=== PATIENT | female | born 1950 | race Caucasian/White ===

== ENCOUNTER 2016-06-11 16:45 | Emergency (ER) | payer OTHER ==
[2016-06-11 17:20] VITALS: BP 114/71; TEMP 99.3; BMI 16.9
--- NOTE | 2016-06-11 17:33 | ED.PDOC ---
General ED Provider: Dr. OJ KING Chief Complaint: Back Pain Stated Complaint: BACK PAIN T/L SPINE Time Seen by Physician: 17:32 (FALL LAST NIGHT NO NECK PAIN) Mode of Arrival: Walk-In Information Source: Patient Exam Limitations: No limitations Primary Care Provider: VENUS RODRIGUEZ Nursing and Triage Documentation Reviewed and Agree: Yes Review of Systems - Review Of Systems Constitutional: Reports: No symptoms Eyes: Reports: No symptoms Ears, Nose, Mouth, Throat: Reports: No symptoms Respiratory: Reports: No symptoms Cardiac: Reports: No symptoms GI: Reports: No symptoms : Reports: No symptoms Musculoskeletal: Reports: Back pain Skin: Reports: No symptoms Neurological: Reports: No symptoms Endocrine: Reports: No symptoms Hematologic/Lymphatic: Reports: No symptoms All Other Systems: Reviewed and Negative Past Medical History - Past Medical History Endocrine: Reports: None Cardiovascular: Reports: None Respiratory: Reports: COPD, Asthma Hematological: Reports: Anemia, Other (Von Willebrand) Gastrointestinal: Reports: Liver (Hepatitis C) Genitourinary: Reports: Kidney stones Neuro/Psych: Reports: Anxiety, Depression, Parkinson's Musculoskeletal: Reports: None, Other Cancer: Reports: Lung (CA right lung: October 15, 2014 appt with oncologist in [place]) Last Menstrual Period: unknown Other Pertinent Past Medical History: necrotizing fascitis right butt - Surgical History General Surgical History: Reports: , Cholecystectomy, Orthopedic (hip femur(x6), right knee, mandible surgery) - Family History Family History: Reports: Unknown - Social History Smoking Status: Current some day smoker Hx Substance Use: No Alcohol Screening: None Physical Exam - Physical Exam Appearance: Well-appearing, No pain distress, Well-nourished Eyes: SAMEERA, EOMI, Conjunctiva clear ENT: Ears normal, Nose normal, Oropharynx normal Respiratory: Airway patent, Breath sounds clear, Breath sounds equal, Respirations nonlabored Cardiovascular: RRR, Pulses normal, No rub, No murmur GI/: Soft, Nontender, No masses, Bowel sounds normal, No Organomegaly Musculoskeletal: Normal strength, ROM intact, No edema, No calf tenderness Skin: Warm, Dry, Normal color Neurological: Sensation intact, Motor intact, Reflexes intact, Cranial nerves intact, Alert, Oriented Psychiatric: Affect appropriate, Mood appropriate Critical Care Note - Critical Care Note Total Time (mins): 0 Course - Course Vital Signs: Temp Pulse Resp BP Pulse Ox 06/11/16 16:46 99.3 F 81 20 114/71 94 L Departure - Departure Time of Disposition: 19:00 Disposition: HOME SELF-CARE Discharge Problem: Backache Instructions: Back Pain (ED) Condition: Good Pt referred to PMD for follow-up: Yes Additional Instructions: Please call your Family Physician as soon as possible to schedule a follow-up appointment. Allergies/Adverse Reactions: Allergies ketorolac tromethamine [From Toradol] Adverse Reaction (Mild, Verified 06/11/16 16:53) morphine Adverse Reaction (Verified 06/11/16 16:53) nalbuphine HCl [From Nubain] Adverse Reaction (Verified 06/11/16 16:53) ondansetron HCl [From Zofran (as hydrochloride)] Adverse Reaction (Verified 16:53) pentazocine lactate [From Talwin] Adverse Reaction (Verified 06/11/16 16:53) propoxyphene napsylate [From Darvocet-N 100] Adverse Reaction (Verified 16:53) Home Medications: Ambulatory Orders Carisoprodol [Soma] 350 mg PO TID 12/16/12 Trazodone HCl 150 mg PO BEDTIME 07/19/13 Diazepam [Valium] 5 mg PO QID PRN 09/25/14 Gabapentin [Neurontin] 1,200 mg PO TID 09/25/14 Solifenacin Succinate [Vesicare] 10 mg PO DAILY 05/10/15
--- NOTE | 2016-06-11 18:44 | CT ---
EXAM: CT lumbar spine without contrast. HISTORY: Back pain post fall COMPARISON: CT lumbar spine 04/01/2011 TECHNIQUE: Serial axial images of the spine were obtained from the lower thoracic spine through the pelvis without contrast. These were viewed in multiple planes. FINDINGS: Vertebral bodies demonstrate no compression fracture or subluxation. There is narrowing and osteophyte formation noted at L3-L4 no for dash L5. L5-S1 is intact with small osteophyte forma tion. There is facet arthropathy in the lumbosacral spine. There is no lytic or blastic lesion. T here is no abnormal curvature of the lumbar spine. Old right lateral process fractures are identifi ed. L1-L2: Normal L2-L3: Normal L3-L4: Small broad-based disc bulge and facet arthropathy without central or neural foraminal narrow ing. L4-L5: Broad-based disc bulge with facet arthropathy with no central and mild left neural foraminal narrowing. There has been a left hemilaminectomy noted at this site. L5-S1: Broad-based disc bulge with facet arthropathy without significant central or neural foraminal narrowing. Limited views of the soft tissues demonstrate the lung bases are clear. There are calcifications in the kidneys bilaterally with no evidence of obstructive uropathy. There has been a prior cholecyst ectomy. There is dense material within the colon. IMPRESSION: 1. No acute compression fracture or subluxation of the lumbosacral spine. 2. Multilevel degenerative disease of the spine with posterior surgical changes at L4-L5 and mild l eft neural foraminal narrowing. If further evaluation is clinically indicated, MRI may be obtained. 3. No acute soft tissue abnormality is identified.
--- NOTE | 2016-06-11 18:46 | CT ---
EXAM: CT scan thoracic spine HISTORY: Fall COMPARISON: CT scan thoracic spine 04/01/2011 FINDINGS: Contiguous axial images obtained through the thoracic spine utilizing 3-mm collimation. Sagittal and coronal reconstructions were imaged and reviewed.. There is moderate generalized osteo penia. There is no acute fracture or dislocation. There is mild chronic compression deformity abou t the superior endplate of T6. There is no acute fracture or dislocation. Extensive cicatricial ch anges are seen within the right upper lobe which should be followed up with CT scan thorax. There a re emphysematous changes with bronchiectatic changes.. The spleen has been removed.. Nodular opaci ties in gastropathy ligament may be related to lymph nodes or varices. Lymph nodes are seen within the retrocrural region. IMPRESSION: No acute fracture or dislocation. Chronic compression deformity with moderate osteopenia. Likely cicatricial changes right upper lobe which be followed up with CT thorax.
== END 2016-06-11 18:49 | disposition home or self-care (01) ==
LOC: ED 16:45
DX: M54.9 Dorsalgia, unspecified (principal); F17.210 Nicotine dependence, cigarettes, uncomplicated
CPT/HCPCS: 99283

== ENCOUNTER 2016-09-25 14:24 | Outpatient (CLI) | payer OTHER | END 2016-09-25 14:25 | LOC: AMBL 14:24 | PROVIDERS: ATTEND Emergency Medicine | DX: M54.9 Dorsalgia, unspecified (principal); R06.9 Unspecified abnormalities of breathing; R11.10 Vomiting, unspecified; X50.0XXA Overexertion from strenuous movement or load, initial encounter ==

== ENCOUNTER 2016-10-03 15:49 | Emergency (ER) ==
[2016-10-03 16:00] VITALS: BP 153/85; TEMP 99.6; BMI 17.5
--- NOTE | 2016-10-03 16:10 | ED.PDOC ---
General ED Provider: Dr. ERNESTO JAUREGUI JR Chief Complaint: Back Pain Stated Complaint: seen at [facility] er due to back pain and unable to keep meds down--has fx of L-1--arrived with back brace on--given rx for phenergan--also sees dr jansen --oncologist due to ca lung last year--has been vomiting some blood --has nausea--[ End ] Time Seen by Physician: 16:10 Mode of Arrival: Walk-In Information Source: Patient Exam Limitations: No limitations Primary Care Provider: VENUS RODRIGUEZ Nursing and Triage Documentation Reviewed and Agree: No Review of Systems - Review Of Systems Constitutional: Reports: Malaise Eyes: Reports: No symptoms Ears, Nose, Mouth, Throat: Reports: No symptoms Respiratory: Reports: No symptoms Cardiac: Reports: No symptoms GI: Reports: No symptoms : Reports: No symptoms Musculoskeletal: Reports: Back pain Skin: Reports: No symptoms Neurological: Reports: No symptoms Endocrine: Reports: No symptoms Hematologic/Lymphatic: Reports: No symptoms All Other Systems: Other Past Medical History - Past Medical History Endocrine: Reports: None Cardiovascular: Reports: None Respiratory: Reports: COPD, Asthma Hematological: Reports: Anemia, Other (Von Willebrand) Gastrointestinal: Reports: Liver (Hepatitis C) Genitourinary: Reports: Kidney stones Neuro/Psych: Reports: Anxiety, Depression, Parkinson's Musculoskeletal: Reports: None, Other Cancer: Reports: Lung (CA right lung: October 15, 2014 appt with oncologist in [place]) Last Menstrual Period: menopause Other Pertinent Past Medical History: necrotizing fascitis right butt - Surgical History General Surgical History: Reports: , Cholecystectomy, Orthopedic (hip femur(x6), right knee, mandible surgery) - Family History Family History: Reports: Unknown - Social History Smoking Status: Current some day smoker Hx Substance Use: No Alcohol Screening: None Physical Exam - Physical Exam Appearance: Ill-appearing, Thin Pain Distress: Moderate Eyes: SAMEERA, EOMI, Conjunctiva clear ENT: Ears normal, Nose normal, Oropharynx normal Neck: Supple Respiratory: Airway patent, Breath sounds clear, Breath sounds equal, Respirations nonlabored Cardiovascular: RRR, Pulses normal, No rub, No murmur GI/: Nontender Musculoskeletal: Normal strength, ROM intact, No edema, No calf tenderness ( gum rolling machine tender) Skin: Warm, Dry, Normal color Neurological: Sensation intact, Motor intact, Reflexes intact, Cranial nerves intact, Alert, Oriented Psychiatric: Affect appropriate, Mood appropriate Critical Care Note - Critical Care Note Total Time (mins): 0 Course - Course Orders, Labs, Meds: Orders Category Date Time Status Hydromorphone HCl/Pf [Dilaudid 2 mg/ml Syringe] MEDS 10/03/16 16:18 Discontinued 2 mg IM ONCE STA Promethazine HCl [Phenergan 25 mg/ml Vial] MEDS 10/03/16 16:18 Discontinued 12.5 mg IM ONCE STA Medications Discontinued Medications Generic Name Dose Route Start Last Admin Trade Name Freq PRN Reason Stop Dose Admin Hydromorphone HCl 2 mg 10/03/16 16:18 10/03/16 16:32 Dilaudid 2 Mg/Ml Syringe IM 10/03/16 16:19 2 mg ONCE STA Administration Promethazine HCl 12.5 mg 10/03/16 16:18 10/03/16 16:31 Phenergan 25 Mg/Ml Vial IM 10/03/16 16:19 12.5 mg ONCE STA Administration Vital Signs: Temp Pulse Resp BP Pulse Ox 10/03/16 15:49 99.6 F 80 16 153/85 H 93 L Departure - Departure Time of Disposition: 16:19 Disposition: HOME SELF-CARE Discharge Problem: Vertebral fracture, closed Instructions: Vertebral Compression Fracture (ED) Condition: Good Pt referred to PMD for follow-up: Yes Additional Instructions: pain medication should be given by treating physician since you are seen in [place] recommend discuss poor pain control with PMD or with ER in town no further pain medication through [place] [facility] May also try reglan for nausea Prescriptions: Metoclopramide HCl [Reglan] 10 mg PO QID PRN #14 tablet PRN Reason: Nausea / Vomiting Allergies/Adverse Reactions: Allergies ketorolac tromethamine [From Toradol] Adverse Reaction (Mild, Verified 10/03/16 15:58) acetaminophen [From Fioricet] Adverse Reaction (Verified 10/03/16 15:59) butalbital [From Fioricet] Adverse Reaction (Verified 10/03/16 15:59) caffeine [From Fioricet] Adverse Reaction (Verified 10/03/16 15:59) morphine Adverse Reaction (Verified 10/03/16 15:58) nalbuphine HCl [From Nubain] Adverse Reaction (Verified 10/03/16 15:58) ondansetron HCl [From Zofran (as hydrochloride)] Adverse Reaction (Verified 02/11 15:58) pentazocine lactate [From Talwin] Adverse Reaction (Verified 10/03/16 15:58) propoxyphene napsylate [From Darvocet-N 100] Adverse Reaction (Verified 15:58) Home Medications: Ambulatory Orders Carisoprodol [Soma] 350 mg PO TID 12/16/12 Trazodone HCl 150 mg PO BEDTIME 07/19/13 Diazepam [Valium] 5 mg PO QID PRN 09/25/14 Gabapentin [Neurontin] 1,200 mg PO TID 09/25/14 Solifenacin Succinate [Vesicare] 10 mg PO DAILY 05/10/15 Metoclopramide HCl [Reglan] 10 mg PO QID PRN #14 tablet 10/03/16 Oxycodone HCl 10 mg PO DIRECTED PRN 10/03/16
[2016-10-03] MEDS ORDERED: PHENERGAN 25 MG/ML VIAL IM STA (16:18)
[2016-10-03] MEDS ORDERED: DILAUDID 2 MG/ML SYRINGE IM STA (16:18)
== END 2016-10-03 17:00 | disposition home or self-care (01) ==
LOC: ED 15:49
DX: M54.9 Dorsalgia, unspecified (principal); S32.010D Wedge compression fracture of first lumbar vertebra, subsequent encounter for fracture with routine healing; F17.210 Nicotine dependence, cigarettes, uncomplicated
CPT/HCPCS: 96372; 99282

== ENCOUNTER 2016-11-09 08:58 | Outpatient (CLI) | payer OTHER ==
--- NOTE | 2016-11-09 09:55 | CT ---
Exam: CT of the abdomen pelvis without intravenous or oral contrast. Comparison: 07/19/2013. CT exam of the abdomen pelvis performed 09/11/2016 Reason for exam: Generalized abdominal pain. FINDINGS: Image interpretation is limited by the lack of intravenous contrast. There is mild basilar atelectasis. There is a partially spiculated density in the right lung base m easuring 7 mm best seen on axial image number 12 and coronal image number 57. No pleural effusion. The gallbladder and spleen have been removed. Calcifications are seen within the abdominal aorta an d distal arterial vasculature. There is mild thickening of the gastric wall. High density lesions are seen in the parenchyma of both kidneys. There is an 8 mm exophytic nodular isodense lesion in the left inferior renal pole. No hydronephrosis or hydroureter is seen in either kidney. No focal small bowel dilatation or transition point. No inflammatory changes are seen in the abdomi nal or pelvic fat. No intra-abdominal free air. Operative changes are seen within the pelvis. Mild rectal wall thickening. There is small amount of pelvic free fluid. Compression deformity in the L1 vertebral body with appr oximately 50% loss of vertebral body height , new since 09/11/2016. Impression: 1. Compression deformity in the L1 vertebral body that is new when compared to the CT exam performed on 09/11/2016. 2. Mild thickening of the distal rectum that may be accentuated by non distension. If clinical conc daniella exists, direct visualization may be performed. 3. Mild thickening of the gastric wall of unknown clinical significance. If clinical concern exists , direct visualization may be performed. 4. Mild basilar atelectasis with a 7 mm nodular density in the right lung base. Recommend 3-month follow-up CT of the chest to document stability / resolution
== END 2016-11-09 08:59 | disposition home or self-care (01) ==
LOC: RAD 08:58
PROVIDERS: ATTEND Emergency Medicine
DX: R10.84 Generalized abdominal pain (principal)

== ENCOUNTER → 2016-11-14 | Outpatient (POV) | LOC: OUTPT 00:01 | PROVIDERS: ATTEND Otolaryngology | DX: H91.90 Unspecified hearing loss, unspecified ear (principal) | CPT/HCPCS: 92557; 92567 ==

== ENCOUNTER 2016-12-15 11:37 | Outpatient (CLI) ==
[2016-12-15 12:29] LABS: BASOPHILS # (AUTO) 0.1 K/uL (0-0.2); BASOPHILS % (AUTO) 0.9 % (0.0-3.0); EOSINOPHILS # (AUTO) 0.2 K/ul (0.0-0.7); EOSINOPHILS % (AUTO) 1.7 % (0.0-7.0); HEMATOCRIT 46.6 % (37.0-47.0); HEMOGLOBIN 14.8 g/dl (12.0-16.0); IMMATURE GRANULOCYTE % (AUTO) 3.6 % (0.0-5.0); LYMPHOCYTES # (AUTO) 2.1 K/uL (0.60-3.4); LYMPHOCYTES % (AUTO) 23.4 (10.0-50.0); MEAN CORPUSCULAR HEMOGLOBIN 29.3 pg (27.0-31.0); MEAN CORPUSCULAR HGB CONC 31.8 (31.8-35.4); MEAN CORPUSCULAR VOLUME 92.3 fl (81.0-99.0); MONOCYTES # (AUTO) 3.4 K/uL (0.4-2.0); MONOCYTES % (AUTO) 37.2 (0-10); NEUTROPHILS % (AUTO) 33.2; PLATELET COUNT 211 10^3/uL (140-440); RED BLOOD COUNT 5.05 10^6/ul (4.20-5.40); WHITE BLOOD COUNT 9.09 K/ul (4.6-10.2)
[2016-12-15 12:54] LABS: ALBUMIN 4.4 g/dL (3.4-5.0); ALBUMIN/GLOBULIN RATIO 1.22; ANION GAP 18.1; BILIRUBIN,TOTAL 0.57 mg/dL (0.00-1.20); BUN/CREATININE RATIO 10.52; CALCIUM 9.7 mg/dL (8.2-10.2); CREATININE 0.76 mg/dL (0.60-1.30); POTASSIUM 4.1 mmol/L (3.5-5.10)
== END 2016-12-15 11:38 | disposition home or self-care (01) ==
LOC: LAB 11:37
PROVIDERS: ATTEND Emergency Medicine
DX: C34.11 Malignant neoplasm of upper lobe, right bronchus or lung (principal); J41.8 Mixed simple and mucopurulent chronic bronchitis
CPT/HCPCS: 36415; 80053; 85025

== ENCOUNTER 2017-02-11 15:44 | Inpatient (IN) ==
[2017-02-11] MEDS ORDERED: ROCEPHIN IM STA (16:05)
[2017-02-11] MEDS ORDERED: LIDOCAINE HCL 1% SDV SUBCUT STA (16:05)
[2017-02-11] MEDS ORDERED: ZITHROMAX PO STA (16:05)
[2017-02-11] MEDS ORDERED: DECADRON 4 MG/ML SDV IM STA (16:05)
[2017-02-11] MEDS ORDERED: DUONEB NEB STA (16:07)
--- NOTE | 2017-02-11 16:29 | CT ---
EXAM: CT chest without contrast HISTORY: Cough TECHNIQUE: Multi-slice transaxial helical with coronal and sagittal reformed images CONTRAST: None COMPARISON: CT chest from 09/24/2014 FINDINGS: The ascending thoracic aorta is ectatic to 33 mm. The aortic arch and descending thoracic aorta have normal caliber. The heart size is normal. No pericardial or pleural effusions are eviden t. No pericardial or pleural effusions are detected. No suspicious lymphadenopathy is evident. The lungs are mildly emphysematous. There is probable fibrosis in the right upper lobe at this site of a previous mass. There are multiple alveolar opacities in the right lower lobe and to a lesser degre e the left lower lobe. There is mild bronchiectasis with mucus plugging. Minimal additional opaciti es are noted middle lobe. There are cortical calcifications in the right kidney. There is a cyst at the interpolar region of t he left kidney that is slightly exophytic and high in attenuation. The spleen has been resected sinc e the prior study. The gallbladder is absent without biliary dilatation. The pancreas and adrenal g lands are normal. No hepatic lesions. The bones are free of suspicious osteolytic or osteoblastic lesions. There are chronic compression f ractures at L1, T7, and T6. The thoracic kyphosis is increased secondarily. IMPRESSION: 1. Bibasilar pneumonia. 2. Fibrosis in the right upper lobe at the site of a previous suspicious nodule. 3. Mild emphysema. 4. Bronchiectasis with mucus plugging. Number five interval splenectomy. 6. Hypodensity at the interpolar region of the left kidney has Hounsfield attenuation greater than e xpected for a simple cyst. Recommend follow-up ultrasound. 7. Chronic compression fractures at L1, T7, and 02/06.
[2017-02-11 16:33] LABS: HEMATOCRIT 40.2 % (37.0-47.0); HEMOGLOBIN 13.3 g/dl (12.0-16.0); MEAN CORPUSCULAR HGB CONC 33.1 (31.8-35.4); MEAN CORPUSCULAR VOLUME 90.7 fl (81.0-99.0); PLATELET COUNT 348 10^3/uL (140-440); RED BLOOD COUNT 4.43 10^6/ul (4.20-5.40)
[2017-02-11 16:51] LABS: WHITE BLOOD COUNT 26.25 K/ul (4.6-10.2)
[2017-02-11 16:52] LABS: ANISOCYTOSIS NOT PRESENT (NOT PRESENT)
[2017-02-11 17:00] LABS: ALBUMIN 3.6 g/dL (3.4-5.0); ALBUMIN/GLOBULIN RATIO 1.03; ANION GAP 13.4; BILIRUBIN,TOTAL 0.27 mg/dL (0.00-1.20); BUN/CREATININE RATIO 22.47; CALCIUM 10.6 mg/dL (8.2-10.2); CREATININE 0.89 mg/dL (0.60-1.30); POTASSIUM 3.4 mmol/L (3.5-5.10); TOTAL PROTEIN 7.1 g/dL (5.8-8.1)
[2017-02-11] MEDS ORDERED: ZITHROMAX 500 MG in SODIUM CHLORIDE 250 ML IV STA (17:10)
[2017-02-11] MEDS ORDERED: NON-FORMULARY MEDICATION (Oxycodone Hcl [Oxycodone Hcl] 10 MG) PO PRN (17:11)
--- NOTE | 2017-02-11 17:16 | ED.PDOC ---
General ED Provider: Dr. OJ KING Chief Complaint: Respiratory Complaint Stated Complaint: cough,wheez Time Seen by Physician: 16:00 Mode of Arrival: Walk-In Information Source: Patient Exam Limitations: No limitations Primary Care Provider[facility] Nursing and Triage Documentation Reviewed and Agree: Yes Respiratory Complaint Exam - Respiratory Complaint/Exam Symptoms Are: Still present Timing: Constant Initial Severity: Mild Current Severity: Mild Location: Throat, Chest Character: Reports: Non-productive cough Aggravating: Reports: None Alleviating: Reports: Spontaneous resolution Associated Signs and Symptoms: Reports: Wheezing, Nasal congestion. Denies: Rapid breathing, Dyspnea, Fever, Chills, Chest pain, Pleuritic chest pain, Hemoptysis, Dizziness, Calf pain, Calf swelling, Edema, URI, Hoarseness, Sinus discomfort, Vomiting, Sore throat, Weight loss, Decreased oral intake, Increased thirst, Increased appetite, Increased urination Related History: Reports: Similar episode History of Healthcare-Acquired Pneumonia: No Related Surgical History: Reports: None Pulmonary Embolism Risk Factors: Bedrest Review of Systems - Review Of Systems Constitutional: Reports: Chills, Fever, Malaise, Weakness Eyes: Reports: No symptoms Ears, Nose, Mouth, Throat: Reports: No symptoms Respiratory: Reports: Cough, Short of air, Wheezing Cardiac: Reports: No symptoms GI: Reports: No symptoms : Reports: No symptoms Musculoskeletal: Reports: No symptoms Skin: Reports: No symptoms Neurological: Reports: No symptoms Endocrine: Reports: No symptoms Hematologic/Lymphatic: Reports: No symptoms All Other Systems: Reviewed and Negative Past Medical History - Past Medical History Endocrine: Reports: None Cardiovascular: Reports: None Respiratory: Reports: COPD, Asthma Hematological: Reports: Anemia, Other (Von Willebrand) Gastrointestinal: Reports: Liver (Hepatitis C) Genitourinary: Reports: Kidney stones Neuro/Psych: Reports: Anxiety, Depression, Parkinson's Musculoskeletal: Reports: None, Other Cancer: Reports: Lung (CA right lung: October 15, 2014 appt with oncologist in [place]) Last Menstrual Period: menopause Other Pertinent Past Medical History: necrotizing fascitis right butt - Surgical History General Surgical History: Reports: , Cholecystectomy, Orthopedic (hip femur(x6), right knee, mandible surgery) - Family History Family History: Reports: Unknown - Social History Smoking Status: Former smoker Hx Substance Use: No Alcohol Screening: None Physical Exam - Physical Exam Appearance: Well-appearing, No pain distress, Well-nourished Eyes: SAMEERA, EOMI, Conjunctiva clear ENT: Ears normal, Nose normal, Oropharynx normal Respiratory: Rhonchi, Wheezes Cardiovascular: RRR, Pulses normal, No rub, No murmur GI/: Soft, Nontender, No masses, Bowel sounds normal, No Organomegaly Musculoskeletal: Normal strength, ROM intact, No edema, No calf tenderness Skin: Warm, Dry, Normal color Neurological: Sensation intact, Motor intact, Reflexes intact, Cranial nerves intact, Alert, Oriented Psychiatric: Affect appropriate, Mood appropriate Interpretation - Radiology Interpretation Radiology Interpretation By: Radiologist Radiology Results: Positive (pnumonia) Physician Notification - Case Discussed Physician Notified: pmd Time of Notification: 17:15 (admitt) Critical Care Note - Critical Care Note Total Time (mins): 0 Course - Course Hematology/Chemistry: 02/11/17 16:23 02/11/17 16:23 Orders, Labs, Meds: Lab Review 02/11/17 02/11/17 02/11/17 16:23 16:23 16:23 WBC 26.25 H RBC 4.43 Hgb 13.3 Hct 40.2 MCV 90.7 MCH 30.0 MCHC 33.1 RDW Coeff of Krista 16.6 H Plt Count 348 Neutrophils % (Manual) 67.0 Band Neutrophils % 1.0 Lymphocytes % (Manual) 5.0 L Monocytes % (Manual) 23.0 H Metamyelocytes % 1.0 Myelocytes % 1.0 Reactive Lymphocytes 2.0 Anisocytosis Not present D-Dimer (Manual) 727.37 Sodium 141 Potassium 3.4 L Chloride 104 Carbon Dioxide 27 Anion Gap 13.4 BUN 20 H Creatinine 0.89 Estimated GFR (MDRD) 63.00 BUN/Creatinine Ratio 22.47 Glucose 81 L Lactic Acid Calcium 10.6 H Total Bilirubin 0.27 AST 14 L ALT 11 L Alkaline Phosphatase 79 Total Protein 7.1 Albumin 3.6 Globulin 3.5 Albumin/Globulin Ratio 1.03 02/11/17 16:23 WBC RBC Hgb Hct MCV MCH MCHC RDW Coeff of Krista Plt Count Neutrophils % (Manual) Band Neutrophils % Lymphocytes % (Manual) Monocytes % (Manual) Metamyelocytes % Myelocytes % Reactive Lymphocytes Anisocytosis D-Dimer (Manual) Sodium Potassium Chloride Carbon Dioxide Anion Gap BUN Creatinine Estimated GFR (MDRD) BUN/Creatinine Ratio Glucose Lactic Acid 12.6 Calcium Total Bilirubin AST ALT Alkaline Phosphatase Total Protein Albumin Globulin Albumin/Globulin Ratio Orders Category Date Time Status ADMIT PATIENT INPATIENT .TO [facility] B[facility] ADMISSION 02/11/17 17: 08 Ordered ABG DRAW REQUEST Stat CARDIO 02/11/17 16:06 Ordered EKG-(IP & OP ONLY) DAILY CARDIO 02/12/17 06:00 Ordered EKG-(IP & OP ONLY) DAILY CARDIO 02/13/17 06:00 Ordered EKG-(IP & OP ONLY) DAILY CARDIO 02/14/17 06:00 Ordered NEBULIZER TREATMENT Stat CARDIO 02/11/17 16:07 Ordered OXYGEN Routine CARDIO 02/11/17 17:09 Ordered ACTIVITY .Complete BR CARE 02/11/17 17:08 Ordered TELEMETRY MONITORING TELE CARE 02/11/17 17:09 Ordered REGULAR DIET DIETARY 02/11/17 Dinner Ordered ABG Stat LAB 02/11/17 16:06 Ordered BLOOD CULTURE Stat LAB 02/11/17 16:23 Received BNP [B-TYPE NATRIURETIC PEPTIDE] Stat LAB 02/11/17 17:08 Ordered CBC W/ AUTO DIFF DAILY@0600 LAB 02/12/17 06:00 Ordered CBC W/ AUTO DIFF DAILY@0600 LAB 02/13/17 06:00 Ordered CBC W/ AUTO DIFF DAILY@0600 LAB 02/14/17 06:00 Ordered CBC W/ AUTO DIFF DAILY@0600 LAB 02/15/17 06:00 Ordered CBC W/ AUTO DIFF DAILY@0600 LAB 02/16/17 06:00 Ordered CBC W/ AUTO DIFF DAILY@0600 LAB 02/17/17 06:00 Ordered CBC W/ AUTO DIFF DAILY@0600 LAB 02/18/17 06:00 Ordered CBC W/ AUTO DIFF DAILY@0600 LAB 02/19/17 06:00 Ordered CBC W/ AUTO DIFF DAILY@0600 LAB 02/20/17 06:00 Ordered CBC W/ AUTO DIFF DAILY@0600 LAB 02/21/17 06:00 Ordered CBC W/ AUTO DIFF DAILY@0600 LAB 02/22/17 06:00 Ordered CBC W/ AUTO DIFF DAILY@0600 LAB 02/23/17 06:00 Ordered CBC W/ AUTO DIFF DAILY@0600 LAB 02/24/17 06:00 Ordered CBC W/ AUTO DIFF DAILY@0600 LAB 02/25/17 06:00 Ordered CBC W/ AUTO DIFF DAILY@06 LAB 02/26/17 06:00 Ordered CBC W/ AUTO DIFF DAILY@06 LAB 02/27/17 06:00 Ordered CBC W/ AUTO DIFF DAILY@0600 LAB 02/28/17 06:00 Ordered CBC W/ AUTO DIFF DAILY@0600 LAB 03/01/17 06:00 Ordered CBC W/ AUTO DIFF DAILY@0600 LAB 03/02/17 06:00 Ordered CBC W/ AUTO DIFF DAILY@06 LAB 03/03/17 06:00 Ordered CBC W/ AUTO DIFF Stat LAB 02/11/17 16:23 Completed COMPREHENSIVE METABOLIC PANEL DAILY@0600 LAB 02/12/17 06:00 Ordered COMPREHENSIVE METABOLIC PANEL DAILY@0600 LAB 02/13/17 06:00 Ordered COMPREHENSIVE METABOLIC PANEL DAILY@0600 LAB 02/14/17 06:00 Ordered COMPREHENSIVE METABOLIC PANEL DAILY@0600 LAB 02/15/17 06:00 Ordered COMPREHENSIVE METABOLIC PANEL DAILY@0600 LAB 02/16/17 06:00 Ordered COMPREHENSIVE METABOLIC PANEL DAILY@0600 LAB 02/17/17 06:00 Ordered COMPREHENSIVE METABOLIC PANEL DAILY@0600 LAB 02/18/17 06:00 Ordered COMPREHENSIVE METABOLIC PANEL DAILY@06 LAB 02/19/17 06:00 Ordered COMPREHENSIVE METABOLIC PANEL DAILY@06 LAB 02/20/17 06:00 Ordered COMPREHENSIVE METABOLIC PANEL DAILY@0600 LAB 02/21/17 06:00 Ordered COMPREHENSIVE METABOLIC PANEL DAILY@0600 LAB 02/22/17 06:00 Ordered COMPREHENSIVE METABOLIC PANEL DAILY@0600 LAB 02/23/17 06:00 Ordered COMPREHENSIVE METABOLIC PANEL DAILY@0600 LAB 02/24/17 06:00 Ordered COMPREHENSIVE METABOLIC PANEL DAILY@0600 LAB 02/25/17 06:00 Ordered COMPREHENSIVE METABOLIC PANEL DAILY@0600 LAB 02/26/17 06:00 Ordered COMPREHENSIVE METABOLIC PANEL DAILY@0600 LAB 02/27/17 06:00 Ordered COMPREHENSIVE METABOLIC PANEL DAILY@0600 LAB 02/28/17 06:00 Ordered COMPREHENSIVE METABOLIC PANEL DAILY@0600 LAB 03/01/17 06:00 Ordered COMPREHENSIVE METABOLIC PANEL DAILY@0600 LAB 03/02/17 06:00 Ordered COMPREHENSIVE METABOLIC PANEL DAILY@0600 LAB 03/03/17 06:00 Ordered COMPREHENSIVE METABOLIC PANEL Stat LAB 09/17/17 16:23 Completed CREATINE KINASE Q8H LAB 02/11/17 23:15 Ordered CREATINE KINASE Q8H LAB 02/12/17 07:15 Ordered D-DIMER Stat LAB 02/11/17 16:23 Completed LACTIC ACID Stat LAB 02/11/17 16:23 Completed MANUAL DIFFERENTIAL Stat LAB 02/11/17 16:23 Completed MOLECULAR GROUP A STREP Stat LAB 02/11/17 16:05 Results PROCALCITONIN Stat LAB 02/11/17 16:23 Received STREP SCREEN Stat LAB 02/11/17 16:05 Results TROPONIN I Q8H LAB 02/11/17 23:15 Ordered TROPONIN I Q8H LAB 02/12/17 07:15 Ordered UA [URINALYSIS C & S IF INDICATED] Stat LAB 02/11/17 16:07 Uncollected Albuterol Sulfate [Proair Hfa] MEDS 02/11/17 17:30 Ordered 8.5 gm IH Q4-6H Azithromycin Inj [Zithromax] 500 mg MEDS 02/11/17 17:10 Ordered 0.9 % Sodium Chloride [Sodium Chloride] 250 ml IV ONCE Azithromycin [Zithromax] MEDS 02/11/17 16:05 Discontinued 500 mg PO ONCE STA Ceftriaxone Sodium [Rocephin] MEDS 02/11/17 16:05 Discontinued 1 gm IM ONCE STA Ceftriaxone Sodium [Rocephin] 1 gm MEDS 02/12/17 09:00 Ordered 0.9 % Sodium Chloride [Sodium Chloride] 50 ml IV DAILY Dexamethasone 4 mg/ml Inj [Decadron 4 mg/ml Sdv] MEDS 02/11/17 16:05 Discontinued 8 mg IM ONCE STA Diazepam [Valium] MEDS 02/11/17 17:11 Ordered 5 mg PO QID PRN Ipratropium/Albuterol Neb [Duoneb] MEDS 02/11/17 16:07 Discontinued 1 vial NEB ONCE STA Lidocaine HCl/Pf [Lidocaine HCl 1% Sdv] MEDS 02/11/17 16:05 Discontinued 5 ml SUBCUT ONCE STA Oxycodone HCl [Oxycodone HCl] MEDS 02/11/17 17:11 Ordered 10 mg PO DIRECTED PRN Sodium Chloride 0.9% [Sodium Chloride] 1,000 ml MEDS 02/11/17 17:30 Ordered IV 75 mls/hr CHEST, 2 VIEWS PA & LAT Stat RADS 02/12/17 07:[address] CHEST W/O CONTRAST Stat RADS 02/11/17 16:04 Completed Medications Generic Name Dose Route Start Last Admin Trade Name Freq PRN Reason Stop Dose Admin Ceftriaxone Sodium 1 gm/ 50 mls @ 75 mls/hr 02/12/17 09:00 Sodium Chloride IV DAILY EMY Sodium Chloride 1,000 mls @ 75 mls/hr 02/11/17 17:30 Sodium Chloride IV .[id number] EMY Azithromycin 500 mg/ Sodium 250 mls @ 125 mls/hr 02/11/17 17:10 Chloride IV 02/11/17 19:09 ONCE STA Discontinued Medications Generic Name Dose Route Start Last Admin Trade Name Freq PRN Reason Stop Dose Admin Albuterol/Ipratropium 1 vial 02/11/17 16:07 Duoneb NEB 02/11/17 16:08 ONCE STA Azithromycin 500 mg 02/11/17 16:05 02/11/17 16:45 Zithromax PO 02/11/17 16:06 500 mg ONCE STA Administration Ceftriaxone Sodium 1 gm 02/11/17 16:05 02/11/17 16:49 Rocephin IM 02/11/17 16:06 1 gm ONCE STA Administration Dexamethasone Sodium Phosphate 8 mg 02/11/17 16:05 02/11/17 16:49 Decadron 4 Mg/Ml Sdv IM 02/11/17 16:06 8 mg ONCE STA Administration Lidocaine HCl 5 ml 02/11/17 16:05 02/11/17 16:50 Lidocaine Hcl 1% Sdv SUBCUT 02/11/17 16:06 5 ml ONCE STA Administration Vital Signs: Temp Pulse Resp BP Pulse Ox 02/11/17 15:45 98.8 F 112 H 24 151/74 H 86 L Departure - Departure Time of Disposition: 17:15 Disposition: ADMITTED INPATIENT Discharge Problem: Pneumonia Qualifiers: Pneumonia type: due to unspecified organism Lung location: unspecified part of lung Instructions: Bacterial Pneumonia (ED) Condition: Good Pt referred to PMD for follow-up: Yes Allergies/Adverse Reactions: Allergies ketorolac tromethamine [From Toradol] Adverse Reaction (Mild, Verified 02/11/17 15:54) acetaminophen [From Fioricet] Adverse Reaction (Verified 02/11/17 15:54) butalbital [From Fioricet] Adverse Reaction (Verified 02/11/17 15:54) caffeine [From Fioricet] Adverse Reaction (Verified 02/11/17 15:54) morphine Adverse Reaction (Verified 02/11/17 15:54) nalbuphine HCl [From Nubain] Adverse Reaction (Verified 02/11/17 15:54) ondansetron HCl [From Zofran (as hydrochloride)] Adverse Reaction (Verified 15:54) pentazocine lactate [From Talwin] Adverse Reaction (Verified 02/11/17 15:54) propoxyphene napsylate [From Darvocet-N 100] Adverse Reaction (Verified 15:54) Home Medications: Ambulatory Orders Diazepam [Valium] 5 mg PO QID PRN 09/25/14 Gabapentin [Neurontin] 800 mg PO QID 09/25/14 Oxycodone HCl 10 mg PO DIRECTED PRN 10/03/16
[2017-02-11] MEDS ORDERED: SODIUM CHLORIDE 1,000 ML IV SCH (17:30)
[2017-02-11 17:47] LABS: ABG PCO2 41.5 mmHg (35-45); ABG PH 7.435 (7.35-7.45)
[2017-02-11 17:48] LABS: ABG BASE EXCESS 4 (-2.0-2.0); ABG HCO3 27.8 (22.0-26.0); ABG TCO2 29 (22.0-28.0)
[2017-02-11 19:00] LABS: BILIRUBIN,URINE Negative (NEGATIVE); KETONES,URINE Negative (NEGATIVE); LEUKOCYTE ESTERASE ,URINE 2+ (NEGATIVE); NITRITE,URINE Negative (NEGATIVE); PROTEIN,URINE Negative (NEGATIVE); URINE, BLOOD Negative (NEGATIVE)
[2017-02-11 19:08] LABS: ADD URINE MICROSCOPIC YES; BACTERIA,URINE TRACE (NOT PRESENT)
[2017-02-11 19:54] VITALS: BMI 18.3
[2017-02-11] MEDS ORDERED: NON-FORMULARY MEDICATION (Gabapentin [Neurontin] 800 MG) PO SCH ×22 (21:45)
[2017-02-11] MEDS ORDERED: NON-FORMULARY MEDICATION (Trazodone Hcl [Trazodone Hcl] 150 MG) PO SCH ×22 (21:45)
[2017-02-11] MEDS ORDERED: NEURONTIN ONE ×2 (21:50)
[2017-02-11] MEDS ORDERED: DESYREL ONE (21:51)
[2017-02-11] MEDS ORDERED: OXYCODONE ONE (21:52)
[2017-02-11] MEDS: SOLU-MEDROL 40 MG IVP SCH (21:56)
[2017-02-11] MEDS: VALIUM PO PRN (22:08)
[2017-02-11 23:23] LABS: TROPONIN I 0.015 ng/ml (0.0000-0.4000)
[2017-02-12] MEDS: SOLU-MEDROL 40 MG IVP SCH ×3 (04:01→21:54)
[2017-02-12] MEDS ORDERED: OXYCODONE ONE ×2 (05:12→09:42)
[2017-02-12 07:24] LABS: HEMATOCRIT 39.7 % (37.0-47.0); HEMOGLOBIN 12.8 g/dl (12.0-16.0); MEAN CORPUSCULAR HEMOGLOBIN 29.8 pg (27.0-31.0); MEAN CORPUSCULAR HGB CONC 32.2 (31.8-35.4); MEAN CORPUSCULAR VOLUME 92.5 fl (81.0-99.0); PLATELET COUNT 335 10^3/uL (140-440); RED BLOOD COUNT 4.29 10^6/ul (4.20-5.40); WHITE BLOOD COUNT 25.89 K/ul (4.6-10.2)
[2017-02-12 07:31] LABS: ANISOCYTOSIS NOT PRESENT (NOT PRESENT)
[2017-02-12 07:42] LABS: ALBUMIN 2.9 g/dL (3.4-5.0); ALBUMIN/GLOBULIN RATIO 0.94; ANION GAP 11.5; BILIRUBIN,TOTAL 0.23 mg/dL (0.00-1.20); BUN/CREATININE RATIO 27.94; CALCIUM 9.4 mg/dL (8.2-10.2); CREATININE 0.68 mg/dL (0.60-1.30); POTASSIUM 4.5 mmol/L (3.5-5.10); TROPONIN I 0.011 ng/ml (0.0000-0.4000)
[2017-02-12] MEDS: NEURONTIN PO SCH ×8 (08:32→21:55)
[2017-02-12] MEDS: ROCEPHIN 1 GM in SODIUM CHLORIDE 50 ML IV SCH (08:33)
[2017-02-12] MEDS: MUCINEX PO SCH ×2 (09:35→21:55)
[2017-02-12] MEDS: VALIUM PO PRN ×2 (09:36→22:05)
[2017-02-12] MEDS ORDERED: PERCOCET 10-325 PO PRN (09:53)
--- NOTE | 2017-02-12 10:35 | DI ---
EXAM: Two views of the chest. History: Pneumonia Comparison: Chest CT 02/11 2017 Findings: Heart size is normal. Scarring or infiltrate again seen within the right upper lobe. No developing opacities. The visualized osseous structures unchanged. No pleural fluid and no pneumoth orax. Emphysema. Impression: No significant interval change in the scarring or infiltrate within the right upper lobe . No developing opacities.
[2017-02-12] MEDS: SODIUM CHLORIDE 1,000 ML IV SCH (11:06)
[2017-02-12] MEDS: OXYCODONE PO PRN ×2 (11:56→19:26)
[2017-02-12] MEDS: DUONEB NEB SCH ×3 (13:47→23:13)
[2017-02-12] MEDS ORDERED: PROAIR HFA IH ONE (19:11)
[2017-02-12] MEDS: PROAIR HFA IH SCH (19:11)
[2017-02-12] MEDS: DESYREL PO SCH (21:55)
[2017-02-13] MEDS: PROAIR HFA IH SCH ×3 (00:36→21:25)
[2017-02-13] MEDS: SOLU-MEDROL 40 MG IVP SCH ×3 (04:11→20:37)
[2017-02-13] MEDS: OXYCODONE PO PRN ×4 (04:27→23:09)
[2017-02-13 05:03] LABS: HEMOGLOBIN 12.7 g/dl (12.0-16.0); MEAN CORPUSCULAR HEMOGLOBIN 29.6 pg (27.0-31.0); MEAN CORPUSCULAR HGB CONC 31.8 (31.8-35.4); MEAN CORPUSCULAR VOLUME 93.2 fl (81.0-99.0); PLATELET COUNT 378 10^3/uL (140-440); RED BLOOD COUNT 4.29 10^6/ul (4.20-5.40); WHITE BLOOD COUNT 33.46 K/ul (4.6-10.2)
[2017-02-13 05:20] LABS: ALBUMIN/GLOBULIN RATIO 1.03; ANION GAP 12.4; BILIRUBIN,TOTAL 0.23 mg/dL (0.00-1.20); BUN/CREATININE RATIO 27.77; CALCIUM 9.3 mg/dL (8.2-10.2); CREATININE 0.72 mg/dL (0.60-1.30); POTASSIUM 4.4 mmol/L (3.5-5.10); TOTAL PROTEIN 5.9 g/dL (5.8-8.1)
[2017-02-13 05:22] LABS: ANISOCYTOSIS NOT PRESENT (NOT PRESENT)
[2017-02-13] MEDS: DUONEB NEB SCH ×4 (05:25→23:28)
[2017-02-13] MEDS: NEURONTIN PO SCH ×8 (08:54→20:38)
[2017-02-13] MEDS: MUCINEX PO SCH ×2 (08:54→20:37)
[2017-02-13] MEDS: VALIUM PO PRN ×2 (09:00→16:59)
[2017-02-13] MEDS: ROCEPHIN 1 GM in SODIUM CHLORIDE 50 ML IV SCH (09:02)
[2017-02-13] MEDS: SODIUM CHLORIDE 1,000 ML IV SCH ×2 (09:45→18:38)
[2017-02-13] MEDS: VANCOMYCIN 500 MG in SODIUM CHLORIDE 100 ML IV SCH ×2 (10:02→20:37)
[2017-02-13] MEDS: ZITHROMAX 500 MG in SODIUM CHLORIDE 250 ML IV SCH (11:34)
[2017-02-13] MEDS: VARENICLINE TARTRATE 1 MG PO SCH ×2 (11:54→20:38)
[2017-02-13] MEDS: DESYREL PO SCH (20:38)
[2017-02-13] MEDS ORDERED: PROAIR HFA IH PRN (21:24)
[2017-02-14] MEDS: SOLU-MEDROL 40 MG IVP SCH (04:10)
[2017-02-14 05:05] LABS: HEMATOCRIT 38.8 % (37.0-47.0); HEMOGLOBIN 12.5 g/dl (12.0-16.0); MEAN CORPUSCULAR HEMOGLOBIN 29.9 pg (27.0-31.0); MEAN CORPUSCULAR HGB CONC 32.2 (31.8-35.4); MEAN CORPUSCULAR VOLUME 92.8 fl (81.0-99.0); PLATELET COUNT 356 10^3/uL (140-440); RED BLOOD COUNT 4.18 10^6/ul (4.20-5.40)
[2017-02-14 05:09] LABS: ANISOCYTOSIS NOT PRESENT (NOT PRESENT)
[2017-02-14] MEDS: DUONEB NEB SCH ×4 (05:13→23:27)
[2017-02-14 05:26] LABS: ALBUMIN 2.8 g/dL (3.4-5.0); ANION GAP 11.2; BILIRUBIN,TOTAL 0.21 mg/dL (0.00-1.20); BUN/CREATININE RATIO 27.53; CALCIUM 8.9 mg/dL (8.2-10.2); CREATININE 0.69 mg/dL (0.60-1.30); POTASSIUM 4.2 mmol/L (3.5-5.10); TOTAL PROTEIN 5.6 g/dL (5.8-8.1)
[2017-02-14] MEDS: OXYCODONE PO PRN ×3 (07:11→20:36)
[2017-02-14] MEDS: NEURONTIN PO SCH ×8 (08:04→20:30)
[2017-02-14] MEDS: VALIUM PO PRN ×2 (08:05→22:00)
[2017-02-14] MEDS: VARENICLINE TARTRATE 1 MG PO SCH ×2 (08:05→20:30)
[2017-02-14] MEDS: MUCINEX PO SCH ×2 (08:05→20:30)
[2017-02-14] MEDS: VANCOMYCIN 500 MG in SODIUM CHLORIDE 100 ML IV SCH ×2 (08:05→20:24)
[2017-02-14] MEDS: ROCEPHIN 1 GM in SODIUM CHLORIDE 50 ML IV SCH (09:31)
[2017-02-14] MEDS: MEDROL DOSEPAK PO SCH ×4 (09:31→20:26)
[2017-02-14] MEDS: ZITHROMAX 500 MG in SODIUM CHLORIDE 250 ML IV SCH (10:46)
[2017-02-14] MEDS: SODIUM CHLORIDE 1,000 ML IV SCH ×2 (10:47→23:48)
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
--- NOTE | 2017-02-14 13:37 | PN ---
DATE OF SERVICE: 02/12/17 SUBJECTIVE: The patient is admitted with community acquired pneumonia. She is still coughing , hacking, getting yellow-green phlegm. REVIEW OF SYSTEMS: CONSTITUTIONAL: No fever, no chills. HEENT: Normal. ENDOCRINE: No weight gain, no weight loss. CVS: No angina symptoms. No CHF symptoms. No palpitations. No atypical chest pain for CAD. No shortness of breath. No PND, no orthopnea. RESPIRATORY: Cough. No hemoptysis. GI: No nausea, no vomiting. No abdominal pain. : No hematuria. No polyuria. MUSCULOSKELETAL:. No joint swelling. PSYCHIATRIC: Not anxious. No depression. No suicidal thoughts. No homicidal thoughts. SKIN: Intact. No rash. PHYSICAL EXAMINATION: V/S: BP 140/85, respiratory rate 17, heart rate 107, saturation on room air is 89; on 2L is 95. GENERAL: Cachetic lady lying in bed not in any distress. HEENT: Normocephalic, atraumatic. Pallor positive. No icterus. NECK: Supple. No JVD, no carotid bruit. No lymphadenopathy. LUNGS: Decreased basilar crackles, expiratory wheezing is present and rhonchi all over. HEART: S1, S2 normal. No S3. No murmur, gallop or regurgitation. ABDOMEN: Soft, nontender. Bowel sounds active. No rigidity. No rebound or guarding. No CVA tenderness. EXTREMITIES: No clubbing, cyanosis or pedal edema. MUSCULOSKELETAL: No joint swelling. NEUROLOGIC: Awake, alert, oriented times three. No focal deficit. LYMPHATIC: No lymph nodes palpable. SKIN: Intact. LABS: White count 25.89, hemoglobin 12.8, hematocrit 39.7, platelet count 335. Sodium is 141, potassium 4.5, chloride 109, bicarb 25, BUN 19, creatinine 0.64, glucose 144. ASSESSMENT: 1. COPD EXACERBATION SECONDARY TO COMMUNITY ACQUIRED PNEUMONIA 2. HYPOXEMIA SECONDARY TO SAME 3. LEUKOCYTOSIS SECONDARY TO PNEUMONIA HISTORY OF: 4. HYPERTENSION 5. DYSLIPIDEMIA 6. DJD SPINE 7. CHRONIC PAIN SYNDROME 8. NICOTINE USE PLAN: 1. Continue Rocephin 2. IV fluids 3. Duonebs 4. Continue home medications 5. Daily I & O's 6. Will follow the patient in daily rounds TIME SPENT: More than 30 minutes MTDD
--- NOTE | 2017-02-14 13:58 | PN ---
DATE OF SERVICE: 02/13/17 SUBJECTIVE: The patient was admitted with pneumonia. White count is elevated to 33,000 today with monocytes and active lymphocytes are present. The patient has cough and is congested getting up lots of yellow-green phlegm. REVIEW OF SYSTEMS: CONSTITUTIONAL: No fever, no chills. HEENT: Normal. ENDOCRINE: No weight gain, no weight loss. CVS: No angina symptoms. No CHF symptoms. No palpitations. No atypical chest pain for CAD. No shortness of breath. No PND, no orthopnea. RESPIRATORY: Cough and congestion. No hemoptysis. GI: No nausea, no vomiting. No abdominal pain. : No hematuria. No polyuria. MUSCULOSKELETAL:. No joint swelling. PSYCHIATRIC: Not anxious. No depression. No suicidal thoughts. No homicidal thoughts. SKIN: Intact. No rash. PHYSICAL EXAMINATION: V/S: BP 144/80, respiratory rate 12, heart rate 82, saturation 2L on room air is 92. Temperature 97.3. GENERAL: Cachetic lady lying in bed. HEENT: Normocephalic, atraumatic. Mucosa dry. Pallor positive. No icterus. NECK: Supple. No JVD, no carotid bruit. No lymphadenopathy. LUNGS: Decreased with crackles and rhonchi all over. HEART: S1, S2 normal. No S3. No murmur, gallop or regurgitation. ABDOMEN: Soft, nontender. Bowel sounds active. No rigidity. No rebound or guarding. No CVA tenderness. EXTREMITIES: No clubbing, cyanosis or pedal edema. MUSCULOSKELETAL: No joint swelling. NEUROLOGIC: Awake, alert, oriented times three. No focal deficit. LYMPHATIC: No lymph nodes palpable. SKIN: Intact. LABS: White count 33.46, hemoglobin 12.7, hematocrit 40.0, platelet count 378. Sodium 141, potassium 4.4, chloride 106, bicarb 27, BUN 20, creatinine 0.72, glucose 149. ASSESSMENT: 1. COMMUNITY ACQUIRED PNEUMONIA, BILATERAL BASILAR 2. COPD EXACERBATION SECONDARY TO COMMUNITY ACQUIRED PNEUMONIA 3. LEUKOCYTOSIS SECONDARY TO PNEUMONIA 4. HISTORY OF CORONARY ARTERY DISEASE 5. COPD 6. NICOTINE USE 7. DEPRESSION 8. DJD SPINE 9. OSTEOARTHRITIS PLAN: 1. Will add Vancomycin 1 gm daily as chest x-ray showed right upper lobe pneumonia. 2. Azithromycin. 3. Continue Rocephin 4. Duonebs 5. Solu-Medrol 40 q.8hr 6. Daily I & O's TIME SPENT ON PATIENT: More than 35 minutes today TIME SPENT: More than 30 minutes MTDD
--- NOTE | 2017-02-14 16:35 | CT ---
EXAM: CT of the chest without contrast History: Cough, elevated white blood cell count. Comparison: Chest radiograph 02/12/2017, chest CT 02/11/2017 Technique: Multiplanar CT images through the thorax were obtained without the administration of IV c ontrast Findings: Heart size is within normal limits. Coronary calcifications. Great vessels are grossly u nremarkable on this noncontrast study. No pathologically enlarged thoracic lymph nodes. Fluid is se en within the esophagus suggesting reflux. The bibasilar lung infiltrates have improved compared to the prior chest CT. No significant interval change in the right upper lobe scarring or linear atelectasis. Emphysema again noted. No pleural f luid and no pneumothorax. Within the visualized upper abdomen, status post cholecystectomy. Right renal calculi again identifi ed. Small hemorrhagic cyst again seen within the right kidney. No change in the small left renal cy st. Stool is seen distending the visualized portions of the colon. Visualized osseous structures un changed with no acute osseous abnormalities identified. Impression: 1. Improving bibasilar pneumonia. 2. No significant interval change in the right upper lobe subsegmental atelectasis or scarring. 3. Emphysema. 4. Coronary artery disease. 5. Fluid within the esophagus suggesting reflux.
[2017-02-14] MEDS: DESYREL PO SCH (20:25)
[2017-02-14] MEDS: MYRBETRIQ PO SCH (20:29)
[2017-02-14] MEDS ORDERED: NON-FORMULARY MEDICATION (Mirabegron [Myrbetriq] 50 MG) PO SCH (21:00)
[2017-02-15] MEDS: DUONEB NEB SCH ×4 (05:07→22:36)
[2017-02-15] MEDS: MEDROL DOSEPAK PO SCH ×4 (05:56→21:10)
[2017-02-15] MEDS: VALIUM PO PRN ×3 (07:45→21:32)
[2017-02-15] MEDS: OXYCODONE PO PRN ×3 (07:54→21:32)
[2017-02-15] MEDS: NEURONTIN PO SCH ×8 (08:24→21:11)
[2017-02-15] MEDS: MUCINEX PO SCH ×2 (08:24→21:11)
[2017-02-15] MEDS: ROCEPHIN 1 GM in SODIUM CHLORIDE 50 ML IV SCH (08:25)
[2017-02-15] MEDS: VARENICLINE TARTRATE 1 MG PO SCH ×2 (08:25→21:10)
[2017-02-15 09:16] LABS: HEMATOCRIT 41.8 % (37.0-47.0); HEMOGLOBIN 13.6 g/dl (12.0-16.0); MEAN CORPUSCULAR HEMOGLOBIN 30.2 pg (27.0-31.0); MEAN CORPUSCULAR HGB CONC 32.5 (31.8-35.4); MEAN CORPUSCULAR VOLUME 92.9 fl (81.0-99.0); PLATELET COUNT 367 10^3/uL (140-440); WHITE BLOOD COUNT 38.52 K/ul (4.6-10.2)
[2017-02-15] MEDS: ZITHROMAX 500 MG in SODIUM CHLORIDE 250 ML IV SCH (09:36)
[2017-02-15 09:57] LABS: ALBUMIN 3.3 g/dL (3.4-5.0); ANION GAP 14.6; BILIRUBIN,TOTAL 0.23 mg/dL (0.00-1.20); BUN/CREATININE RATIO 21.42; CALCIUM 9.5 mg/dL (8.2-10.2); CREATININE 0.7 mg/dL (0.60-1.30); POTASSIUM 3.6 mmol/L (3.5-5.10); TOTAL PROTEIN 6.6 g/dL (5.8-8.1)
[2017-02-15 10:11] LABS: ANISOCYTOSIS NOT PRESENT (NOT PRESENT)
[2017-02-15] MEDS ORDERED: VANCOMYCIN 750 MG in SODIUM CHLORIDE 250 ML IV SCH (10:30)
[2017-02-15] MEDS: VANCOMYCIN 500 MG in SODIUM CHLORIDE 100 ML IV SCH (10:34)
[2017-02-15] MEDS: VANCOMYCIN 750 MG in SODIUM CHLORIDE 250 ML IV SCH ×2 (11:18→21:11)
[2017-02-15] MEDS: ZESTRIL PO SCH (11:18)
[2017-02-15] MEDS: MYRBETRIQ PO SCH (21:11)
[2017-02-15] MEDS: DESYREL PO SCH (21:11)
[2017-02-16 04:47] LABS: HEMATOCRIT 38.9 % (37.0-47.0); HEMOGLOBIN 12.3 g/dl (12.0-16.0); MEAN CORPUSCULAR HEMOGLOBIN 29.2 pg (27.0-31.0); MEAN CORPUSCULAR HGB CONC 31.6 (31.8-35.4); MEAN CORPUSCULAR VOLUME 92.4 fl (81.0-99.0); PLATELET COUNT 339 10^3/uL (140-440); RED BLOOD COUNT 4.21 10^6/ul (4.20-5.40); WHITE BLOOD COUNT 30.59 K/ul (4.6-10.2)
[2017-02-16 04:50] LABS: ANISOCYTOSIS NOT PRESENT (NOT PRESENT)
[2017-02-16] MEDS: OXYCODONE PO PRN ×2 (04:58→11:58)
[2017-02-16] MEDS: DUONEB NEB SCH ×2 (05:01→11:16)
[2017-02-16 05:08] LABS: ALBUMIN 2.8 g/dL (3.4-5.0); ALBUMIN/GLOBULIN RATIO 1.08; ANION GAP 14.3; BILIRUBIN,TOTAL 0.18 mg/dL (0.00-1.20); BUN/CREATININE RATIO 24.63; CREATININE 0.69 mg/dL (0.60-1.30); POTASSIUM 4.3 mmol/L (3.5-5.10); TOTAL PROTEIN 5.4 g/dL (5.8-8.1)
[2017-02-16] MEDS: MEDROL DOSEPAK PO SCH ×3 (05:32→17:40)
[2017-02-16] MEDS: ROCEPHIN 1 GM in SODIUM CHLORIDE 50 ML IV SCH (08:50)
[2017-02-16] MEDS: MUCINEX PO SCH (08:51)
[2017-02-16] MEDS: NEURONTIN PO SCH ×6 (08:51→17:40)
[2017-02-16] MEDS: VARENICLINE TARTRATE 1 MG PO SCH (08:51)
[2017-02-16] MEDS: ZESTRIL PO SCH (09:00)
[2017-02-16] MEDS: VANCOMYCIN 750 MG in SODIUM CHLORIDE 250 ML IV SCH (10:50)
[2017-02-16] MEDS: VALIUM PO PRN (11:57)
--- NOTE | 2017-02-16 14:23 | DI ---
EXAM: Two views of the chest. History: Cough, follow-up pneumonia Comparison: Chest radiograph 02/12/2017, chest CT 02/14/2017 Findings: Heart size is within normal limits. Emphysema again noted. No change in the area of scar ring or atelectasis within the right upper lung. No developing opacities. No appreciable pleural fl uid and no pneumothorax. Visualized osseous structures unchanged. Impression: No significant interval change in the atelectasis or scarring in the right upper lung. No developing opacities.
--- NOTE | 2017-02-16 14:29 | PN ---
DATE OF SERVICE: 02/15/17 SUBJECTIVE: The patient was admitted with the bilateral basilar pneumonia. The patient has been more active. Still getting some yellow/green phlegm otherwise feeling better. REVIEW OF SYSTEMS: CONSTITUTIONAL: No fever, no chills. HEENT: Normal. ENDOCRINE: No weight gain, no weight loss. CVS: No angina symptoms. No CHF symptoms. No palpitations. No atypical chest pain for CAD. No shortness of breath. No PND, no orthopnea. RESPIRATORY: No cough, no hemoptysis. GI: No nausea, no vomiting. No abdominal pain. : No hematuria. No polyuria. MUSCULOSKELETAL:. No joint swelling. PSYCHIATRIC: Not anxious. No depression. No suicidal thoughts. No homicidal thoughts. SKIN: Intact. No rash. PHYSICAL EXAMINATION: V/S: Blood pressure 146/85, respiratory rate 16, heart rate 73, temperature 97.1. HEENT: Normocephalic, atraumatic. NECK: Supple. No JVD, no carotid bruit. No lymphadenopathy. LUNGS: Decreased breath sounds with basilar crackles. No rales or rhonchi. HEART: S1, S2 normal. No S3. No murmur, gallop or regurgitation. ABDOMEN: Soft, nontender. Bowel sounds active. No rigidity. No rebound or guarding. No CVA tenderness. EXTREMITIES: No clubbing, cyanosis or pedal edema. MUSCULOSKELETAL: No joint swelling. NEUROLOGIC: Awake, alert, oriented times three. No focal deficit. LYMPHATIC: No lymph nodes palpable. SKIN: Intact. LABS: Sodium 142, potassium 3.6, chloride 103, bicarb 28, BUN 15, creatinine 0.70, WBC 38.52, hgb 13.6, hct 41.8, plt count 367. ASSESSMENT: 1. Community acquired pneumonia 2. COPD exacerbation secondary to the bronchitis 3. Hypoxemia secondary to the COPD 4. History of chronic pain syndrome 5. Osteoarthritis 6. DJD spine PLAN: 1. Continue the Rocephin TIME SPENT: More than 30 minutes MTDD
--- NOTE | 2017-02-16 14:34 | PN ---
DATE OF SERVICE: 02/14/17 SUBJECTIVE: The patient was admitted with bilateral pneumonia and later the x-ray showed the right upper lobe pneumonia. Been getting antibiotics and feeling some better. Still having cough and getting yellow/green phlegm. REVIEW OF SYSTEMS: CONSTITUTIONAL: No fever, no chills. HEENT: Normal. ENDOCRINE: No weight gain, no weight loss. CVS: No angina symptoms. No CHF symptoms. No palpitations. No atypical chest pain for CAD. No shortness of breath. No PND, no orthopnea. RESPIRATORY: No cough, no hemoptysis. GI: No nausea, no vomiting. No abdominal pain. : No hematuria. No polyuria. MUSCULOSKELETAL:. No joint swelling. PSYCHIATRIC: Not anxious. No depression. No suicidal thoughts. No homicidal thoughts. SKIN: Intact. No rash. PHYSICAL EXAMINATION: V/S: Blood pressure 163/84, respiratory rate 17, heart rate 79, temperature 98.0 , saturation is 96% on the room air. HEENT: Normocephalic, atraumatic. Mucosa dry. NECK: Supple. No JVD, no carotid bruit. No lymphadenopathy. LUNGS: Decreased with basilar crackles. No rales or rhonchi. HEART: S1, S2 normal. No S3. No murmur, gallop or regurgitation. ABDOMEN: Soft, nontender. Bowel sounds active. No rigidity. No rebound or guarding. No CVA tenderness. EXTREMITIES: No clubbing, cyanosis or pedal edema. MUSCULOSKELETAL: No joint swelling. NEUROLOGIC: Awake, alert, oriented times three. No focal deficit. LYMPHATIC: No lymph nodes palpable. SKIN: Intact. LABS: WBC 44,000, hgb 12.5, hct 38.8, plt count 356, sodium 139, potassium 4.2, chloride 106, bicarb 26, BUN 19, creatinine 0.69, glucose 159. ASSESSMENT: 1. Community acquired pneumonia 2. Leukocytosis most likely from the steroids 3. History of COPD 4. Hypertension 5. Dyslipidemia 6. Osteoarthritis 7. DJD spine 8. Chronic pain syndrome 9. Depression PLAN: 1. Continue the Rocephin 2. Will add Azithromycin and Vancomycin 3. Recheck the blood count in the morning 4. Decrease the Solu-Medrol 5. Start the patient on the Medrol Dosepak 6. Out of bed to chair activity as tolerated TIME SPENT: More than 35 minutes MTDD
[2017-02-16 15:37] VITALS: BP 136/82; TEMP 97.3
[2017-02-16] MEDS ORDERED: ZESTRIL PO STA (15:48)
--- NOTE | 2017-03-08 11:39 | DS ---
DATE OF SERVICE: 02/16/17 FINAL DIAGNOSIS: 1. COPD exacerbation secondary to the pneumonia 2. Leukocytosis secondary to the steroids 3. Hypoxemia secondary to the COPD exacerbation and pneumonia 4. Hypertension 5. Dyslipidemia 6. Osteoarthritis 7. DJD Spine 8. Chronic pain syndrome 9. Depression 10.Hyperglycemia from steroids 11.Cachexia 12.Nicotine use 13.History of lung cancer 14.Status post cholecystectomy 15.Appendectomy 16.Laminectomy, Lumbar DISCHARGE INSTRUCTIONS: Discharge the patient home. Followup with the [facility] within 5-7 days. MEDICATIONS AT DISCHARGE: Albuterol Keflex Valium Neurontin Hydrocodone Lisinopril Myrbetriq Trazodone Chantix NEW PRESCRIPTIONS: Keflex 500mg three times a day for 7 days Medrol Dosepak Mucinex 600mg PO twice a day Lisinopril 20mg PO daily DIET INSTRUCTIONS: Cardiac and healthy ACTIVITY: As much as tolerated SMOKING: Former smoker DISEASE SPECIFIC EDUCATION: Pneumonia Pneumonia vaccination Antibiotic use and diarrhea been discussed. HOSPITAL COURSE: Kellie Hartmann who is a 66 year old female with the multiple medical problems, oxygen dependency came to the emergency room with the cough, congestion and yellow/green phlegm. ABG done in the emergency room showed the acute respiratory failure with the pH 7.435, pCO2 41.5, pO2 56. CT of the chest was done in the emergency room which showed bibasilar pneumonia. At that time the patient was admitted to the hospital and started on the IV antibiotics and the breathing treatments. Solu-Medrol 40 Q 8 hour was given, Vancomycin and DUO NEBS were given. Rocephin was given and IV fluids. With the given treatment gradually the patient started responding and WBC 26,00 to begin with the the left shift, D-dimer was 727, BUN and creatinine was normal and did not change much. Urine did show leukocyte esterase positive and did not show any cultures. Vancomycin trough levels been monitored. The patient's recovery was slow. Repeat CAT scan of the chest was done as WBC kept increasing to make sure the patient is not having any abscess. Repeat CAT scan showed the improving bibasilar pneumonia and no significant change in the right upper lobe subsegmental scarring or atelectasis. WBC did go up to 33,000, 44,000 and was coming down to 38 and 30,000. Gradually the patient was getting up and about and walking and going out to smoke. Shortness of breath was getting better. Repeat chest x-ray done on the 02/16/17 which showed no significant change in the atelectasis in the right upper lung and no developing opacities. At that time the patient being discharged home and strictly advised not to smoke. TIME SPENT: MORE THAN 60 MINUTES MTDD
== END 2017-02-16 17:17 | disposition home or self-care (01) | DRG 193 ==
LOC: ED 15:44 → MEDSURG A 17:23
PROVIDERS: ADMIT Emergency Medicine; ATTEND Emergency Medicine
DX: J18.9 Pneumonia, unspecified organism (principal); J96.01 Acute respiratory failure with hypoxia; J44.1 Chronic obstructive pulmonary disease with (acute) exacerbation; R64 Cachexia; R06.02 Shortness of breath; D72.829 Elevated white blood cell count, unspecified; I10 Essential (primary) hypertension; I25.10 Atherosclerotic heart disease of native coronary artery without angina pectoris; E78.5 Hyperlipidemia, unspecified; M19.90 Unspecified osteoarthritis, unspecified site; M47.9 Spondylosis, unspecified; G89.4 Chronic pain syndrome; F32.9 Major depressive disorder, single episode, unspecified; R73.9 Hyperglycemia, unspecified; F17.200 Nicotine dependence, unspecified, uncomplicated; Z79.899 Other long term (current) drug therapy; Z85.118 Personal history of other malignant neoplasm of bronchus and lung
CPT/HCPCS: 36415; 80053; 80202; 81001; 82550; 82803; 83605; 83880; 84145; 84484; 85007; 85025; 85379; 87040; 87651; 87880; 93005; 93010; 94640; 96372; 99284

== ENCOUNTER 2017-02-23 15:26 | Emergency (ER) ==
[2017-02-23 15:35] VITALS: BP 103/71; TEMP 97.8; BMI 18.0
--- NOTE | 2017-02-23 15:47 | ED.PDOC ---
General ED Provider: Dr. BELEM WHITING Chief Complaint: Fall Stated Complaint: Tripped and fell on floor at [facility], injuring head, left wrist, left chest wall (anterior and posterior). Denies any low back, abd or lower extremity pain. Denies LOC. Recently discharged from hospital after treatment for pneumonia. Time Seen by Physician: 15:40 Mode of Arrival: Stretcher Information Source: Patient, EMT Primary Care Provider: [facility] Nursing and Triage Documentation Reviewed and Agree: Yes Musculoskeletal Complaint Exam - Hand/Wrist Complaint/Exam Location of Pain: Reports: Left, Wrist Mechanism of Injury: Reports: Trauma Onset/Duration: 1 hour ago Symptoms Are: Still present Onset of Pain: Reports: Immediate Initial Severity: Severe Current Severity: Moderate Location: Reports: Diffuse Character: Reports: Aching Alleviating: Reports: None Aggravating: Reports: Movement Dominant Hand: Right Tenderness: Present: Radius (distal), Ulna (distal), Carpal. Absent: Snuff box Compartment Syndrome Risk Factors: Present: Pain Differential Diagnoses: Closed Fracture, Sprain - Back Pain Complaint/Exam Mechanism of Injury: Reports: Trauma Onset/Duration: 1 hour ago Symptoms Are: Still present Timing: Constant Episodes Lasting: Minutes Initial Severity: Severe Current Severity: Moderate Location: Reports: Diffuse Character: Reports: Aching, Throbbing Aggravating: Reports: Movements Alleviating: Reports: None Cauda Equina Risk Factors: Reports: None Related Surgical History: Reports: None Focal Tenderness: No Paraspinal Muscle Tenderness: Yes Paraspinal Muscle Spasm: Yes Scoliosis: No Lordosis: No Kyphosis: No SLR Test: Right Negative, Left Negative Hip Motion Testing Pain: Right Negative, Left Negative Focal Weakness: Present: None Focal Sensory Loss: Present: None Gait: Present: Normal (back board with cervical immobilization), Unable Differential Diagnoses: Fracture, Sprain Review of Systems - Review Of Systems Constitutional: Reports: No symptoms (see remainder of record) Eyes: Reports: No symptoms Ears, Nose, Mouth, Throat: Reports: No symptoms Respiratory: Reports: Other (increased left chest wall pain with deep breath) Cardiac: Reports: No symptoms GI: Reports: No symptoms : Reports: No symptoms Musculoskeletal: Reports: Back pain (thoracic spine), Joint pain (left wrist) Skin: Reports: Other (minor abrasions left elbow, laceration of left forehead) Neurological: Reports: No symptoms All Other Systems: Reviewed and Negative Past Medical History - Past Medical History Previously Healthy: Yes Endocrine: Reports: None Cardiovascular: Reports: None Respiratory: Reports: COPD, Asthma Hematological: Reports: Anemia, Other (Von Willebrand's Dz) Gastrointestinal: Reports: Liver (Hepatitis C) Genitourinary: Reports: Kidney stones Neuro/Psych: Reports: Anxiety, Depression, Parkinson's Musculoskeletal: Reports: None, Other Cancer: Reports: Lung (CA right lung: October 15, 2014 appt with oncologist in [place]) Last Menstrual Period: menopause Other Pertinent Past Medical History: necrotizing fascitis right butt - Surgical History General Surgical History: Reports: , Cholecystectomy, Orthopedic (hip femur(x6), right knee, mandible surgery) - Family History Family History: Reports: Unknown - Social History Smoking Status: Former smoker Hx Substance Use: No Alcohol Screening: None Lives: Alone - Immunizations Tetanus Shot up to Date: Yes Influenza Vaccine within 12 Months: No Pneumococcal Vaccine up to Date: No Physical Exam - Physical Exam Appearance: Well-appearing, Well-nourished, Thin Ill-appearing: None Pain Distress: Mild Eyes: SAMEERA, EOMI, Conjunctiva clear ENT: Ears normal, Nose normal, Oropharynx normal Neck: Supple (paracervical muscle tender to palpation) Respiratory: Airway patent, Breath sounds clear, Breath sounds equal, Respirations nonlabored Cardiovascular: RRR, Pulses normal, No rub, No murmur GI/: Soft, Nontender, No masses, Bowel sounds normal, No Organomegaly Musculoskeletal: Normal strength, ROM intact (left wrist tender through out, increased pain with any atempt at ROM, no gross deformity, left anterior and posterior chest wall tenderness, no crepitance or gross abnormality), No edema, No calf tenderness Skin: Warm (3 cm laceration across left forehead, gapes slightly. Bleeding controlled.), Dry (minor abrasions on left posterior elbow), Normal color Psychiatric: Affect appropriate, Mood appropriate Interpretation - Radiology Interpretation Radiology Interpretation By: Radiologist Radiology Results: Positive Exam Interpreted: CT Scan Xray Comments: Head and C-spine: unremarkable, left ribs: min. displaced fxs 5,6 ,7 ribs Radiology Interpretation By: Radiologist Radiology Results: No acute changes Exam Interpreted: CT Scan, Other Xray Comments: Xray left wrist: arthritis; CT thoracic spine: arthritis Procedures - Laceration/Wound Repair left forehead Wound Description: Linear Wound Length (cm): 3 cm Wound Width: 0.5 cm Wound Depth: shallow Wound Explored: Clean Wound Irrigated: No Wound Prep: Hibiclens, Scrub Anesthesia: Lidocaine Wound Repaired With: Sutures Suture Size and Type: 4-0 ethilon Number of Sutures: 5 (all SIS) Layer Closure?: No Sterile Dressing Applied?: Yes Splint Applied?: No Sling Applied?: No Critical Care Note - Critical Care Note Total Time (mins): 0 Course - Course Orders, Labs, Meds: Orders Category Date Time Status Splint [ED SPLINT APPLICATION] .ONCE EMERGENCY 02/23/17 18:22 Active Lidocaine HCl/Pf [Lidocaine HCl 1% Sdv] MEDS 02/23/17 17:57 Discontinued 5 ml .ROUTE .STK-MED ONE CT CERVICAL SPINE W/O CONTRAST Stat RADS 02/23/17 15:[address] HEAD W/O CONTRAST Stat RADS 02/23/17 15:[address] THORACIC SPINE W/O CONTRAST Stat RADS 02/23/17 15:58 Completed RIBS, W/PA CHEST LEFT Stat RADS 02/23/17 15:52 Completed WRIST, LEFT 3 VIEWS Stat RADS 02/23/17 15:51 Completed Vital Signs: Temp Pulse Resp BP Pulse Ox 02/23/17 15:27 97.8 F 112 H 20 103/71 93 L Departure - Departure Time of Disposition: 18:42 (Patient reveals she no longer has any pain Rx at home because was taken by a drug-addicted relative when she was in the hospital for pneumonia) Disposition: HOME SELF-CARE Discharge Problem: Multiple contusions Laceration of forehead without complication Qualifiers: Encounter type: initial encounter Qualified Code(s): S01.81XA - Laceration without foreign body of other part of head, initial encounter Closed head injury Qualifiers: Encounter type: initial encounter Qualified Code(s): S09.90XA - Unspecified injury of head, initial encounter Left wrist sprain Qualifiers: Encounter type: initial encounter Qualified Code(s): S63.502A - Unspecified sprain of left wrist, initial encounter Multiple rib fractures Qualifiers: Encounter type: initial encounter Fracture type: closed Laterality: left Qualified Code(s): S22.42XA - Multiple fractures of ribs, left side, initial encounter for closed fracture Instructions: Rib Fracture (ED), Concussion (ED), Contusion in Adults (ED), Wrist Sprain (ED), Facial Laceration (ED) Condition: Good Pt referred to PMD for follow-up: Yes (5 days for suture removal. see if no better in 1 week.) Additional Instructions: Change dressing on laceration 3 times a day: topical antibiotic ointment and nonstick dressing, such as oversized bandaid. Follow up with your primary care provider as soon as possible Stay in the splint until you see your primary care provider Allergies/Adverse Reactions: Allergies ketorolac tromethamine [From Toradol] Adverse Reaction (Mild, Verified 02/23/17 15:38) acetaminophen [From Fioricet] Adverse Reaction (Verified 02/23/17 15:38) butalbital [From Fioricet] Adverse Reaction (Verified 02/23/17 15:38) caffeine [From Fioricet] Adverse Reaction (Verified 02/23/17 15:38) morphine Adverse Reaction (Verified 02/23/17 15:38) nalbuphine HCl [From Nubain] Adverse Reaction (Verified 02/23/17 15:38) ondansetron HCl [From Zofran (as hydrochloride)] Adverse Reaction (Verified 15:38) pentazocine lactate [From Talwin] Adverse Reaction (Verified 02/23/17 15:38) propoxyphene napsylate [From Darvocet-N 100] Adverse Reaction (Verified 15:38) Home Medications: Ambulatory Orders Diazepam [Valium] 5 mg PO QID PRN 09/25/14 Gabapentin [Neurontin] 800 mg PO QID 09/25/14 Varenicline Tartrate [Chantix] 1 mg PO BID 02/13/17 Mirabegron [Myrbetriq] 50 mg PO BEDTIME 02/14/17 Cephalexin [Keflex] 500 mg PO TID #21 capsule 02/16/17 Hydrocodone/Acetaminophen [Euless 5-325 Tablet] 1 each PO Q4H PRN #30 tablet Disposition Discussed With: Patient, Family Trauma/Injury Complaint Exam - Facial Injury Complaint/Exam Location of Pain: Reports: Left, Forehead Mechanism of Injury: Reports: Trauma Onset/Duration: 3 hours Symptoms Are: Still present Onset of Pain: Reports: Immediate Initial Severity: Mild Current Severity: Mild Location: Reports: Discrete Character: Reports: Aching Alleviating: Reports: None Aggravating: Reports: None Associated Signs and Symptoms: Denies: Visual defects, Loss of consciousness Related Surgical History: Reports: None Facial Findings: Present: Laceration (across left forehead, slihgtly gaping) Differential Diagnoses: Laceration
--- NOTE | 2017-02-23 16:27 | DI ---
EXAM: Left wrist three-view HISTORY: Fall COMPARISON: 05/14/2015 FINDINGS: No acute fracture or dislocation identified. There is a chronic fracture deformity of the distal radius with remodeling. Osteoarthritis about the wrist with moderate osteoarthritis of the r adiocarpal articulations and severe osteoarthritis first CMC joint. IMPERSSION: 1. No acute fracture or dislocation identified. 2. Chronic fracture deformity distal radius with remodeling. 3. Osteoarthritis, severe at the first CMC joint.
--- NOTE | 2017-02-23 16:31 | CT ---
EXAM: CT of the cervical spine without contrast History: Cervical spine trauma. Comparison: CT cervical spine 12/16/2012 Technique: Multiplanar CT images through the cervical spine were obtained without the administration of IV contrast Findings: Emphysema seen within the upper lungs. The visualized airway remains patent. No acute fracture or subluxation of the cervical spine. No prevertebral soft tissue swelling. Mild to moderate degenerative disc disease at C4-5. The bony spinal canal is not compromised. Multilevel bilateral bony neural foraminal narrowing secondary to uncovertebral and facet hypertrophy. Impression: No acute osseous abnormality of the cervical spine.
--- NOTE | 2017-02-23 16:31 | CT ---
EXAM: CT head without contrast. HISTORY: Initial presentation for head trauma. COMPARISON: None available. TECHNIQUE: Multiple axial images of the brain were obtained from the skull base through the vertex w ithout intravenous contrast. FINDINGS: There is no intracranial hemorrhage or extraaxial collection. The rosa-white differentiat ion is maintained without evidence for acute large vascular territory infarction. The cortical sulci and basal cisterns are well visualized. There is no hydrocephalus, mass effect, or midline shift. Mucous noted in the left sphenoid sinus. Otherwise, the paranasal sinuses and mastoid air cells are clear. The calvarium is intact. Since the prior study, there has been no significant interval nunez e. IMPRESSION: 1. No acute intracranial abnormality. 2. Chronic small vessel ischemic changes and atrophy.
--- NOTE | 2017-02-23 16:42 | CT ---
EXAM: CT thoracic spine without contrast. HISTORY: Fall COMPARISON: 06/11/2016 TECHNIQUE: CT thoracic spine performed without intravenous contrast. Coronal and sagittal reformatt ed images obtained. FINDINGS: There is a minimal compression deformity T3, minimal compression deformity T6, mild compre ssion deformity 87 and mild to moderate compression deformity L1, all appear unchanged from CT chest 02/14/2017. No new compression fractures identified. No subluxation. Mild to moderate chronic disc ogenic degenerative disease with multilevel intervertebral space narrowing and marginal osteophyte fo rmation. Bones appear demineralized. There is mild centrilobular emphysema. Improving bibasilar in filtrates. Probable right upper lung fibrosis, unchanged. Coronary calcifications. Renal cysts and additional bilateral small probable hyperdense bilateral renal cysts. IMPRESSION: 1. No acute fracture or subluxation. 2. Chronic compression deformities as described 3. Chronic discogenic degenerative disease. 4. Bones appear demineralized. 5. Improving mild bibasilar pneumonia. 6. Emphysema.
[2017-02-23] MEDS ORDERED: LIDOCAINE HCL 1% SDV ONE (17:57)
--- NOTE | 2017-02-23 18:35 | DI ---
EXAM: Single view chest. Four views of the left ribs. HISTORY: Fall COMPARISON: 02/16/2017. FINDINGS: The heart is normal in size. Pulmonary vascularity is within normal limits. No focal airsp mireille opacity or pleural effusion is seen. Right upper lobe linear densities are not significantly reaves ged. The lungs appear hyperexpanded. Minimally-displaced fractures of the lateral left fifth, sixth, and seventh ribs are present. IMPRESSION: No acute cardiopulmonary findings. Minimally-displaced left lateral fifth, sixth, and seventh rib fractures. Similar right upper lung scarring densities/atelectasis. Lung hyperexpansion suggesting possible chr onic obstructive pulmonary disease.
== END 2017-02-23 18:55 | disposition home or self-care (01) ==
LOC: ED 15:26
DX: S01.81XA Laceration without foreign body of other part of head, initial encounter (principal); S09.90XA Unspecified injury of head, initial encounter; S63.502A Unspecified sprain of left wrist, initial encounter; S22.42XA Multiple fractures of ribs, left side, initial encounter for closed fracture; M54.6 Pain in thoracic spine; S50.312A Abrasion of left elbow, initial encounter; T07 Unspecified multiple injuries; W01.0XXA Fall on same level from slipping, tripping and stumbling without subsequent striking against object, initial encounter; Y92.512 Supermarket, store or market as the place of occurrence of the external cause
CPT/HCPCS: 99283

== ENCOUNTER 2017-05-31 14:59 | Inpatient (IN) ==
[2017-05-31] MEDS ORDERED: TYLENOL PO PRN (15:13)
--- NOTE | 2017-05-31 16:11 | CT ---
EXAM: CT chest without contrast HISTORY: Cough and shortness of breath COMPARISON: CT chest 02/14/2017 and 02/11/2017 TECHNIQUE: Serial axial images of the chest were obtained from the lung apices to the upper abdomen without contrast. These were viewed in multiple planes. FINDINGS: The thyroid is normal. The visualized vessels demonstrate mild atherosclerotic disease of the aorta. Pulmonary arteries are unremarkable. There is mild coronary artery disease. The heart is normal with trace pericardial fluid. There are no mediastinal or hilar lymph nodes present. There is no pneumothorax or pleural effusion. There is mild emphysematous disease. Right upper lobe area of bronchiectasis and minimal associated consolidation / airway thickening is unchanged on the coronal view. Linear atelectasis is noted. Bilateral lung bases. There is mucus plugging in the ri ght lower lobe. No new consolidation or mass is identified. The soft tissues in the upper abdomen demonstrate prior cholecystectomy. Dense lesions of the right kidney are unchanged. The osseous structures demonstrate no significant change in superior endplate compression deformity at L1, T7 and T6. There is new mild scattered some irregular sclerosis of the sternum with no definitive fracture identified. IMPRESSION: 1. Mucus plugging in the right lower lobe. 2. Unchanged focal area of scarring with bronchiectasis and consolidation / airway thickening in the right upper lobe. 3. Mild stable emphysema. 4. No change in appearance of soft tissues in the upper abdomen. 5. Degenerative disease throughout the spine with new area of irregular sclerosis in the sternum wit h no definitive fracture identified.
[2017-05-31 16:35] VITALS: BMI 18.7
[2017-05-31] MEDS: DUONEB NEB SCH ×2 (16:48→23:58)
[2017-05-31] MEDS ORDERED: NON-FORMULARY MEDICATION (Gabapentin [Neurontin] 800 MG) PO SCH (17:00)
[2017-05-31] MEDS: SODIUM CHLORIDE 1,000 ML IV SCH (17:35)
[2017-05-31] MEDS: NEURONTIN PO SCH ×4 (18:08→20:34)
[2017-05-31] MEDS: VALIUM PO PRN (18:09)
[2017-05-31] MEDS: PERCOCET 10-325 PO SCH ×2 (18:09→22:52)
[2017-05-31] MEDS: SOLU-MEDROL 125 MG IVP SCH ×2 (18:09→22:50)
[2017-05-31] MEDS: MYRBETRIQ PO SCH (20:34)
[2017-05-31] MEDS: DESYREL PO SCH (20:34)
[2017-05-31] MEDS ORDERED: NON-FORMULARY MEDICATION (Trazodone Hcl [Trazodone Hcl] 150 MG) PO SCH (21:00)
[2017-05-31] MEDS ORDERED: NON-FORMULARY MEDICATION (Mirabegron [Myrbetriq] 50 MG) PO SCH (21:00)
[2017-06-01] MEDS: SODIUM CHLORIDE 1,000 ML IV SCH ×3 (03:23→20:39)
[2017-06-01] MEDS: DUONEB NEB SCH ×3 (04:17→14:12)
[2017-06-01] MEDS: NEURONTIN PO SCH ×8 (09:15→20:41)
[2017-06-01] MEDS: LOVENOX SUBCUT SCH (09:16)
[2017-06-01] MEDS: ZITHROMAX PO SCH (09:16)
[2017-06-01] MEDS: PERCOCET 10-325 PO SCH ×4 (09:16→20:41)
[2017-06-01] MEDS: SOLU-MEDROL 125 MG IVP SCH ×2 (10:37→20:40)
[2017-06-01] MEDS: ROCEPHIN 1 GM in SODIUM CHLORIDE 50 ML IV SCH (10:38)
[2017-06-01] MEDS: VALIUM PO PRN (10:38)
[2017-06-01] MEDS: MYRBETRIQ PO SCH (20:40)
[2017-06-01] MEDS: DESYREL PO SCH ×2 (20:41→21:31)
[2017-06-02] MEDS: VALIUM PO PRN ×3 (00:13→21:52)
[2017-06-02] MEDS: DUONEB NEB SCH ×5 (04:26→20:10)
[2017-06-02] MEDS: LOVENOX SUBCUT SCH (09:09)
[2017-06-02] MEDS: NEURONTIN PO SCH ×8 (09:10→21:52)
[2017-06-02] MEDS: ROCEPHIN 1 GM in SODIUM CHLORIDE 50 ML IV SCH (09:11)
[2017-06-02] MEDS: ZITHROMAX PO SCH (09:11)
[2017-06-02] MEDS: PERCOCET 10-325 PO SCH ×4 (09:11→17:50)
[2017-06-02] MEDS: SOLU-MEDROL 125 MG IVP SCH ×2 (09:13→21:51)
[2017-06-02] MEDS: SODIUM CHLORIDE 1,000 ML IV SCH (13:30)
[2017-06-02] MEDS ORDERED: DEMEROL 50 MG/ML VIAL IVP STA (19:13)
[2017-06-02] MEDS ORDERED: LASIX IVP STA (19:15)
[2017-06-02] MEDS ORDERED: SODIUM CHLORIDE 500 ML IV SCH (19:30)
[2017-06-02] MEDS ORDERED: SODIUM CHLORIDE 1,000 ML IV SCH (20:00)
[2017-06-02] MEDS: DESYREL PO SCH (21:51)
[2017-06-02] MEDS: MYRBETRIQ PO SCH (21:52)
[2017-06-03] MEDS: PERCOCET 10-325 PO SCH ×4 (01:25→18:04)
[2017-06-03] MEDS: SOLU-MEDROL 125 MG IVP SCH ×3 (01:35→22:00)
[2017-06-03] MEDS: DUONEB NEB SCH ×4 (05:49→20:01)
--- NOTE | 2017-06-03 09:36 | DI ---
EXAMINATION: AP portable chest radiograph. HISTORY: Chronic obstructive pulmonary disease FINDINGS: Chronic opacity in the right upper lobe is unchanged since 02/23/2017. The lungs are clear . The aorta is normal in caliber. The heart size is normal. The bones are intact. No pneumothorax or pleural effusions are detected. IMPRESSION: No acute cardiopulmonary disease. Fibrosis in the right upper lobe.
[2017-06-03] MEDS: NEURONTIN PO SCH ×8 (09:40→21:59)
[2017-06-03] MEDS: LOVENOX SUBCUT SCH (09:41)
[2017-06-03] MEDS: ZITHROMAX PO SCH (09:41)
[2017-06-03] MEDS: VALIUM PO PRN ×2 (10:20→18:04)
[2017-06-03] MEDS: ROCEPHIN 1 GM in SODIUM CHLORIDE 50 ML IV SCH (14:46)
[2017-06-03] MEDS: MYRBETRIQ PO SCH (21:59)
[2017-06-03] MEDS: DESYREL PO SCH (21:59)
[2017-06-04] MEDS: PERCOCET 10-325 PO SCH ×4 (00:33→18:25)
[2017-06-04] MEDS: DUONEB NEB SCH ×4 (04:54→23:16)
[2017-06-04] MEDS: NEURONTIN PO SCH ×8 (10:10→21:54)
[2017-06-04] MEDS: SOLU-MEDROL 125 MG IVP SCH ×2 (10:10→21:40)
[2017-06-04] MEDS: ROCEPHIN 1 GM in SODIUM CHLORIDE 50 ML IV SCH (10:10)
[2017-06-04] MEDS: LOVENOX SUBCUT SCH (10:11)
--- NOTE | 2017-06-04 14:57 | PN ---
DATE OF SERVICE: 06/01/17 SUBJECTIVE: The patient admitted with COPD exacerbation, pneumonia, dehydration and hypoxemic respiratory failure. The patient is getting breathing treatments, still coughing and congested. She wants to go out to smoke, offered nicotine patch and refused at this time. REVIEW OF SYSTEMS: CONSTITUTIONAL: No fever, no chills. HEENT: Normal. ENDOCRINE: No weight gain, no weight loss. CVS: No angina symptoms. No CHF symptoms. No palpitations. No atypical chest pain for CAD. No shortness of breath. No PND, no orthopnea. RESPIRATORY: Cough and congestion. No hemoptysis. GI: No nausea, no vomiting. No abdominal pain. : No hematuria. No polyuria. MUSCULOSKELETAL: No joint swelling. PSYCHIATRIC: Not anxious. No depression. No suicidal thoughts. No homicidal thoughts. SKIN: Intact. No rash. PHYSICAL EXAMINATION: V/S: BP 150/85, respiratory rate 24, heart rate 114, temperature 99.4, saturation 94. HEENT: Normocephalic, atraumatic. Mucosa dry. Pallor positive. NECK: Supple. No JVD, no carotid bruit. No lymphadenopathy. LUNGS: Decreased entry with basilar crackles, mild expiratory wheeze. No rales or rhonchi. HEART: S1, S2 normal. No S3. No murmur, gallop or regurgitation. ABDOMEN: Soft, nontender. Bowel sounds active. No rigidity. No rebound or guarding. No CVA tenderness. EXTREMITIES: No clubbing, cyanosis or pedal edema. MUSCULOSKELETAL: No joint swelling. NEUROLOGIC: Awake, alert, oriented times three. No focal deficit. LYMPHATIC: No lymph nodes palpable. SKIN: Intact. LABS: White count 9.69, hemoglobin 13.7, hematocrit 43.1, platelet count 207. Sodium 140, potassium 4.3, chloride 110, bicarb 27, BUN 12, creatinine 0.67, glucose 161. ASSESSMENT: 1. COPD EXACERBATION SECONDARY TO BRONCHITIS 2. DEHYDRATION 3. ACUTE GASTROENTERITIS WHICH IS BETTER TODAY 4. HYPERTENSION 5. COPD 6. LUNG CANCER DIAGNOSED IN 2013 7. OSTEOARTHRITIS 8. DJD SPINE 9. DEPRESSION PLAN: 1. Continue Azithromycin, Rocephin 2. Lovenox for DVT prophylaxis 3. Duonebs 4. Solu-Medrol 80 q.12hr 5. Daily I & O's TIME SPENT: More than 35 minutes MTDD
--- NOTE | 2017-06-04 15:05 | PN ---
DATE OF SERVICE: 06/02/17 SUBJECTIVE: The patient was admitted with COPD exacerbation and pneumonia. She complains of more shortness of breath today. She is still coughing with congestion. Complains of right hip pain today. REVIEW OF SYSTEMS: CONSTITUTIONAL: No fever, no chills. HEENT: Normal. ENDOCRINE: No weight gain, no weight loss. CVS: No angina symptoms. No CHF symptoms. No palpitations. No atypical chest pain for CAD. More shortness of breath. No PND, no orthopnea. RESPIRATORY: Cough and congestion. No hemoptysis. GI: No nausea, no vomiting. No abdominal pain. : No hematuria. No polyuria. MUSCULOSKELETAL: No joint swelling. PSYCHIATRIC: Not anxious. No depression. No suicidal thoughts. No homicidal thoughts. SKIN: Intact. No rash. PHYSICAL EXAMINATION: V/S: BP 151/85, respiratory rate 20, heart rate 83, temperature 97.8, saturation 95 on 2L. HEENT: Normocephalic, atraumatic. Mucosa dry. Pallor positive. NECK: Supple. No JVD, no carotid bruit. No lymphadenopathy. LUNGS: Decreased entry with basilar crackles right more than left. No rales or rhonchi. HEART: S1, S2 normal. No S3. No murmur, gallop or regurgitation. ABDOMEN: Soft, nontender. Bowel sounds active. No rigidity. No rebound or guarding. No CVA tenderness. EXTREMITIES: 1+ edema. No clubbing or cyanosis. MUSCULOSKELETAL: No joint swelling. NEUROLOGIC: Awake, alert, oriented times three. No focal deficit. LYMPHATIC: No lymph nodes palpable. SKIN: Intact. LABS: White count 53,000, hemoglobin 12.1, hematocrit 38.9, platelet count 129. Sodium 141, potassium 3.9, chloride 111, bicarb 26, BUN 15, creatinine 0.63, glucose 201. ASSESSMENT: 1. COPD EXACERBATION AND PNEUMONIA 2. SEVERE LEUKOCYTOSIS MOST LIKELY WITH STEROIDS BUT WE WILL RECHECK ONE IN THE MORNING 3. HISTORY OF HYPERTENSION 4. CORONARY ARTERY DISEASE 5. HISTORY OF LUNG CANCER 6. CHRONIC KIDNEY DISEASE 7. DJD SPINE 8. OSTEOARTHRITIS 9. DEPRESSION PLAN: 1. CBC, CMP in the morning 2. Rocephin, Azithromycin 3. Lovenox for DVT prophylaxis 4. Lasix 20 mg IV push TIME SPENT: More than 35 minutes MTDD
--- NOTE | 2017-06-04 15:22 | PN ---
DATE OF SERVICE: 06/03/17 SUBJECTIVE: Admitted with COPD exacerbation and pneumonia. The patient had a high white count yesterday which was attributed to be from steroids. Shortness of breath is a little worse, coughing more. Leg edema is present. I did give Lasix yesterday and the patient did have increased frequency of urination. REVIEW OF SYSTEMS: CONSTITUTIONAL: No fever, no chills. HEENT: Normal. ENDOCRINE: No weight gain, no weight loss. CVS: No angina symptoms. No CHF symptoms. No palpitations. No atypical chest pain for CAD. Shortness of breath. No PND, no orthopnea. RESPIRATORY: Cough and congestion. No hemoptysis. GI: No nausea, no vomiting. No abdominal pain. : No hematuria. No polyuria. MUSCULOSKELETAL: No joint swelling. PSYCHIATRIC: Not anxious. No depression. No suicidal thoughts. No homicidal thoughts. SKIN: Intact. No rash. PHYSICAL EXAMINATION: V/S: BP 137/72, respiratory rate 16, heart rate 71, temperature 97.4, saturation 91%. HEENT: Normocephalic, atraumatic. Mucosa dry, pallor positive. NECK: Supple. No JVD, no carotid bruit. No lymphadenopathy. LUNGS: Decreased basilar crackles, right-sided expiratory wheeze. Clear to auscultation. No rales or rhonchi. HEART: S1, S2 normal. No S3. No murmur, gallop or regurgitation. ABDOMEN: Soft, nontender. Bowel sounds active. No rigidity. No rebound or guarding. No CVA tenderness. EXTREMITIES: 1+ edema. No clubbing or cyanosis. MUSCULOSKELETAL: No joint swelling. NEUROLOGIC: Awake, alert, oriented times three. No focal deficit. LYMPHATIC: No lymph nodes palpable. SKIN: Intact. LABS: Not done today. Yesterday revealed sodium 142, potassium 3.9, chloride 111, bicarb 26, BUN 15, creatinine 0.63. White count 53.69, hemoglobin 12.2, hematocrit 38.9, platelet count 129. ASSESSMENT: 1. SEVERE LEUKOCYTOSIS, MOST LIKELY FROM STEROIDS, RULE OUT ANY SECONDARY CAUSES 2. COPD EXACERBATION SECONDARY TO PNEUMONIA 3. HYPOXEMIA 4. HYPERTENSION 5. DYSLIPIDEMIA 6. HISTORY OF LUNG CANCER 7. DJD SPINE 8. DEPRESSION/ANXIETY PLAN: 1. CBC today 2. Continue Azithromycin, Rocephin 3. Will get chest x-ray today 4. Lovenox for DVT prophylaxis 5. IV fluids at 30 mL/hr TIME SPENT: More than 35 minutes MTDD
[2017-06-04] MEDS: VALIUM PO PRN (15:47)
[2017-06-04] MEDS: MYRBETRIQ PO SCH (21:53)
[2017-06-04] MEDS: DESYREL PO SCH (21:57)
[2017-06-05] MEDS: VALIUM PO PRN (00:02)
[2017-06-05] MEDS: PERCOCET 10-325 PO SCH ×2 (00:03→05:47)
[2017-06-05] MEDS: DUONEB NEB SCH ×2 (04:29→10:39)
[2017-06-05 05:20] VITALS: BP 122/71; TEMP 97.6
[2017-06-05] MEDS: SOLU-MEDROL 125 MG IVP SCH (08:48)
[2017-06-05] MEDS: NEURONTIN PO SCH ×2 (09:44→09:45)
[2017-06-05] MEDS: LOVENOX SUBCUT SCH (09:45)
[2017-06-05] MEDS: ROCEPHIN 1 GM in SODIUM CHLORIDE 50 ML IV SCH (09:45)
--- NOTE | 2017-06-13 11:57 | DS ---
DATE OF SERVICE: 06/05/17 FINAL DIAGNOSIS: 1. COPD EXACERBATION SECONDARY TO THE RIGHT UPPER LOBE 2. PNEUMONIA VERSUS SCARRING PER CT SCAN 3. HYPOXEMIA FROM COPD 4. GASTROENTERITIS AND DEHYDRATION WHICH ARE RESOLVED 5. HYPERTENSION 6. DJD SPINE 7. 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 DEPRESSION/ANXIETY 9. CHRONIC PAIN SYNDROME DISCHARGE INSTRUCTIONS: 1. Discharge the patient home. 2. Followup with Dr. Valladares on 06/12/17 at 1 p.m. at the [facility]. MEDICATIONS AT DISCHARGE: ProAir Valium Neurontin Myrbetriq Oxycodone Trazodone NEW PRESCRIPTIONS: Omnicef 300 mg p.o. b.i.d. for 5 days Prednisone 10 mg twice a day for 5 days DIET INSTRUCTIONS: Cardiac and healthy ACTIVITY: As much as tolerated SMOKING: N/A DISEASE SPECIFIC EDUCATION: COPD and needing pneumonia vaccination Nicotine use Lung cancer The patient verbalized understanding. HOSPITAL COURSE: This is a 67-year-old female with multiple medical problems and COPD. She came to the office with cough, congestion and shortness of breath with wheezing. At that time, the patient was admitted directly from the office to the hospital. ABGs done showed pH 7.366, pc02 47.6, p02 62. White count was normal. CT chest showed right upper lung scarring with mucosal thickening and questionable infiltration. The patient was started on Rocephin, Solu-Medrol, Lovenox for DVT prophylaxis. With the given treatment, the patient was feeling better. Solu- Medrol 80 q.12 was given. Initially fluid was at 75 mL/hr. The patient was also having nausea, vomiting, unable to keep anything down. With the Zofran and IV fluids she felt a lot better. No more nausea or vomiting. She started developing some leg edema. IV fluid was decreased to 30. Push of Lasix was given. Repeat chest x-ray showed right upper lung scarring and infiltration. Gradually the wheezing and shortness of breath was getting better. At that time , the patient was discharged home on antibiotic Omnicef and Prednisone. Advised to quit smoking and offered help. The patient doesn't want to quit at this time. TIME SPENT: MORE THAN 35 MINUTES MTDD
--- NOTE | 2017-06-13 12:45 | PN ---
DATE OF SERVICE: 06/04/17 SUBJECTIVE: The patient is admitted with COPD exacerbation, pneumonitis and flu-like symptoms. The patient has some leg edema and more shortness of breath and wheezing. Up and about walking some. REVIEW OF SYSTEMS: CONSTITUTIONAL: No fever, no chills. HEENT: Normal. ENDOCRINE: No weight gain, no weight loss. CVS: No angina symptoms. No CHF symptoms. No palpitations. No atypical chest pain for CAD. Positive for shortness of breath and wheeze. No PND, no orthopnea. RESPIRATORY: No cough, no hemoptysis. GI: No nausea, no vomiting. No abdominal pain. : No hematuria. No polyuria. MUSCULOSKELETAL: No joint swelling. PSYCHIATRIC: Not anxious. No depression. No suicidal thoughts. No homicidal thoughts. SKIN: Intact. No rash. PHYSICAL EXAMINATION: V/S: BP 161/97, respiratory rate 20, heart rate 88, temperature 97.9, saturation 91 on room air. HEENT: Normocephalic, atraumatic. Mucosa dry. NECK: Supple. No JVD, no carotid bruit. No lymphadenopathy. LUNGS: Basilar crackles. Mild wheezing on the right more than left. No rales or rhonchi. HEART: S1, S2 normal. No S3. No murmur, gallop or regurgitation. ABDOMEN: Soft, nontender. Bowel sounds active. No rigidity. No rebound or guarding. No CVA tenderness. EXTREMITIES: 1+ edema. No clubbing or cyanosis MUSCULOSKELETAL: No joint swelling. NEUROLOGIC: Awake, alert, oriented times three. No focal deficit. LYMPHATIC: No lymph nodes palpable. SKIN: Intact. LABS: White count 15.77, hemoglobin 13.3, hematocrit 42.2, platelet count 206. Sodium 141, potassium 3.7, chloride 103, bicarb 32, BUN 19, creatinine 0.69. ASSESSMENT: 1. COPD EXACERBATION SECONDARY TO BRONCHITIS AND MUCUS, RIGHT UPPER LOBE PNEUMONIA WITH INFILTRATION PER CT SCAN, SCARRING VS INFILTRATION 2. GASTROENTERITIS 3. DEHYDRATION WHICH HAS IMPROVED 4. HISTORY OF LUNG CANCER 5. HYPERTENSION 6. DYSLIPIDEMIA 7. DJD SPINE 8. OSTEOARTHRITIS 9. MULTIPLE COMPRESSION DEFORMITIES ON THE BACK 10. DEPRESSION/ANXIETY 11. CONTINUED NICOTINE USE PLAN: 1. Continue Rocephin 2. Breathing treatments 3. Duonebs 4. Out of bed to chair 5. Activity as tolerated 6. Solu-Medrol 80 q.12hr 7. Daily I & O's TIME SPENT: More than 35 minutes MTDD
== END 2017-06-05 11:00 | disposition home or self-care (01) | DRG 190 ==
LOC: MEDSURG A 14:59
PROVIDERS: ADMIT Emergency Medicine; ATTEND Emergency Medicine
DX: J44.1 Chronic obstructive pulmonary disease with (acute) exacerbation (principal); J18.9 Pneumonia, unspecified organism; J96.01 Acute respiratory failure with hypoxia; K52.9 Noninfective gastroenteritis and colitis, unspecified; J98.4 Other disorders of lung; R06.02 Shortness of breath; E86.0 Dehydration; D72.829 Elevated white blood cell count, unspecified; I10 Essential (primary) hypertension; I25.10 Atherosclerotic heart disease of native coronary artery without angina pectoris; R60.0 Localized edema; N18.9 Chronic kidney disease, unspecified; M47.9 Spondylosis, unspecified; M43.8X9 Other specified deforming dorsopathies, site unspecified; F41.8 Other specified anxiety disorders; G89.4 Chronic pain syndrome; M25.551 Pain in right hip; F17.200 Nicotine dependence, unspecified, uncomplicated; Z85.118 Personal history of other malignant neoplasm of bronchus and lung; Z79.899 Other long term (current) drug therapy
CPT/HCPCS: 36415; 80053; 82550; 82803; 83880; 84484; 85007; 85025; 87502; 93005; 93010; 94640; 97802

== ENCOUNTER 2017-06-21 08:59 | Outpatient (CLI) ==
--- NOTE | 2017-06-21 10:03 | US ---
EXAM: Ultrasound extremity upper limited, left. HISTORY: Dorsal wrist knot for 2 years, developed after fracture. FINDINGS: Fajardo-scale ultrasound and color Doppler imaging was performed in the region of interest de scribed as the left posterior wrist. There is a superficial oval shaped hypoechoic heterogeneous nod ule measuring 1.4 x 0.7 x 1.5 cm with some posterior acoustic enhancement. There are some streaks of internal blood flow suggested. No other findings. IMPRESSION: Heterogeneous superficial dorsal wrist mass as described with some linear streaks of internal blood f low. This could represent a chronic hematoma or complex seroma with some retained solid septations. A complex synovial cyst is within the differential. Exact etiology and clinical significance is unc ertain. Optimal imaging for better characterization is MRI.
== END 2017-06-21 09:00 | disposition home or self-care (01) ==
LOC: RAD 08:59
PROVIDERS: ATTEND Emergency Medicine
DX: M25.842 Other specified joint disorders, left hand (principal)
CPT/HCPCS: 76882

== ENCOUNTER 2017-07-26 15:59 | Emergency (ER) ==
[2017-07-26 16:12] VITALS: BP 120/81; TEMP 97.6; BMI 19.5
[2017-07-26] MEDS ORDERED: NORCO 10-325 PO STA (16:20)
--- NOTE | 2017-07-26 16:24 | ED.PDOC ---
General ED Provider: Dr. OJ KING Chief Complaint: Neck Pain Non-Injury Stated Complaint: neck pain Time Seen by Physician: 16:00 Mode of Arrival: Walk-In Information Source: Patient Exam Limitations: No limitations [facility] Nursing and Triage Documentation Reviewed and Agree: Yes Reviewed sepsis parameters & appropriate labs ordered?: Yes (seen with rao at all times ) System Inflammatory Response Syndrome: Not Applicable Sepsis Protocol: For patient's 13 years and over: Temp is 96.8 and below OR 101 and greater Pulse >90 BPM Resp >20/minute Acutely Altered Mental Status Are patient's symptoms suggestive of a new infection, such as: -Pneumonia -Skin, Soft Tissue -Endocarditis -UTI -Bone, Joint Infection -Implantable Device -Acute Abdominal Infection -Wound Infection -Meningitis -Blood Stream Catheter Infection -Unknown System Inflammatory Response Syndrome: Not Applicable Musculoskeletal Complaint Exam - Neck Pain Complaint/Exam Mechanism of Injury: Reports: No known trauma Onset/Duration: chronic pain Symptoms Are: Still present Timing: Constant Episodes Lasting: Hours Initial Severity: Mild Current Severity: Mild Character: Reports: Dull Aggravating: Reports: None Alleviating: Reports: None Associated Signs and Symptoms: Denies: Swelling, Redness, Bruising, Fever, Nuchal rigidity, Weakness, Headache, Paresthesia Related History: Reports: Similar episode Meningitis Risk Factors: Reports: None Cervical Spine Injury Risk Factors: Reports: None Carotid Bruit Present: No Pain on Passive Flexion: No Positive Kernig's Sign: No Focal Weakness: Present: None Focal Sensory Loss: Reports: None Nexus Low Risk Criteria: No post-midline CS tender, No evidence of intoxicat., No Altered LOC, No focal neuro deficit, No distracting injuries Review of Systems - Review Of Systems Constitutional: Reports: No symptoms Eyes: Reports: No symptoms Ears, Nose, Mouth, Throat: Reports: No symptoms Respiratory: Reports: No symptoms Cardiac: Reports: No symptoms GI: Reports: No symptoms : Reports: No symptoms Musculoskeletal: Reports: Neck pain Skin: Reports: No symptoms Neurological: Reports: No symptoms Endocrine: Reports: No symptoms Hematologic/Lymphatic: Reports: No symptoms All Other Systems: Reviewed and Negative Past Medical History - Past Medical History Previously Healthy: Yes Endocrine: Reports: None Cardiovascular: Reports: None Respiratory: Reports: COPD, Asthma Hematological: Reports: Anemia, Other (Von Willebrand's Dz) Gastrointestinal: Reports: Liver (Hepatitis C) Genitourinary: Reports: Kidney stones Neuro/Psych: Reports: Anxiety, Depression, Parkinson's Musculoskeletal: Reports: None, Other Cancer: Reports: Lung (CA right lung: October 15, 2014 appt with oncologist in [place]) Last Menstrual Period: POST MENOPAUSAL Other Pertinent Past Medical History: necrotizing fascitis right butt - Surgical History General Surgical History: Reports: , Cholecystectomy, Orthopedic (hip femur(x6), right knee, mandible surgery) - Family History Family History: Reports: Unknown - Social History Smoking Status: Current every day smoker Hx Substance Use: No Alcohol Screening: None - Immunizations Tetanus Shot up to Date: No Influenza Vaccine within 12 Months: No Pneumococcal Vaccine up to Date: No Physical Exam - Physical Exam Appearance: Well-appearing, No pain distress, Well-nourished Eyes: SAMEERA, EOMI, Conjunctiva clear ENT: Ears normal, Nose normal, Oropharynx normal Respiratory: Airway patent, Breath sounds clear, Breath sounds equal, Respirations nonlabored Cardiovascular: RRR, Pulses normal, No rub, No murmur GI/: Soft, Nontender, No masses, Bowel sounds normal, No Organomegaly Musculoskeletal: Normal strength, ROM intact, No edema, No calf tenderness Skin: Warm, Dry, Normal color Neurological: Sensation intact, Motor intact, Reflexes intact, Cranial nerves intact, Alert, Oriented Psychiatric: Affect appropriate, Mood appropriate Critical Care Note - Critical Care Note Total Time (mins): 0 Course - Course Vital Signs: Temp Pulse Resp BP Pulse Ox 07/26/17 16:01 97.6 F 86 20 120/81 100 Departure - Departure Time of Disposition: 16:24 Disposition: HOME SELF-CARE Discharge Problem: Neck pain Instructions: Neck Pain (ED) Condition: Good Pt referred to PMD for follow-up: Yes IPMP verified?: No Additional Instructions: Please call your Family Physician as soon as possible to schedule a follow-up appointment. Prescriptions: Hydrocodone/Acetaminophen [[place] 10-325 Tablet] 1 each PO Q8HR #12 tablet Allergies/Adverse Reactions: Allergies varenicline tartrate [From Chantix] Allergy (Severe, Unverified 07/26/17 16:01) hypertension ketorolac tromethamine [From Toradol] Adverse Reaction (Mild, Verified 07/26/17 16:01) acetaminophen [From Fioricet] Adverse Reaction (Verified 07/26/17 16:01) butalbital [From Fioricet] Adverse Reaction (Verified 07/26/17 16:01) caffeine [From Fioricet] Adverse Reaction (Verified 07/26/17 16:01) morphine Adverse Reaction (Verified 07/26/17 16:01) nalbuphine HCl [From Nubain] Adverse Reaction (Verified 07/26/17 16:01) ondansetron HCl [From Zofran (as hydrochloride)] Adverse Reaction (Verified 06/14 16:01) pentazocine lactate [From Talwin] Adverse Reaction (Verified 07/26/17 16:01) propoxyphene napsylate [From Darvocet-N 100] Adverse Reaction (Verified 16:01) Home Medications: Ambulatory Orders Gabapentin [Neurontin] 800 mg PO QID 09/25/14 Oxycodone HCl/Acetaminophen [Percocet 10-325 Mg Tablet] 1 each PO QID 05/31/17 Cyclobenzaprine HCl 10 mg PO BID 06/19/17 Hydrocodone/Acetaminophen [[place] 10-325 Tablet] 1 each PO Q8HR #12 tablet
== END 2017-07-26 16:28 | disposition home or self-care (01) ==
LOC: ED 15:59
DX: M54.2 Cervicalgia (principal); F17.210 Nicotine dependence, cigarettes, uncomplicated
CPT/HCPCS: 99283

== ENCOUNTER 2017-08-13 15:28 | Outpatient (CLI) | END 2017-08-13 15:29 | disposition home or self-care (01) | LOC: RHC-LAB 15:28 | PROVIDERS: ATTEND Emergency Medicine | DX: J44.9 Chronic obstructive pulmonary disease, unspecified (principal); C34.11 Malignant neoplasm of upper lobe, right bronchus or lung; E78.5 Hyperlipidemia, unspecified; F41.1 Generalized anxiety disorder | CPT/HCPCS: 36415; 80053; 80061; 84443; 85025 ==

== ENCOUNTER 2017-09-20 17:34 | Inpatient (IN) | payer OTHER ==
[2017-09-20] MEDS ORDERED: DUONEB NEB STA (18:20)
--- NOTE | 2017-09-20 18:22 | ED.PDOC ---
General ED Provider: Dr. MARYAM SALAZAR Chief Complaint: Respiratory Complaint Stated Complaint: SOB. States has experienced increasing difficulty with breathing over past several days. Has cough with yellow green sputum. Uses albuterol inhaler at home Time Seen by Physician: 18:00 Mode of Arrival: Walk-In Information Source: Patient Exam Limitations: No limitations Primary Care Provider: [facility] Nursing and Triage Documentation Reviewed and Agree: Yes Reviewed sepsis parameters & appropriate labs ordered?: Yes System Inflammatory Response Syndrome: Not Applicable Sepsis Protocol: For patient's 13 years and over: Temp is 96.8 and below OR 101 and greater Pulse >90 BPM Resp >20/minute Acutely Altered Mental Status Are patient's symptoms suggestive of a new infection, such as: -Pneumonia -Skin, Soft Tissue -Endocarditis -UTI -Bone, Joint Infection -Implantable Device -Acute Abdominal Infection -Wound Infection -Meningitis -Blood Stream Catheter Infection -Unknown System Inflammatory Response Syndrome: Not Applicable Respiratory Complaint Exam - Shortness of Air Complaint/Exam Symptoms Are: Still present Timing: Constant Initial Severity: Severe Current Severity: Moderate Character: Reports: Dyspnea at rest, Dyspnea on exertion Aggravating: Reports: Movement, Deep breaths, Recumbent position, URI. Denies: Smoke exposure, Weather Alleviating: Reports: Bronchodilators (minimal), Oxygen Associated Signs and Symptoms: Reports: Cough, Wheezing, Nasal congestion. Denies: Chest pain, Fever, Chills, Diaphoresis, Dizziness, Calf pain, Calf swelling, Edema History of Healthcare-Acquired Pneumonia: No Pulmonary Embolism Risk Factors: Reports: None Cardiac Risk Factors: Reports: None Pseudomonas Risk Factors: Reports: None Tuberculosis Risk Factors: Reports: None Home Oxygen Use: No Recent Stress Test: No Recent Echo/LV Function: No Respiratory Distress: Mild Stridor Present: No Tracheal Deviation: No Subcutaneous Emphysema: No Accessory Muscle Use: No Retractions: Not Present Diminished Breath Sounds: Yes Unable to Speak Full Sentences: Yes Fatigue: Yes Leg Swelling: No Mike's Sign Present: No Grunting Respirations: No Kussmaul Respirations: No Differential Diagnoses: Airway Obstruction, COPD Exacerbation, Bronchospasm Review of Systems - Review Of Systems Constitutional: Reports: Weakness. Denies: Chills, Diaphoresis, Fever Eyes: Reports: No symptoms Ears, Nose, Mouth, Throat: Reports: No symptoms Respiratory: Reports: Cough, Short of air, Wheezing Cardiac: Reports: No symptoms GI: Reports: No symptoms : Reports: No symptoms Musculoskeletal: Reports: No symptoms Skin: Reports: No symptoms Neurological: Reports: No symptoms Endocrine: Reports: No symptoms Hematologic/Lymphatic: Reports: No symptoms All Other Systems: Reviewed and Negative Past Medical History - Past Medical History Previously Healthy: No Endocrine: Reports: None Cardiovascular: Reports: None Respiratory: Reports: COPD, Asthma Hematological: Reports: Anemia, Other (Von Willebrand's Dz) Gastrointestinal: Reports: Liver (Hepatitis C) Genitourinary: Reports: Kidney stones Neuro/Psych: Reports: Anxiety, Depression, Parkinson's Musculoskeletal: Reports: None, Other Cancer: Reports: Lung (CA right lung: October 15, 2014 appt with oncologist in [place]) Last Menstrual Period: n/a Other Pertinent Past Medical History: necrotizing fascitis right butt - Surgical History General Surgical History: Reports: , Cholecystectomy, Orthopedic (hip femur(x6), right knee, mandible surgery) - Family History Family History: Reports: Unknown - Social History Smoking Status: Current every day smoker Hx Substance Use: No Alcohol Screening: None - Immunizations Influenza Vaccine within 12 Months: No Pneumococcal Vaccine up to Date: No Physical Exam - Physical Exam Appearance: Ill-appearing, Obese Ill-appearing: Moderate Pain Distress: None Eyes: SAMEERA, EOMI, Conjunctiva clear ENT: Ears normal, Nose normal, Oropharynx normal Neck: Supple Respiratory: Breath sounds diminished, Rhonchi, Wheezes Cardiovascular: RRR, Pulses normal, No rub GI/: Soft, Nontender, No masses, Bowel sounds normal Musculoskeletal: Normal strength, ROM intact, No edema Skin: Warm, Dry, Pale Neurological: Sensation intact, Motor intact, Cranial nerves intact, Alert, Oriented Psychiatric: Affect appropriate, Mood appropriate, Anxious Physician Notification - Case Discussed Physician Notified: Dr Valladares Time of Notification: 19:15 (discussed case and will assume management) Critical Care Note - Critical Care Note Total Time (mins): 60 Course - Course Orders, Labs, Meds: Lab Review 09/20/17 18:18 Puncture Site Lb O2 Saturation 92.0 L ABG pH 7.455 H ABG pCO2 34.9 L ABG pO2 61.0 L ABG HCO3 24.6 ABG Total CO2 26 ABG Base Excess 1 FiO2 % 21.0 Orders Category Date Time Status ABG DRAW REQUEST Stat CARDIO 09/20/17 18:19 Ordered EKG-(ED ONLY) Stat CARDIO 09/20/17 18:19 Ordered NEBULIZER TREATMENT Stat CARDIO 09/20/17 18:20 Ordered NEBULIZER TREATMENT Stat CARDIO 09/20/17 18:20 Ordered NPO REMINDER: IMAGING ONCE CARE 09/20/17 18:17 Completed IV [ED IV/MEDIPORT/POWERPORT] .ONCE EMERGENCY 09/20/17 18:19 Active ABG Stat LAB 09/20/17 18:18 Completed BLOOD CULTURE (ED ONLY) Stat LAB 09/20/17 19:00 Received CBC W/ AUTO DIFF Stat LAB 09/20/17 19:00 Received CMP [COMPREHENSIVE METABOLIC PANEL] Stat LAB 09/20/17 19:00 Received FLU A & B MOLECULAR [FLU A/B MOLECULAR] Stat LAB 09/20/17 19:03 Ordered LACTIC ACID Stat LAB 09/20/17 19:00 Received PROCALCITONIN Stat LAB 09/20/17 19:00 Received RAPID STREP SCREEN [MOLECULAR GROUP A STREP] Stat LAB 09/20/17 19:03 Ordered SPUTUM CULTURE Stat LAB 09/20/17 18:18 Uncollected TROPONIN I Stat LAB 09/20/17 19:00 Received UA [URINALYSIS C & S IF INDICATED] Stat LAB 09/20/17 18:18 Uncollected 0.9 % Sodium Chloride [Saline Flush] MEDS 09/20/17 18:18 Ordered 1 syr IVF PRN PRN Ipratropium/Albuterol Neb [Duoneb] MEDS 09/20/17 18:20 Discontinued 1 vial NEB ONCE STA CT CHEST W/WO CONTRAST Stat RADS 09/20/17 18:16 Ordered Medications Generic Name Dose Route Start Last Admin Trade Name Freq PRN Reason Stop Dose Admin Sodium Chloride 1 syr 09/20/17 18:18 Saline Flush IVF PRN PRN To flush IV Discontinued Medications Generic Name Dose Route Start Last Admin Trade Name Freq PRN Reason Stop Dose Admin Albuterol/Ipratropium 1 vial 09/20/17 18:20 09/20/17 18:56 Duoneb NEB 09/20/17 18:21 1 vial ONCE STA Administration Vital Signs: Temp Pulse Resp BP Pulse Ox 09/20/17 17:35 99.5 F 90 20 150/84 H 94 L Departure - Departure Time of Disposition: 19:30 Disposition: ADMITTED INPATIENT Discharge Problem: COPD exacerbation, Hx of cancer of lung Condition: Fair Pt referred to PMD for follow-up: Yes (Dr Valladares) IPMP verified?: No Allergies/Adverse Reactions: Allergies varenicline tartrate [From Chantix] Allergy (Severe, Verified 09/20/17 17:38) hypertension ketorolac tromethamine [From Toradol] Adverse Reaction (Mild, Verified 09/20/17 17:38) acetaminophen [From Fioricet] Adverse Reaction (Verified 09/20/17 17:38) butalbital [From Fioricet] Adverse Reaction (Verified 09/20/17 17:38) caffeine [From Fioricet] Adverse Reaction (Verified 09/20/17 17:38) morphine Adverse Reaction (Verified 09/20/17 17:38) nalbuphine HCl [From Nubain] Adverse Reaction (Verified 09/20/17 17:38) ondansetron HCl [From Zofran (as hydrochloride)] Adverse Reaction (Verified 17:38) pentazocine lactate [From Talwin] Adverse Reaction (Verified 09/20/17 17:38) propoxyphene napsylate [From Darvocet-N 100] Adverse Reaction (Verified 17:38) Home Medications: Ambulatory Orders Gabapentin [Neurontin] 800 mg PO QID 09/25/14 Oxycodone HCl/Acetaminophen [Percocet 10-325 Mg Tablet] 1 each PO QID 05/31/17 Cyclobenzaprine HCl 10 mg PO BID 06/19/17 Additional Information: Oxygen 2 l per NC was initiated plus antibiotics initiated Turned care over to Dr Valladares.
[2017-09-20] MEDS ORDERED: LEVAQUIN 750 MG in PREMIX 150 ML D5W 1 BAG IV STA (19:18)
[2017-09-20] MEDS ORDERED: SOLU-MEDROL 125 MG IM STA (19:18)
[2017-09-20] MEDS ORDERED: LEVAQUIN 150 ML IV ONE (19:23)
[2017-09-20] MEDS ORDERED: AZACTAM 2 GM in SODIUM CHLORIDE 100 ML IV STA (19:26)
[2017-09-20] MEDS ORDERED: VANCOMYCIN 1 GM in SODIUM CHLORIDE 250 ML IV STA (19:29)
[2017-09-20 20:46] VITALS: BMI 18.8
--- NOTE | 2017-09-20 20:47 | CT ---
EXAM: CT of the chest without and with IV contrast. HISTORY: Cough and congestion. Patient history of lung carcinoma. COMPARISON: 05/31/2017. TECHNIQUE: Contiguous axial images were obtained from the lung apices to the upper abdomen, before a nd after IV contrast. Sagittal and coronal reformats were reviewed. FINDINGS: The lung windows demonstrate bilateral emphysematous changes. There is a persistent and st able area of fibrosis and consolidation in the right upper lobe. Adjacent ground-glass opacities seen . Overall no significant change in comparison to the prior study. There are no other areas of conso lidation or effusion. The airways are patent. The heart size is within normal limits. There are co ronary calcifications. There is a large amount of high density stool in the colon. The gallbladder is absent. The liver is unremarkable. There is loss of the to height and in the lower thoracic vertebral body which is unch anged. IMPRESSION: 1. Stable area of fibrosis bronchiectasis in the right upper lobe. No significant change in appeara nce in comparison to the prior study. No new areas of consolidation. 2. Emphysematous changes. 3. Coronary artery disease.
[2017-09-20] MEDS ORDERED: FLEXERIL PO PRN (21:20)
[2017-09-20] MEDS ORDERED: PERCOCET 10-325 PO PRN ×2 (21:50→21:52)
[2017-09-20] MEDS ORDERED: PERCOCET 10-325 ONE (22:07)
[2017-09-20] MEDS ORDERED: AZACTAM ONE (22:07)
[2017-09-20] MEDS ORDERED: NON-FORMULARY MEDICATION (Gabapentin [Neurontin] 800 MG) PO SCH (22:35)
[2017-09-20] MEDS ORDERED: NON-FORMULARY MEDICATION (Mirabegron [Myrbetriq] 50 MG) PO SCH (22:36)
[2017-09-20] MEDS ORDERED: NON-FORMULARY MEDICATION (Trazodone Hcl [Trazodone Hcl] 150 MG) PO SCH (22:36)
[2017-09-20] MEDS ORDERED: NEURONTIN ONE ×2 (22:40)
[2017-09-20] MEDS ORDERED: DESYREL ONE (22:40)
[2017-09-20] MEDS: DUONEB NEB SCH (22:45)
[2017-09-20] MEDS: SODIUM CHLORIDE 1,000 ML IV SCH (22:48)
[2017-09-21] MEDS: PERCOCET 10-325 PO PRN ×3 (04:48→17:22)
[2017-09-21] MEDS: SOLU-MEDROL 125 MG IVP SCH ×3 (04:48→22:25)
[2017-09-21] MEDS: DUONEB NEB SCH ×4 (04:49→23:41)
[2017-09-21] MEDS ORDERED: AZACTAM 1 GM in SODIUM CHLORIDE 50 ML IV SCH (05:00)
[2017-09-21] MEDS ORDERED: MICRO-K CAP PO SCH (08:00)
[2017-09-21] MEDS ORDERED: PERCOCET 10-325 PO SCH (09:00)
[2017-09-21] MEDS ORDERED: VANCOMYCIN 1 GM in SODIUM CHLORIDE 250 ML IV SCH ×4 (09:00)
[2017-09-21] MEDS ORDERED: NON-FORMULARY MEDICATION (Gabapentin [Neurontin] 800 MG) PO SCH (09:00)
[2017-09-21] MEDS ORDERED: CALCIUM 500 + VIT D 200 MG TABLET PO SCH (09:00)
[2017-09-21] MEDS ORDERED: NON-FORMULARY MEDICATION (Lisinopril [Zestril] 20 MG) PO SCH (09:00)
[2017-09-21] MEDS: VANCOMYCIN 500 MG in SODIUM CHLORIDE 100 ML IV SCH ×2 (09:10→22:25)
[2017-09-21] MEDS: NEURONTIN PO SCH ×8 (09:10→21:41)
[2017-09-21] MEDS: ZESTRIL PO SCH (09:11)
[2017-09-21] MEDS: AZACTAM 1 GM in SODIUM CHLORIDE 50 ML IV SCH ×2 (12:21→21:38)
[2017-09-21] MEDS: FLEXERIL PO PRN (15:20)
--- NOTE | 2017-09-21 15:56 | HP ---
DATE OF SERVICE: 09/20/17 CHIEF COMPLAINT: Shortness of breath HISTORY OF PRESENT ILLNESS: This is a 67 year old female with the multiple medical problems; COPD came to the emergency room with cough and congestion and shortness of breath. Started taking the extra breathing treatments gradually the shortness of breath was getting worse, this all started two days ago getting yellow/green phlegm. As her shortness of breath was getting worse the patient came to the emergency room , seen by Dr. Olivas in the emergency room. Saturation was 88 on the room. Blood pressure 150/84. ABG showed the pH 7.45, pCo2 34.9, pO2 61. CT chest was done and did not show any acute findings. After a dose of Vancomycin, Azactam and Solu-Medrol the patient was still short of breath needing hospitalization for the IV antibiotics and breathing treatment for the COPD exacerbation and bronchitis. REVIEW OF SYSTEMS: CONSTITUTIONAL: No fever, no chills. Weakness and tiredness. HEENT: Normal. ENDOCRINE: No weight gain; no weight loss. CVS: No chest pain. No PND, no orthopnea. Shortness of breath. No PND, no orthopnea. RESPIRATORY: Cough, Congestion. No hemoptysis. GI: No nausea, no vomiting. No abdominal pain. No melena. : No hematuria. No polyuria. MUSCULOSKELETAL: No joint swelling. Back pain. PSYCHIATRIC: Anxious. No depression. No suicidal thoughts. No homicidal thoughts. SKIN: Intact, no open lesions. PAST MEDICAL HISTORY: CAD Hypertension COPD History of Lung cancer seen Dr. Forte Osteoarthritis DJD spine Depression Anxiety disorder History of substance use PAST SURGICAL HISTORY: Cholecystectomy Appendectomy Repair of the right hip and jaw Von Willebrand Factor deficiency PERSONAL HISTORY: The patient does smoke, no alcohol and no drugs. Smokes weed sometime. Family history is significant for diabetes and CHF. MEDICATIONS: Neurontin Myrbetriq Percocet Cyclobenzaprine ProAir Trazodone Lisinopril ALLERGIES: Chantex Toradol Acetaminophen Butalbital Caffeine Morphine Nalbuphine Ondansetron Pentazocine Propoxyphene PHYSICAL EXAMINATION: V/S: blood pressure 150/84, respiratory rate 20, heart rate 90, temperature 99.5 and saturation 94 on 2 liters. HEENT: Atraumatic, normocephalic. No scleral icterus. Mucosa dry. Cachetic lady laying in the bed in mild respiratory distress. NECK: Supple. No JVD, no bruit. No lymphadenopathy. No thyromegaly. HEART: S1, S2 normal. No murmur. No cyanosis or clubbing. No ascites. LUNGS: Decreased and basilar crackles, defused expiratory wheezing. Clear to auscultation. No rales or rhonchi. ABDOMEN: Soft, nontender. Bowel sounds are active. No CVA tenderness. No rigidity or guarding. EXTREMITIES: No pedal edema. No cyanosis or clubbing MUSCULOSKELETAL: Normal joints, no swelling. NEUROLOGIC: The patient is awake and alert. SKIN: Intact; no open lesions. LYMPHATIC: No lymph nodes palpable. LABS: WBC 17.06, hgb 14.5, hct 44.9, plt count 274, sodium 139, potassium 3.6, chloride 106, bicarb 23, BUN 8, creatinine 0.60 and glucose 106. First set of cardiac enzymes are negative. Urine trace bacteria, negative for nitrates and leukocyte esterase. Serology negative. ASSESSMENT: 1. COPD exacerbation secondary to the bronchitis 2. Hypoxemic respiratory failure 3. History of hypertension 4. Dyslipidemia 5. Osteoarthritis 6. DJD spine 7. Depression 8. Anxiety PLAN: 1. Admit patient to the regular floor 2. CBC and CMP today and daily 3. Cardiac enzymes and Troponin 4. IV fluids 5. Solu-Medrol 125mg Q 8 hours 6. DUO NEBS Q 6 hours 7. Azactam 8. Vancomycin 9. Continue Home medication 10. Daily I&O's TIME SPENT: MORE THAN 70 minutes MTDD
[2017-09-21] MEDS: DEMEROL 50 MG/ML VIAL IVP PRN (20:30)
[2017-09-21] MEDS ORDERED: NON-FORMULARY MEDICATION (Trazodone Hcl [Trazodone Hcl] 150 MG) PO SCH (21:00)
[2017-09-21] MEDS ORDERED: NON-FORMULARY MEDICATION (Mirabegron [Myrbetriq] 50 MG) PO SCH (21:00)
[2017-09-21] MEDS: DESYREL PO SCH (21:40)
[2017-09-21] MEDS: MYRBETRIQ PO SCH (21:41)
[2017-09-22] MEDS: SODIUM CHLORIDE 1,000 ML IV SCH ×3 (00:39→13:41)
[2017-09-22] MEDS: DEMEROL 50 MG/ML VIAL IVP PRN ×3 (04:22→18:21)
[2017-09-22] MEDS: AZACTAM 1 GM in SODIUM CHLORIDE 50 ML IV SCH ×3 (04:22→20:43)
[2017-09-22] MEDS: SOLU-MEDROL 125 MG IVP SCH ×3 (04:25→20:09)
[2017-09-22] MEDS: DUONEB NEB SCH ×3 (05:26→21:32)
[2017-09-22] MEDS: PERCOCET 10-325 PO PRN ×3 (06:26→20:45)
[2017-09-22] MEDS: VANCOMYCIN 500 MG in SODIUM CHLORIDE 100 ML IV SCH ×2 (09:10→22:14)
[2017-09-22] MEDS: NEURONTIN PO SCH ×8 (09:10→20:45)
[2017-09-22] MEDS: FLEXERIL PO PRN ×2 (09:11→20:46)
[2017-09-22] MEDS: ZESTRIL PO SCH (09:11)
[2017-09-22] MEDS: MYRBETRIQ PO SCH (20:44)
[2017-09-22] MEDS: DESYREL PO SCH (20:45)
[2017-09-22] MEDS ORDERED: GI COCKTAIL PO STA (22:02)
[2017-09-23] MEDS: DEMEROL 50 MG/ML VIAL IVP PRN ×4 (01:00→20:03)
[2017-09-23] MEDS: PERCOCET 10-325 PO PRN ×2 (04:43→17:19)
[2017-09-23] MEDS: SOLU-MEDROL 125 MG IVP SCH (04:44)
[2017-09-23] MEDS: AZACTAM 1 GM in SODIUM CHLORIDE 50 ML IV SCH ×3 (04:54→20:03)
[2017-09-23] MEDS: DUONEB NEB SCH ×3 (05:01→22:40)
[2017-09-23] MEDS: NEURONTIN PO SCH ×8 (09:00→20:03)
[2017-09-23] MEDS: ZESTRIL PO SCH (09:01)
[2017-09-23] MEDS: SODIUM CHLORIDE 1,000 ML IV SCH (09:59)
[2017-09-23] MEDS: VANCOMYCIN 500 MG in SODIUM CHLORIDE 100 ML IV SCH (10:02)
[2017-09-23] MEDS: VANCOMYCIN 750 MG in SODIUM CHLORIDE 250 ML IV SCH ×2 (10:48→20:53)
[2017-09-23] MEDS: MYRBETRIQ PO SCH (20:03)
[2017-09-23] MEDS: DESYREL PO SCH (20:03)
[2017-09-23] MEDS: FLEXERIL PO PRN (20:04)
[2017-09-24] MEDS: PERCOCET 10-325 PO PRN ×3 (01:14→21:03)
[2017-09-24] MEDS: AZACTAM 1 GM in SODIUM CHLORIDE 50 ML IV SCH ×3 (04:42→20:34)
[2017-09-24] MEDS: DEMEROL 50 MG/ML VIAL IVP PRN ×3 (04:42→17:58)
[2017-09-24] MEDS: DUONEB NEB SCH ×3 (05:05→21:38)
[2017-09-24] MEDS: NEURONTIN PO SCH ×8 (10:03→20:36)
[2017-09-24] MEDS: ZESTRIL PO SCH (10:03)
[2017-09-24] MEDS: VANCOMYCIN 750 MG in SODIUM CHLORIDE 250 ML IV SCH ×2 (10:03→21:19)
--- NOTE | 2017-09-24 12:03 | DI ---
EXAM: Chest two view, frontal and lateral views. HISTORY: Chest congestion. COMPARISON: 09/20/2017, 02/23/2017. FINDINGS: Heart size is normal. There is no vascular congestion. Band-like consolidation in the ri ght upper lobe again noted. The lungs otherwise clear without pleural effusion or pneumothorax. Com pression deformity of the mid thoracic and upper lumbar vertebral body again noted. Clips seen in th e right upper abdomen. IMPRESSION: Stable right upper lobe consolidation. No new pulmonary findings.
[2017-09-24] MEDS: SODIUM CHLORIDE 1,000 ML IV SCH (17:58)
[2017-09-24] MEDS: DESYREL PO SCH (20:35)
[2017-09-24] MEDS: MYRBETRIQ PO SCH (20:35)
[2017-09-25] MEDS: DEMEROL 50 MG/ML VIAL IVP PRN ×2 (01:35→08:43)
[2017-09-25] MEDS: DUONEB NEB SCH ×2 (05:02→14:06)
[2017-09-25] MEDS: AZACTAM 1 GM in SODIUM CHLORIDE 50 ML IV SCH ×2 (05:39→13:10)
[2017-09-25] MEDS: PERCOCET 10-325 PO PRN ×2 (06:43→13:10)
[2017-09-25] MEDS: ZESTRIL PO SCH (08:42)
[2017-09-25] MEDS: VANCOMYCIN 750 MG in SODIUM CHLORIDE 250 ML IV SCH (08:42)
[2017-09-25] MEDS: NEURONTIN PO SCH ×4 (08:43→13:10)
[2017-09-25 10:21] VITALS: BP 157/90; TEMP 97.8
--- NOTE | 2017-10-05 14:12 | PN ---
DATE OF SERVICE: 09/22/17 SUBJECTIVE: The patient was admitted with COPD exacerbation and bronchitis. She is still coughing and congested. White count has been elevated up to 66, 000 today. No nausea or vomiting. No diarrhea. No abdominal pain. No fever or chills. REVIEW OF SYSTEMS: CONSTITUTIONAL: No fever, no chills. HEENT: Normal. ENDOCRINE: No weight gain, no weight loss. CVS: No angina symptoms. No CHF symptoms. No palpitations. No atypical chest pain for CAD. No shortness of breath. No PND, no orthopnea. RESPIRATORY: Cough and congestion, no hemoptysis. GI: No nausea, no vomiting. No abdominal pain. : No hematuria. No polyuria. MUSCULOSKELETAL: No joint swelling. PSYCHIATRIC: Not anxious. No depression. No suicidal thoughts. No homicidal thoughts. SKIN: Intact. No rash. PHYSICAL EXAMINATION: V/S: Blood pressure 124/82, respiratory rate 20, heart rate 84, temperature 98.2 , saturation 94 on room air. GENERAL: Cachectic lady lying in the bed. HEENT: Normocephalic, atraumatic. Mucosa dry. Pallor positive. No icterus. NECK: Supple. No JVD, no carotid bruit. No lymphadenopathy. LUNGS: Decreased and basilar crackles, expiratory wheezing, right more than the left. No rales or rhonchi. HEART: S1, S2 normal. No S3. No murmur, gallop or regurgitation. ABDOMEN: Soft, nontender. Bowel sounds active. No rigidity. No rebound or guarding. No CVA tenderness. EXTREMITIES: No cyanosis, clubbing or pedal edema. MUSCULOSKELETAL: No joint swelling. NEUROLOGIC: Awake, alert, oriented times three. No focal deficit. LYMPHATIC: No lymph nodes palpable. SKIN: Intact. LABS: White count 66.62, hemoglobin 13.1, hematocrit 40.3, platelet count 159, sodium 140, potassium 3.9, chloride 107, bicarb 25, BUN 17, creatinine 0.67, glucose 145. ASSESSMENT: 1. LEUKOCYTOSIS, MOST LIKELY REACTION FROM STEROIDS 2. CHRONIC OBSTRUCTIVE PULMONARY DISEASE EXACERBATION SECONDARY TO THE BRONCHITIS 3. MIGRAINE HEADACHES 4. MULTIPLE COMPRESSION DEFORMITIES ON THE LUNGS 5. HISTORY OF LUNG CANCER 6. CACHECTIC LADY 7. HYPERTENSION 8. DYSLIPIDEMIA 9. DEPRESSION 10. CHRONIC PAIN SYNDROME PLAN: 1. Continue Azactam, Vancomycin, DuoNebs. 2. Solu-Medrol, will decrease Solu-Medrol from 125 every 8 hours to 90 every 8 hours. 3. Daily I & O's. 4. Will keep monitoring of the white count. TIME SPENT: More than 35 minutes MTDD
--- NOTE | 2017-10-05 15:04 | PN ---
DATE OF SERVICE: 09/23/17 SUBJECTIVE: The patient's cough and congestion is better. She is up and about walking and going out to smoke. White count is better today at 39.75. Solu- Medrol has been decreased. No nausea or vomiting. No fever or chills. No abdominal pain or diarrhea. REVIEW OF SYSTEMS: CONSTITUTIONAL: No fever, no chills. HEENT: Normal. ENDOCRINE: No weight gain, no weight loss. CVS: No angina symptoms. No CHF symptoms. No palpitations. No atypical chest pain for CAD. No shortness of breath. No PND, no orthopnea. RESPIRATORY: Cough and congestion is better, no hemoptysis. GI: No nausea, no vomiting. No abdominal pain. : No hematuria. No polyuria. MUSCULOSKELETAL: No joint swelling. PSYCHIATRIC: Not anxious. No depression. No suicidal thoughts. No homicidal thoughts. SKIN: Intact. No rash. PHYSICAL EXAMINATION: V/S: Blood pressure 151/85, respiratory rate 20, heart rate 88, temperature 98.1 , saturation 94. HEENT: Normocephalic, atraumatic. Mucosa dry. Pallor positive. No icterus. NECK: Supple. No JVD, no carotid bruit. No lymphadenopathy. LUNGS: Decreased and basilar crackles, expiratory wheezing is present. No rales or rhonchi. HEART: S1, S2 normal. No S3. No murmur, gallop or regurgitation. ABDOMEN: Soft, nontender. Bowel sounds active. No rigidity. No rebound or guarding. No CVA tenderness. EXTREMITIES: No cyanosis, clubbing or pedal edema. MUSCULOSKELETAL: No joint swelling. NEUROLOGIC: Awake, alert, oriented times three. No focal deficit. LYMPHATIC: No lymph nodes palpable. SKIN: Intact. LABS: White count 39.75, hemoglobin 13.6, hematocrit 42.6, platelet count 168, sodium 140, potassium 3.4, chloride 105, bicarb 24, BUN 16, creatinine 0.66, glucose 195. ASSESSMENT: 1. CHRONIC OBSTRUCTIVE PULMONARY DISEASE EXACERBATION SECONDARY TO THE BRONCHITIS 2. ELEVATED WHITE COUNT MOST LIKELY FROM THE STEROIDS 3. CORONARY ARTERY DISEASE 4. CHRONIC OBSTRUCTIVE PULMONARY DISEASE 5. HISTORY OF LUNG CANCER 6. LUNG CANCER 7. DEPRESSION 8. ANXIETY 9. MULTIPLE COMPRESSION DEFORMITIES ON BACK 10. CHRONIC PAIN SYNDROME PLAN: 1. Continue the Vancomycin. 2. Stop the Prednisone. 3. Keep monitoring the white count. 4. Up and about walking. 5. No anticoagulation at this time. TIME SPENT: More than 35 minutes MTDD
--- NOTE | 2017-10-05 15:11 | PN ---
DATE OF SERVICE: 09/21/17 SUBJECTIVE: Admitted with COPD exacerbation, bronchitis, shortness of breath. The patient is still coughing and congested. Complains of back pain and neck pain. REVIEW OF SYSTEMS: CONSTITUTIONAL: No fever, no chills. HEENT: Normal. ENDOCRINE: No weight gain, no weight loss. CVS: No angina symptoms. No CHF symptoms. No palpitations. No atypical chest pain for CAD. No shortness of breath. No PND, no orthopnea. RESPIRATORY: Cough and congested with yellow-green phlegm production. no hemoptysis. GI: No nausea, no vomiting. No abdominal pain. : No hematuria. No polyuria. MUSCULOSKELETAL: No joint swelling. PSYCHIATRIC: Not anxious. No depression. No suicidal thoughts. No homicidal thoughts. SKIN: Intact. No rash. PHYSICAL EXAMINATION: V/S: BP 151/85, respiratory rate 20, heart rate 88, temperature 98.7, saturation 94. HEENT: Normocephalic, atraumatic. Mucosa dry. Cachetic lady lying in bed not in any distress with some cough and congestion. NECK: Supple. No JVD, no carotid bruit. No lymphadenopathy. LUNGS: Decreased entry, bibasilar crackles, expiratory wheezing is present diffusely. HEART: S1, S2 normal. No S3. No murmur, gallop or regurgitation. ABDOMEN: Soft, nontender. Bowel sounds active. No rigidity. No rebound or guarding. No CVA tenderness. EXTREMITIES: No cyanosis, clubbing or pedal edema. MUSCULOSKELETAL: No joint swelling. NEUROLOGIC: Awake, alert. LYMPHATIC: No lymph nodes palpable. SKIN: Intact. LABS: White count 11.81, hemoglobin 14.2, hematocrit 44.6, platelet count 275. Neutrophils with left shift. Sodium 140, potassium 3.8, chloride 107, bicarb 23 , BUN 11, creatinine 0.70, glucose 161. ASSESSMENT: 1. COPD EXACERBATION SECONDARY TO BRONCHITIS 2. HYPOXEMIC RESPIRATORY FAILURE 3. HISTORY OF LUNG CANCER 4. HYPERTENSION 5. OSTEOARTHRITIS 6. DJD SPINE 7. CHRONIC PAIN SYNDROME 8. MULTIPLE COMPRESSION DEFORMITIES PLAN: 1. Antibiotics Azactam, Vancomycin, Duonebs and Solumedrol 125 mg q.8hr 2. Daily I & Os TIME SPENT: More than 35 minutes MTDD
--- NOTE | 2017-10-05 15:19 | PN ---
DATE OF SERVICE: 09/24/17 SUBJECTIVE: The patient did have a leukemoid reaction to steroids. White count went up to 66 ,000 then 67,000. White count has gradually gotten better. Today it is 34,000. She is still coughing with congestion. REVIEW OF SYSTEMS: CONSTITUTIONAL: No fever, no chills. HEENT: Normal. ENDOCRINE: No weight gain, no weight loss. CVS: No angina symptoms. No CHF symptoms. No palpitations. No atypical chest pain for CAD. Shortness of breath with minimal exertion. No PND, no orthopnea. RESPIRATORY: Cough and congestion. No hemoptysis. GI: No nausea, no vomiting. No abdominal pain. : No hematuria. No polyuria. MUSCULOSKELETAL: No joint swelling. PSYCHIATRIC: Not anxious. No depression. No suicidal thoughts. No homicidal thoughts. SKIN: Intact. No rash. PHYSICAL EXAMINATION: V/S: BP 147/82, respiratory rate 20, heart rate 93, temperature 98.0, saturation 95 on room air. HEENT: Normocephalic, atraumatic. Mucosa dry. NECK: Supple. No JVD, no carotid bruit. No lymphadenopathy. LUNGS: Decreased basilar crackles, expiratory wheezing bilaterally. HEART: S1, S2 normal. No S3. No murmur, gallop or regurgitation. ABDOMEN: Soft, nontender. Bowel sounds active. No rigidity. No rebound or guarding. No CVA tenderness. EXTREMITIES: No cyanosis, clubbing or pedal edema. MUSCULOSKELETAL: No joint swelling. NEUROLOGIC: Awake, alert. No focal deficit. LYMPHATIC: No lymph nodes palpable. SKIN: Intact. LABS: White count 34.69, hemoglobin 13.5, hematocrit 43.1, platelet count 147. Sodium 143, potassium 3.7, chloride 107, bicarb 28, BUN 14, creatinine 0.64, glucose 87. ASSESSMENT: 1. COPD EXACERBATION SECONDARY TO PNEUMONIA 2. LEUKOCYTOSIS MOST LIKELY FROM STEROIDS 3. MULTIPLE COMPRESSION DEFORMITIES IN THE BACK 4. MIGRAINE HEADACHES 5. CAD 6. HISTORY OF LUNG CANCER 7. DEPRESSION ANXIETY PLAN: 1. Continue Azactam and Vancomycin 2. Decrease Prednisone 3. Duonebs 4. Daily I & O's TIME SPENT: More than 35 minutes MTDD
--- NOTE | 2017-11-22 10:42 | DS ---
DATE OF SERVICE: 09/25/17 FINAL DIAGNOSIS: 1. COPD EXACERBATION 2. BRONCHITIS 3. HISTORY OF LUNG CANCER 4. HYPERTENSION 5. NEUROPATHY 6. HEPATITIS C, 1966 7. DJD SPINE 8. CHRONIC COMPRESSION DEFORMITIES 9. DEPRESSION/ANXIETY 10. CHRONIC PAIN SYNDROME 11. CHOLECYSTECTOMY 12. RENAL MASS 13. LAMINECTOMY DISCHARGE INSTRUCTIONS: 1. Discharge the patient home. 2. Followup in the [facility] on 10/03/17. MEDICATIONS AT DISCHARGE: Continue ProAir Myrbetriq Trazodone Cyclobenzeprine Neurontin Oxycodone NEW PRESCRIPTIONS: Omnicef 300 mg twice a day for four days Prednisone twice a day for five days DIET INSTRUCTIONS: Cardiac and Healthy ACTIVITY: As much as tolerated DISEASE SPECIFIC EDUCATION: COPD and pneumonia have been discussed, verbalized understanding. HOSPITAL COURSE: This is a 67-year-old female, who came to the emergency room with cough, congestion and shortness of breath. Despite giving many breathing treatments, still the patient was not feeling better so the patient was admitted to the hospital for COPD exacerbation and bronchitis, started on Vancomycin, Azactam, breathing treatment and steroids. With the steroids, white count went up to 66, 000 and 67,000, came down to 39, 34 and 19. ABG showed pH 7.455, pc02 34.9, p02 61. BUN and creatinine were normal. Hyperglycemia was seen most likely from steroids. Vancomycin trough levels were monitored. Gradually the patient was feeling better, did not have any problems. Cough and congestion were now resolving and repeat chest x-ray showed scarring in the right upper lobe. Otherwise no acute findings. At that time the patient was discharged home. TIME SPENT: MORE THAN 65 MINUTES MTDD
== END 2017-09-25 15:15 | disposition home or self-care (01) | DRG 202 ==
LOC: ED 17:34 → MEDSURG B 19:28
PROVIDERS: ADMIT Emergency Medicine; ATTEND Emergency Medicine
DX: J20.9 Acute bronchitis, unspecified (principal); J44.1 Chronic obstructive pulmonary disease with (acute) exacerbation; J45.998 Other asthma; F17.219 Nicotine dependence, cigarettes, with unspecified nicotine-induced disorders; Z85.118 Personal history of other malignant neoplasm of bronchus and lung; I10 Essential (primary) hypertension; G62.9 Polyneuropathy, unspecified; D72.828 Other elevated white blood cell count; B19.20 Unspecified viral hepatitis C without hepatic coma; M15.3 Secondary multiple arthritis; F41.8 Other specified anxiety disorders; G89.4 Chronic pain syndrome; N28.89 Other specified disorders of kidney and ureter; M80.08XS Age-related osteoporosis with current pathological fracture, vertebra(e), sequela
CPT/HCPCS: 36415; 80053; 80202; 81001; 82550; 82803; 83605; 84145; 84484; 85007; 85025; 87040; 87502; 87651; 93005; 93010; 94640; 96365; 96375; 99223; 99233; 99239; 99284

== ENCOUNTER 2017-10-19 08:45 | Outpatient (CLI) | payer OTHER ==
--- NOTE | 2017-10-19 09:16 | DI ---
EXAM: Two views of the chest. History: Chest pain. Comparison: Chest radiograph 09/24/2017 Findings: Heart size is within normal limits. The right upper lobe infiltrate or scarring is not si gnificantly changed. No developing opacities. No appreciable pleural fluid and no pneumothorax. Vi sualized osseous structures unchanged. Impression: No change in the right upper lobe infiltrate or scarring. No developing opacities.
== END 2017-10-19 08:46 | disposition home or self-care (01) ==
LOC: RAD 08:45
PROVIDERS: ATTEND Emergency Medicine
DX: R07.81 Pleurodynia (principal); J44.9 Chronic obstructive pulmonary disease, unspecified

== ENCOUNTER 2018-02-06 13:17 | Emergency (ER) ==
[2018-02-06 13:23] VITALS: BMI 18.3
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
[2018-02-06 15:01] VITALS: BP 137/71; TEMP 100.6
== END 2018-02-06 16:30 | disposition home or self-care (01) ==
LOC: ED 13:17
DX: S12.501A Unspecified nondisplaced fracture of sixth cervical vertebra, initial encounter for closed fracture (principal); F17.210 Nicotine dependence, cigarettes, uncomplicated
CPT/HCPCS: 99283

== ENCOUNTER 2018-02-11 09:31 | Emergency (ER) | payer OTHER ==
[2018-02-11 09:40] VITALS: BP 160/98; TEMP 98; BMI 18.1
--- NOTE | 2018-02-11 11:23 | CT ---
Exam: CT of the brain. Comparison: 02/23/2017. Reason for exam: Altered mental status. The findings: No acute intracranial hemorrhage, mass effect, ventricular dilatation, or territorial infarction. The quadrigeminal and ambient cisterns are patent. There is no extraaxial fluid collect ion. No acute intracranial hemorrhage, mass effect, ventricular dilatation, or territorial infarction. Mu cosal thickening is seen in the ethmoid sinuses. The quadrigeminal and ambient cisterns are patent. There is no extraaxial fluid collection. Parenchymal changes are seen consistent with chronic microv ascular disease Impression: 1. No acute intracranial findings. 2. Mucosal thickening in the ethmoid sinus may represent sinus disease. 3. Parenchymal changes are seen consistent with chronic microvascular disease
--- NOTE | 2018-02-11 11:23 | ED.PDOC ---
General ED Provider: Dr. OJ KING Chief Complaint: Altered Mental Status Stated Complaint: altered mental status Time Seen by Physician: 09:33 (arrived fully alert and orientated ) Mode of Arrival: Stretcher Information Source: EMT Exam Limitations: No limitations Primary Care Provider: TENISHA KIM Nursing and Triage Documentation Reviewed and Agree: Yes Does patient meet sepsis criteria?: No If yes, has appropriate treatment been initiated?: No System Inflammatory Response Syndrome: Not Applicable Sepsis Protocol: For patient's 13 years and over: Temp is 96.8 and below OR 101 and greater Pulse >90 BPM Resp >20/minute Acutely Altered Mental Status Are patient's symptoms suggestive of a new infection, such as: -Pneumonia -Skin, Soft Tissue -Endocarditis -UTI -Bone, Joint Infection -Implantable Device -Acute Abdominal Infection -Wound Infection -Meningitis -Blood Stream Catheter Infection -Unknown Neurological Complaint Exam - Altered Mental Status Complaint/Exam Current Mental Status: Agitation, Other (ARRIVED AOX3 ) Last Known Well: 1 DAY AGO Duration: RESOLVED UPON ARRIVAL Symptoms Are: Resolved Initial Severity: Mild Current Severity: None Eye Deviation Present: No Character: Reports: Agitation Aggravating: Reports: None Alleviating: Reports: Spontaneous resolution Associated Signs and Symptoms: Denies: Dizziness, Weakness, Headache, Fever, Illness, Nuchal rigidity, Seizure, Nausea, Vomiting, Recently depressed, Trauma Cardiac Risk Factors: Reports: Hypertension Carotid Bruit Present: No Glascow Coma Scale (see protocol): 15 Nystagmus Present: No Gag Reflex Present: Yes Meningeal Signs Positive: No Focal Weakness: Present: None Focal Sensory Loss: Present: None Gait: Normal Signs of Injury: Present: Normal findings Differential Diagnoses: Hypoxia, Intoxication, Intracranial Bleed, Metabolic Disorder, Hypoglycemia Review of Systems - Review Of Systems Constitutional: Reports: No symptoms Eyes: Reports: No symptoms Ears, Nose, Mouth, Throat: Reports: No symptoms Respiratory: Reports: No symptoms Cardiac: Reports: No symptoms GI: Reports: No symptoms : Reports: No symptoms Musculoskeletal: Reports: No symptoms Skin: Reports: No symptoms Neurological: Reports: No symptoms Endocrine: Reports: No symptoms Hematologic/Lymphatic: Reports: No symptoms All Other Systems: Reviewed and Negative Past Medical History - Past Medical History Previously Healthy: No Endocrine: Reports: None Cardiovascular: Reports: None Respiratory: Reports: COPD, Asthma Hematological: Reports: Anemia, Other (Von Willebrand's Dz) Gastrointestinal: Reports: Liver (Hepatitis C) Genitourinary: Reports: Kidney stones Neuro/Psych: Reports: Anxiety, Depression, Parkinson's Musculoskeletal: Reports: None, Other Cancer: Reports: Lung (CA right lung: October 15, 2014 appt with oncologist in [place]) Last Menstrual Period: menopause Other Pertinent Past Medical History: necrotizing fascitis right butt - Surgical History General Surgical History: Reports: , Cholecystectomy, Orthopedic (hip femur(x6), right knee, mandible surgery) - Family History Family History: Reports: Unknown - Social History Smoking Status: Current some day smoker, Light tobacco smoker Hx Substance Use: Yes (Smokes [place].) Alcohol Screening: None - Immunizations Influenza Vaccine within 12 Months: No Pneumococcal Vaccine up to Date: No Physical Exam - Physical Exam Appearance: Well-appearing, No pain distress, Well-nourished Eyes: SAMEERA, EOMI, Conjunctiva clear ENT: Ears normal, Nose normal, Oropharynx normal Respiratory: Airway patent, Breath sounds clear, Breath sounds equal, Respirations nonlabored Cardiovascular: RRR, Pulses normal, No rub, No murmur GI/: Soft, Nontender, No masses, Bowel sounds normal, No Organomegaly Musculoskeletal: Normal strength, ROM intact, No edema, No calf tenderness Skin: Warm, Dry, Normal color Neurological: Sensation intact, Motor intact, Reflexes intact, Cranial nerves intact, Alert, Oriented Psychiatric: Affect appropriate, Mood appropriate Interpretation - Radiology Interpretation Radiology Interpretation By: Radiologist Radiology Results: No acute changes Re-Evaluation - Re-Evaluation Time of Re-Evaluation: 10:30 Status: Improved Vital Signs Stable: Yes Pain Level: 0 Appearance: NAD Lungs: Clear Skin: Warm and Dry Neuro: Alert and Oriented X3 CV: RRR - Re-Evaluation Time of Re-Evaluation: 11:23 Status: Improved Pain Level: 0 Appearance: NAD Skin: Warm and Dry Neuro: Alert and Oriented X3 CV: RRR (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 ABLE TO REASON) Critical Care Note - Critical Care Note Total Time (mins): 0 Course - Course Orders, Labs, Meds: Orders Category Date Time Status EKG-(ED ONLY) Stat CARDIO 02/11/18 09:43 Completed URINALYSIS C & S IF INDICATED Stat LAB 02/11/18 09:42 Uncollected CHEST, 1V AP ONLY Stat RADS 02/11/18 09:[address] HEAD W/O CONTRAST Stat RADS 02/11/18 09:42 Completed Vital Signs: Temp Pulse Resp BP Pulse Ox 02/11/18 09:31 98 F 67 16 160/98 H 95 Departure - Departure Time of Disposition: 11:33 (pt is refusing blood work , ABG AND CHEST FILM , WITH SMITH MILLER TRIED TO PERSUDE PT TO HAVE THE STUDIES PT FULLY ALERT AND ABLE TO UNDERDSTAND REFUSED TO GET THE STUDIES DONE ,DECIDED TO LEAVE AMA.) Disposition: AMA Discharge Problem: Altered mental status Instructions: Altered Mental Status (ED), Anxiety (ED) Condition: Good Pt referred to PMD for follow-up: Yes IPMP verified?: No Additional Instructions: Please call your Family Physician as soon as possible to schedule a follow-up appointment. Allergies/Adverse Reactions: Allergies varenicline tartrate [From Chantix] Allergy (Severe, Verified 02/11/18 09:42) hypertension ketorolac tromethamine [From Toradol] Adverse Reaction (Mild, Verified 02/11/18 09:42) acetaminophen [From Fioricet] Adverse Reaction (Verified 02/11/18 09:42) butalbital [From Fioricet] Adverse Reaction (Verified 02/11/18 09:42) caffeine [From Fioricet] Adverse Reaction (Verified 02/11/18 09:42) morphine Adverse Reaction (Verified 02/11/18 09:42) nalbuphine HCl [From Nubain] Adverse Reaction (Verified 02/11/18 09:42) ondansetron HCl [From Zofran (as hydrochloride)] Adverse Reaction (Verified 09:42) pentazocine lactate [From Talwin] Adverse Reaction (Verified 02/11/18 09:42) propoxyphene napsylate [From Darvocet-N 100] Adverse Reaction (Verified 09:42) Home Medications: Ambulatory Orders Gabapentin [Neurontin] 800 mg PO QID 09/25/14 Oxycodone HCl/Acetaminophen [Percocet 10-325 Mg Tablet] 1 each PO QID 05/31/17 Cyclobenzaprine HCl 10 mg PO PRN PRN 06/19/17 Disposition Discussed With: Patient
== END 2018-02-11 11:35 | disposition left against medical advice (07) ==
LOC: ED 09:31
DX: R41.82 Altered mental status, unspecified (principal); F41.9 Anxiety disorder, unspecified; I10 Essential (primary) hypertension; F17.210 Nicotine dependence, cigarettes, uncomplicated; G20 Parkinson's disease; Z85.118 Personal history of other malignant neoplasm of bronchus and lung; D68.0 Von Willebrand disease; Z79.899 Other long term (current) drug therapy
CPT/HCPCS: 93005; 93010; 99284

== ENCOUNTER 2018-06-18 11:13 | Outpatient (CLI) | END 2018-06-18 11:14 | disposition home or self-care (01) | LOC: RHC-LAB 11:13 | PROVIDERS: ATTEND Nurse Practitioner Family | DX: J44.9 Chronic obstructive pulmonary disease, unspecified (principal); I10 Essential (primary) hypertension; F41.1 Generalized anxiety disorder | CPT/HCPCS: 36415; 80053; 80061; 84443; 85007; 85025 ==

== ENCOUNTER 2018-07-10 15:43 | Outpatient (CLI) | END 2018-07-10 15:44 | disposition home or self-care (01) | LOC: RHC-LAB 15:43 | PROVIDERS: ATTEND Nurse Practitioner Family | DX: J02.9 Acute pharyngitis, unspecified (principal); R05 Cough | CPT/HCPCS: 87502; 87651 ==

== ENCOUNTER 2018-07-23 12:02 | Emergency (ER) | payer OTHER ==
[2018-07-23 12:07] VITALS: BP 127/89; TEMP 98.5; BMI 17.6
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
--- NOTE | 2018-07-23 13:42 | DI ---
Exam: Single view of the pelvis with T views of the right hip and two views of the left hip. Comparison: CT abdomen pelvis performed 11/09/2016. Reason for exam: Pain with trauma. FINDINGS: The pelvic ring appears intact. No acute fracture or dislocation is seen in either hip. There is moderate degenerative disease bilaterally with joint space narrowing and osteophyte formatio n. Large stool burden is seen throughout the colon. An anastomotic suture line is seen within the p south. Impression: 1. No acute fracture is seen within the pelvis or either hip. 2. 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
--- NOTE | 2018-07-23 13:44 | DI ---
Exam: Four views of the left knee. Comparison: None available. Reason for exam: Trauma. FINDINGS: No acute fracture or malalignment. There is narrowing of the medial joint space with mild spurring of the tibial spine. No large effusion is seen. No unexplained calcific soft tissue densi ty or radiopaque retained foreign body. Impression: No acute fracture or dislocation is seen in the left knee.
--- NOTE | 2018-07-23 13:45 | DI ---
EXAM: Five views of the lumbar spine. History: Lower back trauma. Findings: Age indeterminate mild compression deformity involving the superior endplate of L1. No sub luxation. Mild multilevel disc space narrowing. A [id number] amount colonic stool. Postsurg ical changes within the pelvis. Cholecystectomy clips. 2.6 cm oval radiopaque object seen projectin g over the distal esophagus. Atherosclerotic vascular calcifications. Impression: 1. Age indeterminate mild compression deformity involving superior endplate of L1. 2. Atherosclerotic vascular disease. 3. Degenerative disc disease. 4. Oval radiopaque object seen projecting over the distal esophagus could be external to the patient or swallowed foreign body.
[2018-07-23] MEDS ORDERED: NORCO 5-325 PO STA (14:02)
== END 2018-07-23 13:53 | disposition home or self-care (01) ==
LOC: ED 12:02
DX: S32.010A Wedge compression fracture of first lumbar vertebra, initial encounter for closed fracture (principal); S39.012A Strain of muscle, fascia and tendon of lower back, initial encounter; S76.012A Strain of muscle, fascia and tendon of left hip, initial encounter; M25.562 Pain in left knee; W54.1XXA Struck by dog, initial encounter; W19.XXXA Unspecified fall, initial encounter; F17.210 Nicotine dependence, cigarettes, uncomplicated
CPT/HCPCS: 99283

== ENCOUNTER 2018-07-30 18:13 | Emergency (ER) ==
[2018-07-30 18:21] VITALS: BP 145/86; TEMP 98.9; BMI 17.5
--- NOTE | 2018-07-30 19:46 | DI ---
Exam: Single view chest x-ray. Date: 07/30/2018. Comparison: 10/19/2017. HISTORY: Weakness and blurred vision. FINDINGS: No acute osseous abnormalities are seen. There is redemonstration of an area of scarring in the right upper lobe that appears slightly enlarged when compared to the earlier study. The lungs are hyperinflated. Cardiac silhouette and pulmonary vasculature are within normal limits. Impression: Compared with 10/19/2017. Emphysematous changes with an area of linear scarring in the right upper lobe that appears slightly enlarged when compared to the earlier study. A follow-up ches t x-ray in one - 3 months could be performed to determine if this is a real finding. Alternatively c hest CT could also be performed.
--- NOTE | 2018-07-30 19:48 | CT ---
EXAM: CT Head HISTORY: Blurred vision COMPARISON: 02/11/2018 TECHNIQUE: CT head performed without contrast FINDINGS: There is no mass effect, midline shift, or intracranial hemmorhage. Chin white differenti ation is preserved. There is no extra-axial collection. The ventricles, sulci, and basal cisterns a re patent and symmetric. There is mild chronic ischemic disease of the white matter and cerebral vol ume loss. There is no depressed calvarial fracture. The mastoid air cells are clear. The visualized paranasal sinuses are clear. There are intracranial atherosclerotic calcifications. IMPRESSION: 1. No acute intracranial abnormality. 2. Mild chronic ischemic disease of the white matter and cerebral volume loss.
--- NOTE | 2018-07-30 19:53 | ED.PDOC ---
General ED Provider: Dr. MARYAM FERGUSON-ER Chief Complaint: Weakness Stated Complaint: im weak===i am so tired---also mild coronel and blurred vision Time Seen by Physician: 19:00 Information Source: Patient Exam Limitations: No limitations Primary Care Provider: TENISHA KIM Nursing and Triage Documentation Reviewed and Agree: Yes Does patient meet sepsis criteria?: No System Inflammatory Response Syndrome: Not Applicable Sepsis Protocol: For patient's 13 years and over: Temp is 96.8 and below OR 101 and greater Pulse >90 BPM Resp >20/minute Acutely Altered Mental Status Are patient's symptoms suggestive of a new infection, such as: -Pneumonia -Skin, Soft Tissue -Endocarditis -UTI -Bone, Joint Infection -Implantable Device -Acute Abdominal Infection -Wound Infection -Meningitis -Blood Stream Catheter Infection -Unknown Miscellaneous Complaint Exam - Complex/Multi-System Complaint/Exam Onset/Duration: 24hrs Symptoms Are: Still present Initial Severity: Mild Current Severity: None Location of Pain: headache...very mild Associated Signs and Symptoms: Reports: Weakness, Headache, Dysuria. Denies: Decreased responsiveness, Confusion, Agitation, Dizziness, Syncope, Short of air , Cough, Wheezing, Hemoptysis, Chest pain, Palpitations, Edema, Nausea, Vomiting , Diarrhea, Abdominal pain, Back pain, Hematemesis Recent Echo/LV Function: No Respiratory Distress: None Tachypnea Present: No Stridor Present: No Abdominal Findings: Present: Normal findings Glascow Coma Scale (see protocol): 15 Meningeal Signs Positive: No Focal Weakness: Present: None Focal Sensory Loss: Present: None Gait: Normal Gag Reflex Present: No Babinski Sign: Negative Right, Negative Left Skin Findings: Present: Normal findings Joint Swelling Present: No In-Dwelling Device Present: No Differential Diagnosis: Metabolic Abnormality, UTI Quality Indicator For Non-Traumatic Chest Pain/Syncope: EKG Performed Review of Systems - Review Of Systems Constitutional: Reports: Weakness Eyes: Reports: No symptoms Ears, Nose, Mouth, Throat: Reports: No symptoms Respiratory: Reports: No symptoms Cardiac: Reports: No symptoms GI: Reports: No symptoms : Reports: No symptoms Musculoskeletal: Reports: No symptoms Skin: Reports: No symptoms Neurological: Reports: No symptoms Endocrine: Reports: No symptoms Hematologic/Lymphatic: Reports: No symptoms All Other Systems: Reviewed and Negative Past Medical History - Past Medical History Previously Healthy: No Endocrine: Reports: None Cardiovascular: Reports: None Respiratory: Reports: COPD, Asthma Hematological: Reports: Anemia, Other (Von Willebrand's Dz) Gastrointestinal: Reports: Liver (Hepatitis C) Genitourinary: Reports: Kidney stones Neuro/Psych: Reports: Anxiety, Depression, Parkinson's Musculoskeletal: Reports: None, Other Cancer: Reports: Lung (CA right lung: October 15, 2014 appt with oncologist in [place]) Last Menstrual Period: menoapuse Other Pertinent Past Medical History: necrotizing fascitis right butt - Surgical History General Surgical History: Reports: , Cholecystectomy, Orthopedic (hip femur(x6), right knee, mandible surgery) - Family History Family History: Reports: Unknown - Social History Smoking Status: Current some day smoker, Light tobacco smoker Hx Substance Use: Yes (Smokes [place].) Alcohol Screening: None - Immunizations Influenza Vaccine within 12 Months: No Pneumococcal Vaccine up to Date: No Physical Exam - Physical Exam Appearance: Well-appearing Eyes: SAMEERA ENT: Ears normal, Nose normal, Oropharynx normal Neck: Supple Respiratory: Airway patent, Breath sounds clear, Breath sounds equal, Respirations nonlabored Cardiovascular: RRR, Pulses normal, No rub, No murmur GI/: Soft, Nontender, No masses, Bowel sounds normal, No Organomegaly Musculoskeletal: Normal strength Skin: Warm, Dry, Normal color Neurological: Sensation intact, Motor intact, Reflexes intact, Cranial nerves intact, Alert, Oriented Psychiatric: Affect appropriate, Mood appropriate Interpretation - Radiology Interpretation Radiology Interpretation By: Radiologist Radiology Results: Negative Exam Interpreted: CT Scan - EKG Interpretation Time of EKG #1: 19:54 Rate: Normal Rhythm: Sinus Ectopy: None [place]: NL ST Segment: Normal Interpretation: nsr Critical Care Note - Critical Care Note Total Time (mins): 0 Course - Course Hematology/Chemistry: 07/30/18 19:05 07/30/18 19:05 Orders, Labs, Meds: Lab Review 07/30/18 07/30/18 07/30/18 18:44 18:47 18:52 WBC RBC Hgb Hct MCV MCH MCHC RDW Coeff of Krista Plt Count Immature Gran % (Auto) Neut % (Auto) Lymph % (Auto) [place] % (Auto) Eos % (Auto) Baso % (Auto) Immature Gran # (Auto) Neut # (Auto) Lymph # (Auto) [place] # (Auto) Eos # (Auto) Baso # (Auto) Puncture Site Lb O2 Saturation 92.0 L ABG pH 7.352 ABG pCO2 48.0 H ABG pO2 68.0 L ABG HCO3 26.6 H ABG Total CO2 28 ABG Base Excess 1 FiO2 % 21.0 Sodium Potassium Chloride Carbon Dioxide Anion Gap BUN Creatinine Estimated GFR (MDRD) BUN/Creatinine Ratio Glucose Hemoglobin A1c Calcium Total Bilirubin AST ALT Alkaline Phosphatase Total Creatine Kinase Troponin I Total Protein Albumin Globulin Albumin/Globulin Ratio Urine Color Yellow Urine Clarity Cloudy Urine pH 5.5 Ur Specific [place] 1.020 Urine Protein Trace Urine Glucose (UA) Negative Urine Ketones Negative Urine Blood Negative Urine Nitrite Positive Urine Bilirubin Negative Urine Urobilinogen 0.2 Ur Leukocyte Esterase 2+ Urine Microscopic WBC 30-50 Ur Squamous Epith Cells 2-5 Amorphous Sediment Trace Urine Bacteria 2+ Influ A Molecular Assay Negative by naat Influ B Molecular Assay Negative by naat 07/30/18 07/30/18 07/30/18 19:05 19:05 19:05 WBC 19.92 H RBC 4.48 Hgb 13.1 Hct 43.3 MCV 96.7 MCH 29.2 MCHC 30.3 L RDW Coeff of Krista 16.8 H Plt Count 220 Immature Gran % (Auto) 4.1 Neut % (Auto) 33.1 Lymph % (Auto) 11.3 [place]oke % (Auto) 50.9 H Eos % (Auto) 0.2 Baso % (Auto) 0.4 Immature Gran # (Auto) 0.8 Neut # (Auto) 6.6 Lymph # (Auto) 2.3 [place]oke # (Auto) 10.1 H Eos # (Auto) 0.0 Baso # (Auto) 0.1 Puncture Site O2 Saturation ABG pH ABG pCO2 ABG pO2 ABG HCO3 ABG Total CO2 ABG Base Excess FiO2 % Sodium 140.0 Potassium 4.10 Chloride 104.8 Carbon Dioxide 27.3 Anion Gap 12.00 BUN 14.3 Creatinine 0.78 Estimated GFR (MDRD) 73.00 BUN/Creatinine Ratio 18.33 Glucose 113.8 H Hemoglobin A1c Calcium 9.46 Total Bilirubin 0.36 AST 24.2 ALT 13.7 Alkaline Phosphatase 101.8 Total Creatine Kinase 83.6 Troponin I < 0.012 Total Protein 7.05 Albumin 3.97 Globulin 3.08 Albumin/Globulin Ratio 1.28 Urine Color Urine Clarity Urine pH Ur Specific [place] Urine Protein Urine Glucose (UA) Urine Ketones Urine Blood Urine Nitrite Urine Bilirubin Urine Urobilinogen Ur Leukocyte Esterase Urine Microscopic WBC Ur Squamous Epith Cells Amorphous Sediment Urine Bacteria Influ A Molecular Assay Influ B Molecular Assay 07/30/18 19:05 WBC RBC Hgb Hct MCV MCH MCHC RDW Coeff of Krista Plt Count Immature Gran % (Auto) Neut % (Auto) Lymph % (Auto) [place] % (Auto) Eos % (Auto) Baso % (Auto) Immature Gran # (Auto) Neut # (Auto) Lymph # (Auto) [place] # (Auto) Eos # (Auto) Baso # (Auto) Puncture Site O2 Saturation ABG pH ABG pCO2 ABG pO2 ABG HCO3 ABG Total CO2 ABG Base Excess FiO2 % Sodium Potassium Chloride Carbon Dioxide Anion Gap BUN Creatinine Estimated GFR (MDRD) BUN/Creatinine Ratio Glucose Hemoglobin A1c 5.51 Calcium Total Bilirubin AST ALT Alkaline Phosphatase Total Creatine Kinase Troponin I Total Protein Albumin Globulin Albumin/Globulin Ratio Urine Color Urine Clarity Urine pH Ur Specific [place] Urine Protein Urine Glucose (UA) Urine Ketones Urine Blood Urine Nitrite Urine Bilirubin Urine Urobilinogen Ur Leukocyte Esterase Urine Microscopic WBC Ur Squamous Epith Cells Amorphous Sediment Urine Bacteria Influ A Molecular Assay Influ B Molecular Assay Orders Category Date Time Status ABG DRAW REQUEST Stat CARDIO 07/30/18 18:44 Completed EKG-(ED ONLY) Stat CARDIO 07/30/18 18:44 Completed ABG Stat LAB 07/30/18 18:44 Completed CBC W/ AUTO DIFF Stat LAB 07/30/18 19:05 Completed COMPREHENSIVE METABOLIC PANEL Stat LAB 07/30/18 19:05 Completed CREATINE KINASE Stat LAB 07/30/18 19:05 Completed FLU A/B MOLECULAR Stat LAB 07/30/18 18:47 Completed HEMOGLOBIN A1C Stat LAB 07/30/18 19:05 Completed RAPID STREP SCREEN [MOLECULAR GROUP A STREP] Stat LAB 07/30/18 18:47 Completed TROPONIN I Stat LAB 07/30/18 19:05 Completed URINALYSIS C & S IF INDICATED Stat LAB 07/30/18 18:52 Completed URINE CULTURE Stat LAB 07/30/18 19:04 Received Amoxicillin/Potassium Clav [Augmentin 875-125 mg Tab] MEDS 07/30/18 20:36 Stat 1 tab PO ONCE STA CT HEAD W/O CONTRAST Stat RADS 07/30/18 18:45 Completed CXR [CHEST, 1V AP ONLY] Stat RADS 07/30/18 18:45 Completed Vital Signs: Temp Pulse Resp BP Pulse Ox 07/30/18 18:16 98.9 F 92 H 18 145/86 H 92 L Departure - Departure Time of Disposition: 20:37 Disposition: HOME SELF-CARE Discharge Problem: UTI (urinary tract infection) Qualifiers: Urinary tract infection type: site unspecified Hematuria presence: without hematuria Qualified Code(s): N39.0 - Urinary tract infection, site not specified Instructions: Urinary Tract Infection in Women (ED) Condition: Good Pt referred to PMD for follow-up: Yes IPMP verified?: No Additional Instructions: augmentin 875mg bid x 7 days---f/u with pcp in a few days Allergies/Adverse Reactions: Allergies varenicline tartrate [From Chantix] Allergy (Severe, Verified 07/23/18 12:07) hypertension ketorolac tromethamine [From Toradol] Adverse Reaction (Mild, Verified 07/23/18 12:07) acetaminophen [From Fioricet] Adverse Reaction (Verified 07/23/18 12:07) butalbital [From Fioricet] Adverse Reaction (Verified 07/23/18 12:07) caffeine [From Fioricet] Adverse Reaction (Verified 07/23/18 12:07) morphine Adverse Reaction (Verified 07/23/18 12:07) nalbuphine HCl [From Nubain] Adverse Reaction (Verified 07/23/18 12:07) ondansetron HCl [From Zofran (as hydrochloride)] Adverse Reaction (Verified 12:07) pentazocine lactate [From Talwin] Adverse Reaction (Verified 07/23/18 12:07) propoxyphene napsylate [From Darvocet-N 100] Adverse Reaction (Verified 12:07) Home Medications: Ambulatory Orders Gabapentin [Neurontin] 800 mg PO QID 09/25/14 Cyclobenzaprine HCl 10 mg PO PRN PRN 06/19/17 Hydrocodone/Acetaminophen [Hydrocodone-Acetamin 10-325 Mg] 1 each PO QID Disposition Discussed With: Patient, Family
[2018-07-30] MEDS ORDERED: AUGMENTIN 875-125 MG TAB PO STA (20:36)
== END 2018-07-30 20:48 | disposition home or self-care (01) ==
LOC: ED 18:13
DX: N39.0 Urinary tract infection, site not specified (principal); R53.1 Weakness; R51 Headache; Z87.442 Personal history of urinary calculi; F17.210 Nicotine dependence, cigarettes, uncomplicated; G20 Parkinson's disease; Z85.118 Personal history of other malignant neoplasm of bronchus and lung
CPT/HCPCS: 36415; 80053; 81001; 82550; 82803; 83036; 84484; 85025; 87086; 87186; 87502; 87651; 93005; 93010; 99283

== ENCOUNTER 2018-08-05 14:19 | Emergency (ER) | payer OTHER ==
[2018-08-05 14:29] VITALS: BP 95/62; TEMP 98.9; BMI 17.4
[2018-08-05] MEDS: DECADRON 4 MG/ML SDV IM STA (17:11)
--- NOTE | 2018-08-05 17:19 | ED.PDOC ---
General ED Provider: Dr. OJ KING Chief Complaint: Shortness of Air Stated Complaint: FLU LIKE SYMPTOMS Time Seen by Physician: 14:30 Mode of Arrival: Walk-In Information Source: Patient Exam Limitations: No limitations Primary Care Provider: TENISHA KIM Nursing and Triage Documentation Reviewed and Agree: Yes Does patient meet sepsis criteria?: No If yes, has appropriate treatment been initiated?: No System Inflammatory Response Syndrome: Not Applicable Sepsis Protocol: For patient's 13 years and over: Temp is 96.8 and below OR 101 and greater Pulse >90 BPM Resp >20/minute Acutely Altered Mental Status Are patient's symptoms suggestive of a new infection, such as: -Pneumonia -Skin, Soft Tissue -Endocarditis -UTI -Bone, Joint Infection -Implantable Device -Acute Abdominal Infection -Wound Infection -Meningitis -Blood Stream Catheter Infection -Unknown Respiratory Complaint Exam - Respiratory Complaint/Exam Symptoms Are: Still present Timing: Intermittent Initial Severity: Mild Current Severity: Mild Location: Nose, Throat, Chest Character: Reports: Non-productive cough Aggravating: Reports: None Alleviating: Reports: Spontaneous resolution Associated Signs and Symptoms: Reports: Fever, Chills, Wheezing, URI. Denies: Rapid breathing, Dyspnea, Chest pain, Pleuritic chest pain, Hemoptysis, Dizziness, Calf pain, Calf swelling, Edema, Nasal congestion, Hoarseness, Sinus discomfort, Vomiting, Sore throat, Weight loss, Decreased oral intake, Increased thirst, Increased appetite, Increased urination Related History: Reports: Similar episode History of Healthcare-Acquired Pneumonia: No Related Surgical History: Reports: None Pulmonary Embolism Risk Factors: None Cardiac Risk Factors: Reports: None Pseudomonas Risk Factors: Reports: None Tuberculosis Risk Factors: Reports: None Status Asthmaticus Risk Factors: Reports: None Home Oxygen Use: No Recent Stress Test: No Recent Echo/LV Function: No Current Antibiotic Use: No Current Asthma Medication Use: No Respiratory Distress: None Inadequate Respiratory Effort: No Dysphagia Present: No Stridor Present: No JVD Present: No Accessory Muscle Use: No Retractions: Not Present Diminished Breath Sounds: No Sinus Tenderness: None Grunting Respirations: No Kussmaul Respirations: No Differential Diagnoses: Pneumonia, Bronchitis Quality Indicators For Pneumonia: Vital signs, Mental status assessed Review of Systems - Review Of Systems Constitutional: Reports: No symptoms Eyes: Reports: No symptoms Ears, Nose, Mouth, Throat: Reports: No symptoms Respiratory: Reports: Cough Cardiac: Reports: No symptoms GI: Reports: No symptoms : Reports: No symptoms Musculoskeletal: Reports: No symptoms Skin: Reports: No symptoms Neurological: Reports: No symptoms Endocrine: Reports: No symptoms Hematologic/Lymphatic: Reports: No symptoms All Other Systems: Reviewed and Negative Past Medical History - Past Medical History Previously Healthy: No Endocrine: Reports: None Cardiovascular: Reports: None Respiratory: Reports: COPD, Asthma Hematological: Reports: Anemia, Other (Von Willebrand's Dz) Gastrointestinal: Reports: Liver (Hepatitis C) Genitourinary: Reports: Kidney stones Neuro/Psych: Reports: Anxiety, Depression, Parkinson's Musculoskeletal: Reports: None, Other Cancer: Reports: Lung (CA right lung: October 15, 2014 appt with oncologist in [place]) Last Menstrual Period: unknown Other Pertinent Past Medical History: necrotizing fascitis right butt - Surgical History General Surgical History: Reports: , Cholecystectomy, Orthopedic (hip femur(x6), right knee, mandible surgery) - Family History Family History: Reports: Unknown - Social History Smoking Status: Current every day smoker, Light tobacco smoker Hx Substance Use: Yes (Smokes [place].) Alcohol Screening: None - Immunizations Influenza Vaccine within 12 Months: No Pneumococcal Vaccine up to Date: No Physical Exam - Physical Exam Appearance: Well-appearing, No pain distress, Well-nourished Eyes: SAMEERA, EOMI, Conjunctiva clear ENT: Ears normal, Nose normal, Oropharynx normal Respiratory: Airway patent, Breath sounds clear, Breath sounds equal, Respirations nonlabored Cardiovascular: RRR, Pulses normal, No rub, No murmur GI/: Soft, Nontender, No masses, Bowel sounds normal, No Organomegaly Musculoskeletal: Normal strength, ROM intact, No edema, No calf tenderness Skin: Warm, Dry, Normal color Neurological: Sensation intact, Motor intact, Reflexes intact, Cranial nerves intact, Alert, Oriented Psychiatric: Affect appropriate, Mood appropriate Critical Care Note - Critical Care Note Total Time (mins): 0 Course - Course Hematology/Chemistry: 08/05/18 15:50 08/05/18 15:50 Orders, Labs, Meds: Lab Review 08/05/18 08/05/18 08/05/18 15:40 15:50 15:50 WBC 12.28 H RBC 4.53 Hgb 13.2 Hct 44.4 MCV 98.0 MCH 29.1 MCHC 29.7 L RDW Coeff of Krista 17.5 H Plt Count 298 Neutrophils % (Manual) 25.0 L Band Neutrophils % 9.0 H Lymphocytes % (Manual) 15.0 Monocytes % (Manual) 38.0 H Metamyelocytes % 4.0 H Reactive Lymphocytes 9.0 H Anisocytosis Not present Sodium 139.9 Potassium 3.93 Chloride 104.1 Carbon Dioxide 29.1 Anion Gap 10.63 BUN 10.0 Creatinine 0.87 Estimated GFR (MDRD) 64.00 BUN/Creatinine Ratio 11.49 Glucose 102.0 Calcium 8.67 Total Bilirubin 0.32 AST 28.3 ALT 12.2 Alkaline Phosphatase 83.5 Total Creatine Kinase 35.6 Troponin I < 0.012 Total Protein 6.95 Albumin 3.86 Globulin 3.09 Albumin/Globulin Ratio 1.24 Influ A Molecular Assay Negative by naat Influ B Molecular Assay Negative by naat Orders Category Date Time Status EKG-(ED ONLY) Stat CARDIO 08/05/18 15:33 Completed CBC W/ AUTO DIFF Stat LAB 08/05/18 15:50 Completed COMPREHENSIVE METABOLIC PANEL Stat LAB 08/05/18 15:50 Completed CREATINE KINASE Stat LAB 08/05/18 15:50 Completed FLU A/B MOLECULAR Stat LAB 08/05/18 15:40 Completed MANUAL DIFFERENTIAL Stat LAB 08/05/18 15:50 Completed MOLECULAR GROUP A STREP Stat LAB 08/05/18 15:40 Completed TROPONIN I Stat LAB 08/05/18 15:50 Completed Dexamethasone 4 mg/ml Inj [Decadron 4 mg/ml Sdv] MEDS 08/05/18 16:43 Discontinued 8 mg IM ONCE STA CT CHEST W/O CONTRAST Stat RADS 08/05/18 16:42 Taken Medications Discontinued Medications Generic Name Dose Route Start Last Admin Trade Name Freq PRN Reason Stop Dose Admin Dexamethasone Sodium Phosphate 8 mg 08/05/18 16:43 08/05/18 17:11 Decadron 4 Mg/Ml Sdv IM 08/05/18 16:44 8 mg ONCE STA Administration Vital Signs: Temp Pulse Resp BP Pulse Ox 08/05/18 17:13 96 H 20 92 L 08/05/18 14:19 98.9 F 98 H 20 95/62 86 L Departure - Departure Time of Disposition: 18:00 Disposition: HOME SELF-CARE Discharge Problem: Bronchitis, Viral syndrome Instructions: Viral Syndrome (ED), Acute Bronchitis (ED) Condition: Good Pt referred to PMD for follow-up: Yes IPMP verified?: No Additional Instructions: Please call your Family Physician as soon as possible to schedule a follow-up appointment. Prescriptions: Cefdinir [Omnicef] 300 mg PO Q12HR 7 Days #14 capsule Allergies/Adverse Reactions: Allergies varenicline tartrate [From Chantix] Allergy (Severe, Verified 08/05/18 14:29) hypertension ketorolac tromethamine [From Toradol] Adverse Reaction (Mild, Verified 08/05/18 14:29) acetaminophen [From Fioricet] Adverse Reaction (Verified 08/05/18 14:29) butalbital [From Fioricet] Adverse Reaction (Verified 08/05/18 14:29) caffeine [From Fioricet] Adverse Reaction (Verified 08/05/18 14:29) morphine Adverse Reaction (Verified 08/05/18 14:29) nalbuphine HCl [From Nubain] Adverse Reaction (Verified 08/05/18 14:29) ondansetron HCl [From Zofran (as hydrochloride)] Adverse Reaction (Verified 04/15 14:29) pentazocine lactate [From Talwin] Adverse Reaction (Verified 08/05/18 14:29) propoxyphene napsylate [From Darvocet-N 100] Adverse Reaction (Verified 14:29) Home Medications: Ambulatory Orders Gabapentin [Neurontin] 800 mg PO QID 09/25/14 Cyclobenzaprine HCl 10 mg PO PRN PRN 06/19/17 Hydrocodone/Acetaminophen [Hydrocodone-Acetamin 10-325 Mg] 1 each PO QID Cefdinir [Omnicef] 300 mg PO Q12HR 7 Days #14 capsule 08/05/18 Solifenacin Succinate [Vesicare] 10 mg PO BEDTIME 08/05/18
--- NOTE | 2018-08-05 18:06 | CT ---
EXAM: CT chest without contrast TECHNIQUE: Helical axial CT of the chest was performed without contrast with coronal and sagittal rec onstructions. COMPARISON: CT chest from 09/20/[address] chest from 02/14/2017 HISTORY: Cough FINDINGS: Lung parenchyma: There is an area of consolidation in the right upper lobe which is somewhat more tan arent compared to the previous examination. It is considerably more apparent compared to 02/22/2017. There is emphysematous change. There is no effusion or failure. There is some linear atelectasis and/or scarring in the lung bases. Mediastinum: No pathologic hilar or mediastinal adenopathy. There are advanced coronary calcificatio ns. There is no pericardial effusion. There is calcific atherosclerosis of the aorta. There is no ao rtic aneurysm. Upper Abdomen: No focal or acute abnormality. There are bilateral hyperdense renal cysts. There has been prior cholecystectomy. Osseous structures: Nothing acute. There is an old L1 compression fracture. There is also an old T7 and T6 compression fracture. There are multiple small lower cervical lymph nodes identified bilaterally. The thyroid gland appear s unremarkable IMPRESSION: 1. Increasing consolidation in the right upper lobe as described. Although this may be due to progr essive fibrosis, underlying neoplastic etiology cannot be entirely ruled out. PET scan may be helpfu l to further evaluate. 2. Multiple small lymph nodes in the lower cervical area bilaterally. This appearance is somewhat m ore apparent compared to prior. Neck CT may be helpful to further evaluate. 3. Emphysema.
== END 2018-08-05 18:49 | disposition home or self-care (01) ==
LOC: ED 14:19
DX: R06.02 Shortness of breath (principal); R50.9 Fever, unspecified; R06.2 Wheezing; J06.9 Acute upper respiratory infection, unspecified; R05 Cough; Z72.0 Tobacco use; J40 Bronchitis, not specified as acute or chronic; B34.9 Viral infection, unspecified
CPT/HCPCS: 36415; 80053; 82550; 84484; 85007; 85025; 87502; 87651; 93005; 93010; 96372; 99283

== ENCOUNTER 2018-09-05 09:50 | Emergency (ER) | payer OTHER ==
[2018-09-05 09:52] VITALS: BP 139/88; TEMP 99.3; BMI 22.7
--- NOTE | 2018-09-05 10:13 | ED.PDOC ---
General ED Provider: Dr. MARYAM SALAZAR Chief Complaint: Back Pain Stated Complaint: Upper Back Pain. Describes pain as aching and sharp radiating down to her lumbar spine region on RT. In additon complains of SOB and chest congestion with dyspnea worsening with activity. Time Seen by Physician: 09:50 Mode of Arrival: Walk-In Information Source: Patient Primary Care Provider: TENISHA KIM Nursing and Triage Documentation Reviewed and Agree: Yes Does patient meet sepsis criteria?: No System Inflammatory Response Syndrome: Not Applicable Sepsis Protocol: For patient's 13 years and over: Temp is 96.8 and below OR 101 and greater Pulse >90 BPM Resp >20/minute Acutely Altered Mental Status Are patient's symptoms suggestive of a new infection, such as: -Pneumonia -Skin, Soft Tissue -Endocarditis -UTI -Bone, Joint Infection -Implantable Device -Acute Abdominal Infection -Wound Infection -Meningitis -Blood Stream Catheter Infection -Unknown Musculoskeletal Complaint Exam - Back Pain Complaint/Exam Mechanism of Injury: Reports: No known trauma Onset/Duration: Chronic but awakened with worsening pain Symptoms Are: Still present Timing: Constant Episodes Lasting: Hours Initial Severity: Moderate Current Severity: Moderate Location: Reports: Radiating Character: Reports: Sharp, Aching Aggravating: Reports: Movements, Bending, Walking, Cough Alleviating: Reports: Rest (Reduced) Associated Signs and Symptoms: Reports: Weakness ( and fatigue). Denies: Swelling, Redness, Bruising, Fever, Numbness, Tingling, Abdominal pain, Flank pain, Bladder incontinence, Bowel incontinence, Weight loss, Pain with weight bearing TAD Risk Factors: Reports: None AAA Risk Factors: Reports: None Cauda Equina Risk Factors: Reports: None Epidural Abcess Risk Factors: Reports: None Related Surgical History: Reports: None Focal Tenderness: Yes Paraspinal Muscle Tenderness: Yes Paraspinal Muscle Spasm: No Scoliosis: No Lordosis: No Kyphosis: Yes SLR Test: Right Negative, Left Negative Hip Motion Testing Pain: Right Negative, Left Negative Focal Weakness: Present: None Focal Sensory Loss: Present: None Gait: Present: Unsteady Differential Diagnoses: Fracture, Osteoporosis (Spinal osteoarthirits), Strain Review of Systems - Review Of Systems Constitutional: Reports: Weakness Eyes: Reports: No symptoms Ears, Nose, Mouth, Throat: Reports: No symptoms Respiratory: Reports: Cough, Wheezing Cardiac: Reports: No symptoms GI: Reports: No symptoms : Reports: No symptoms Musculoskeletal: Reports: Back pain, Muscle stiffness Skin: Reports: No symptoms Neurological: Reports: No symptoms Endocrine: Reports: No symptoms Hematologic/Lymphatic: Reports: No symptoms All Other Systems: Reviewed and Negative Past Medical History - Past Medical History Previously Healthy: No Endocrine: Reports: None Cardiovascular: Reports: None Respiratory: Reports: COPD, Asthma Hematological: Reports: Anemia, Other (Von Willebrand's Dz) Gastrointestinal: Reports: Liver (Hepatitis C) Genitourinary: Reports: Kidney stones Neuro/Psych: Reports: Anxiety, Depression, Parkinson's Musculoskeletal: Reports: None, Other Cancer: Reports: Lung (CA right lung: October 15, 2014 appt with oncologist in [place]) Last Menstrual Period: N/A Other Pertinent Past Medical History: necrotizing fascitis right butt - Surgical History General Surgical History: Reports: , Cholecystectomy, Orthopedic (hip femur(x6), right knee, mandible surgery) - Family History Family History: Reports: Unknown - Social History Smoking Status: Current every day smoker, Light tobacco smoker Hx Substance Use: Yes (Smokes [place].) Alcohol Screening: None - Immunizations Tetanus Shot up to Date: No Influenza Vaccine within 12 Months: No Pneumococcal Vaccine up to Date: No Physical Exam - Physical Exam Appearance: Ill-appearing Ill-appearing: Mild Pain Distress: Moderate Eyes: SAMEERA, EOMI, Conjunctiva clear ENT: Ears normal, Nose normal, Oropharynx normal Neck: Supple Respiratory: Breath sounds diminished, Rhonchi, Wheezes Cardiovascular: RRR, Pulses normal, No rub, No murmur GI/: Soft, Nontender, No masses, Bowel sounds normal, No Organomegaly Musculoskeletal: Normal strength, ROM intact, No edema, No calf tenderness Skin: Warm Neurological: Sensation intact, Motor intact, Cranial nerves intact, Oriented Psychiatric: Affect appropriate, Mood appropriate, Anxious Interpretation - Radiology Interpretation Radiology Interpretation By: Radiologist Exam Interpreted: CT Scan (Lumbar Spine-Neural foraminal stenosis-multiple levels;), Other (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 bronchiolitis, emphysema, CAD, Stomach thickening; rt Upper lobe consolidation-chronic, no change, Scarring vs neoplastic vs recurrent) Re-Evaluation - Re-Evaluation Time of Re-Evaluation: 13:55 Status: Improved Vital Signs Stable: Yes Appearance: NAD Lungs: Other (less congestion) Skin: Warm and Dry Neuro: Alert and Oriented X3 CV: RRR Critical Care Note - Critical Care Note Total Time (mins): 120 Course - Course Hematology/Chemistry: 09/05/18 10:10 09/05/18 10:10 Orders, Labs, Meds: Lab Review 09/05/18 09/05/18 09/05/18 10:10 10:10 10:10 WBC 18.28 H RBC 4.23 Hgb 12.6 Hct 41.5 MCV 98.1 MCH 29.8 MCHC 30.4 L RDW Coeff of Krista 19.2 H Plt Count 348 Immature Gran % (Auto) 1.3 Neut % (Auto) 46.9 Lymph % (Auto) 9.4 L [place] % (Auto) 41.1 H Eos % (Auto) 0.9 Baso % (Auto) 0.4 Immature Gran # (Auto) 0.2 Neut # (Auto) 8.6 H Lymph # (Auto) 1.7 [place] # (Auto) 7.5 H Eos # (Auto) 0.2 Baso # (Auto) 0.1 Puncture Site O2 Saturation ABG pH ABG pCO2 ABG pO2 ABG HCO3 ABG Total CO2 ABG Base Excess Arjun Test FiO2 % Sodium 139.6 Potassium 3.80 Chloride 105.1 Carbon Dioxide 27.7 Anion Gap 10.60 BUN 7.9 Creatinine 0.56 L Estimated GFR (MDRD) 107.00 BUN/Creatinine Ratio 14.10 Glucose 107.1 H Calcium 9.11 Total Bilirubin 0.52 AST 31.2 ALT 14.2 Alkaline Phosphatase 117.8 Total Creatine Kinase 97.7 NT-Pro-B Natriuret Pep 261.000 H Total Protein 6.73 Albumin 4.17 Globulin 2.56 Albumin/Globulin Ratio 1.62 09/05/18 10:45 WBC RBC Hgb Hct MCV MCH MCHC RDW Coeff of Krista Plt Count Immature Gran % (Auto) Neut % (Auto) Lymph % (Auto) [place] % (Auto) Eos % (Auto) Baso % (Auto) Immature Gran # (Auto) Neut # (Auto) Lymph # (Auto) [place] # (Auto) Eos # (Auto) Baso # (Auto) Puncture Site R rad O2 Saturation 93.0 L ABG pH 7.396 ABG pCO2 39.4 ABG pO2 67.0 L ABG HCO3 24.2 ABG Total CO2 25 ABG Base Excess -1 Arjun Test + FiO2 % 21.0 Sodium Potassium Chloride Carbon Dioxide Anion Gap BUN Creatinine Estimated GFR (MDRD) BUN/Creatinine Ratio Glucose Calcium Total Bilirubin AST ALT Alkaline Phosphatase Total Creatine Kinase NT-Pro-B Natriuret Pep Total Protein Albumin Globulin Albumin/Globulin Ratio Orders Category Date Time Status ABG DRAW REQUEST Stat CARDIO 09/05/18 10:42 Completed EKG-(ED ONLY) Stat CARDIO 09/05/18 10:03 Completed NEBULIZER TREATMENT Stat CARDIO 09/05/18 10:41 Completed NPO REMINDER: IMAGING ONCE CARE 09/05/18 10:11 Completed IV [ED IV/MEDIPORT/POWERPORT] .ONCE EMERGENCY 09/05/18 10:02 Active ABG Stat LAB 09/05/18 10:45 Completed CBC W/ AUTO DIFF Stat LAB 09/05/18 10:10 Completed CMP [COMPREHENSIVE METABOLIC PANEL] Stat LAB 09/05/18 10:10 Completed CPK [CREATINE KINASE] Stat LAB 09/05/18 10:10 Completed NT-PROBNP Stat LAB 09/05/18 10:10 Completed 0.9 % Sodium Chloride [Saline Flush] MEDS 09/05/18 10:04 Discontinued 1 syr IVF PRN PRN Ipratropium/Albuterol Neb [Duoneb] MEDS 09/05/18 10:41 Discontinued 1 vial NEB ONCE STA Levofloxacin/D5w [Levaquin] 100 ml MEDS 09/05/18 13:35 Discontinued IV .STK-MED Levofloxacin/D5w [Levaquin] 500 mg MEDS 09/05/18 13:31 Discontinued Premix 100 ml D5w 1 bag IV ONCE Methylprednisolone Sod Succ/Pf [Solu-Medrol 125 mg] MEDS 09/05/18 13:33 Discontinued 125 mg IM ONCE STA Methylprednisolone Sod Succ/Pf [Solu-Medrol 125 mg] MEDS 09/05/18 13:42 Discontinued 125 [address] IVP ONCE STA [address] CHEST W/CONTRAST Stat RADS 09/05/18 10:[address] LUMBAR SPINE W/O CONTRAST Stat RADS 09/05/18 10:[address] THORACIC SPINE W/O CONTRAST Stat RADS 09/05/18 10:11 Completed Medications Discontinued Medications Generic Name Dose Route Start Last Admin Trade Name Freq PRN Reason Stop Dose Admin Albuterol/Ipratropium 1 vial 09/05/18 10:41 09/05/18 10:49 Duoneb NEB 09/05/18 10:42 1 vial ONCE STA Administration Levofloxacin/Dextrose 500 mg/ 100 mls @ 100 mls/hr 09/05/18 13:31 09/05/18 13 :41 Dextrose IV 09/05/18 14:30 100 mls/hr ONCE STA Administration Methylprednisolone Sodium Succinate 125 mg 09/05/18 13:33 09/05/18 13:41 Solu-Medrol 125 Mg IM 09/05/18 13:34 125 mg ONCE STA Administration Methylprednisolone Sodium Succinate 125 mg 09/05/18 13:42 09/05/18 13:45 Solu-Medrol 125 Mg IVP 09/05/18 13:43 Not Given ONCE STA Sodium Chloride 1 syr 09/05/18 10:04 Saline Flush IVF PRN PRN To flush IV Vital Signs: Temp Pulse Resp BP Pulse Ox 09/05/18 09:50 99.3 F 104 H 20 139/88 94 L Departure - Departure Time of Disposition: 14:20 Disposition: HOME SELF-CARE Discharge Problem: Back pain, Degenerative spinal arthritis, Compression fracture of thoracic spine, non-traumatic, Mass of right lung, Acute bronchitis Instructions: Chronic Back Pain (DC), Acute Bronchitis (ED), Emphysema (DC), Lung Cancer (DC) Condition: Good Pt referred to PMD for follow-up: Yes (Dr Magana) IPMP verified?: No Additional Instructions: Take meds as directed. See PCP next week Prescriptions: Acetaminophen with Codeine [Tylenol/Codeine Elixir 120/12 mg/5 ml] 5 ml PO Q6H PRN #4 oz PRN Reason: Severe coughing Levofloxacin [Levaquin] 500 mg PO QDAC #6 tablet Prednisone 10 mg PO DAILY #1 tab.ds.pk Allergies/Adverse Reactions: Allergies varenicline tartrate [From Chantix] Allergy (Severe, Verified 09/05/18 09:52) hypertension ketorolac tromethamine [From Toradol] Adverse Reaction (Mild, Verified 09/05/18 09:52) acetaminophen [From Fioricet] Adverse Reaction (Verified 09/05/18 09:52) butalbital [From Fioricet] Adverse Reaction (Verified 09/05/18 09:52) caffeine [From Fioricet] Adverse Reaction (Verified 09/05/18 09:52) morphine Adverse Reaction (Verified 09/05/18 09:52) nalbuphine HCl [From Nubain] Adverse Reaction (Verified 09/05/18 09:52) ondansetron HCl [From Zofran (as hydrochloride)] Adverse Reaction (Verified 04/15 09:52) pentazocine lactate [From Talwin] Adverse Reaction (Verified 09/05/18 09:52) propoxyphene napsylate [From Darvocet-N 100] Adverse Reaction (Verified 09:52) Home Medications: Ambulatory Orders Gabapentin [Neurontin] 800 mg PO QID 09/25/14 Cyclobenzaprine HCl 10 mg PO PRN PRN 18 Hydrocodone/Acetaminophen [Hydrocodone-Acetamin 10-325 Mg] 1 each PO QID Cefdinir [Omnicef] 300 mg PO Q12HR 7 Days #14 capsule 08/05/18 Solifenacin Succinate [Vesicare] 10 mg PO BEDTIME 08/05/18 Acetaminophen with Codeine [Tylenol/Codeine Elixir 120/12 mg/5 ml] 5 ml PO Q6H PRN #4 oz 09/05/18 Levofloxacin [Levaquin] 500 mg PO QDAC #6 tablet 09/05/18 Prednisone 10 mg PO DAILY #1 tab.ds.pk 09/05/18 Disposition Discussed With: Patient Respiratory Complaint Exam - Respiratory Complaint/Exam Onset/Duration: Chronic but worsening Symptoms Are: Still present Timing: Constant Initial Severity: Mild Current Severity: Moderate Location: Chest Character: Reports: Non-productive cough, Bronchospastic cough Aggravating: Reports: Allergens Alleviating: Reports: Upright position Associated Signs and Symptoms: Reports: Dyspnea, Pleuritic chest pain, Wheezing Related History: Reports: Similar episode Related Surgical History: Reports: None Cardiac Risk Factors: Reports: None Pseudomonas Risk Factors: Reports: None Tuberculosis Risk Factors: Reports: None Status Asthmaticus Risk Factors: Reports: None Home Oxygen Use: No Recent Stress Test: No Recent Echo/LV Function: No Current Antibiotic Use: No Respiratory Distress: None Inadequate Respiratory Effort: No Dysphagia Present: No Stridor Present: No JVD Present: No Accessory Muscle Use: No Retractions: Not Present Diminished Breath Sounds: Yes Prolonged Respiration: Expiratory phase Sinus Tenderness: None Grunting Respirations: No Kussmaul Respirations: No Differential Diagnoses: COPD Exacerbation, Pneumonia, URI Quality Indicators For Pneumonia: Empiric Antibiotic Rx
[2018-09-05] MEDS ORDERED: DUONEB NEB STA (10:41)
--- NOTE | 2018-09-05 12:05 | CT ---
EXAM: CT of the chest with contrast History: Short of breath, cough. Comparison: Chest CT 08/05/2018 Technique: Multiplanar CT images through the thorax were obtained following administration of IV con trast Findings: Heart size is normal. Coronary calcifications. Great vessels are unremarkable. No axill ashley lymphadenopathy. No pathologically enlarged mediastinal or hilar lymph nodes. Emphysema. Diffu se bronchial wall thickening. There are areas of mucous plugging. Mild tree in bud opacities. No s ignificant interval change in the irregular area of consolidation within the right upper lobe. Within the visualized upper abdomen, status post cholecystectomy. Bilateral renal cysts. Spleen is not seen. Prominent gastric folds and mucosal irregularity of the mid gastric body. Stool is seen w ithin the colon. No acute osseous abnormalities. Impression: 1. Bronchitis/bronchiolitis. 2. No significant interval change in the irregular right upper lobe consolidation could represent sc arring or recurrent malignancy. 3. Emphysema. 4. Coronary artery disease. 5. Irregular wall thickening of the stomach could represent gastritis or malignancy. Recommend uppe r endoscopy.
--- NOTE | 2018-09-05 12:11 | CT ---
EXAM: CT of the lumbar spine without contrast History: Lower back pain radiating down right leg. Comparison: CT thoracic spine 09/05/2018 Technique: Multiplanar CT images through the lumbar spine were obtained without the administration o f IV contrast Findings: Atherosclerotic vascular calcifications. A few punctate bilateral renal calculi. Bilater al renal cysts some which are complicated on the right. Moderate to large amount of colonic stool. Osteopenia. No acute fracture or subluxation of the lumbar spine. Chronic compression deformity inv olving superior endplate of L1. No suspicious lytic or blastic osseous lesions identified. Mild to moderate multilevel disc space narrowing. T12-L1: No significant bony central canal stenosis or bony neural foraminal narrowing. L1-L2: No significant bony central canal stenosis or bony neural foraminal narrowing. L2-L3: No significant bony central canal stenosis or bony neural foraminal narrowing. L3-L4: No significant bony central canal stenosis. Mild to moderate bilateral bony neural foraminal narrowing secondary to uncovertebral and facet hypertrophy. L4-L5: No significant bony central canal stenosis. Moderate to severe left and moderate right bony neural foraminal narrowing secondary to uncovertebral and facet hypertrophy. Left-sided laminectomy L5-S1: No significant bony central canal stenosis. Severe right and mild to moderate left bony neur al foraminal narrowing secondary to ligamentous and facet hypertrophy. Impression: 1. No acute osseous abnormality of the lumbar spine. 2. Level by level analysis as detailed above. There is severe right-sided bony neural foraminal henok rowing at L5-S1.
--- NOTE | 2018-09-05 12:22 | CT ---
EXAM: CT thoracic spine. HISTORY: Back pain. TECHNIQUE: CT thoracic spine without contrast. Multiplanar images provided. FINDINGS: Comparison is to 08/05/2018 CT thorax. Bones appear demineralized. There is exaggerated thoracic kyphosis. Diffuse degenerative disc disea se most noted mid spine inferiorly. Mild anterior wedge deformity of a few of the mid thoracic verte bral bodies at the apex of the kyphotic curvature. Superior endplate deformity at what appears repre sent L1 is at least mild in degree. These spinal findings are stable. No acute fracture is obvious. There is no spondylolisthesis or significant retropulsion. There is no scoliosis. Scattered bridg ing osteophytic spurs of the spine are noted. No noticeable central canal stenosis or disc bulging. Lungs reveal evidence of scattered fibrosis and emphysema. There is a spiculated discoid mass in th e right upper lobe similar to that previously seen which could be neoplastic or fibrotic. This measu res about 2.5 x 1.8 cm axial dimension and 1.2 cm coronal. IMPRESSION: 1. No acute abnormality identified regarding the thoracic spine. Stable spinal findings. 2. Stellate mass in the right upper lobe could be fibrotic or neoplastic, stable.
[2018-09-05] MEDS ORDERED: LEVAQUIN 500 MG in PREMIX 100 ML D5W 1 BAG IV STA (13:31)
[2018-09-05] MEDS ORDERED: SOLU-MEDROL 125 MG IM STA (13:33)
[2018-09-05] MEDS ORDERED: LEVAQUIN 100 ML IV ONE (13:35)
[2018-09-05] MEDS ORDERED: SOLU-MEDROL 125 MG IVP STA (13:42)
== END 2018-09-05 15:24 | disposition home or self-care (01) ==
LOC: ED 09:50
DX: J20.9 Acute bronchitis, unspecified (principal); M48.54XA Collapsed vertebra, not elsewhere classified, thoracic region, initial encounter for fracture; M47.9 Spondylosis, unspecified; R91.8 Other nonspecific abnormal finding of lung field; M54.9 Dorsalgia, unspecified; R06.02 Shortness of breath; J44.9 Chronic obstructive pulmonary disease, unspecified; G20 Parkinson's disease; F17.210 Nicotine dependence, cigarettes, uncomplicated; Z85.118 Personal history of other malignant neoplasm of bronchus and lung; Z87.442 Personal history of urinary calculi
CPT/HCPCS: 36415; 80053; 82550; 82803; 83880; 85025; 93005; 93010; 94640; 96365; 96375; 99284

== ENCOUNTER 2018-10-22 00:02 | Outpatient (CLI) ==
[2018-10-22 00:26] VITALS: BMI 19.5
== END 2018-10-22 00:08 | disposition critical access hospital (66) ==
LOC: AMBL 00:02
PROVIDERS: ATTEND Family Medicine
DX: M25.511 Pain in right shoulder (principal); M25.551 Pain in right hip; M54.2 Cervicalgia; M54.9 Dorsalgia, unspecified; S40.211A Abrasion of right shoulder, initial encounter; S70.211A Abrasion, right hip, initial encounter; W19.XXXA Unspecified fall, initial encounter

== ENCOUNTER 2018-10-22 00:14 | Emergency (ER) | payer OTHER ==
[2018-10-22] MEDS ORDERED: TENIVAC IM ONE (00:25)
[2018-10-22 00:26] VITALS: TEMP 99; BMI 19.5
[2018-10-22 01:51] VITALS: BP 130/72
--- NOTE | 2018-10-22 02:22 | CT ---
EXAM: CT scan brain without contrast HISTORY: Fall COMPARISON: CT scan brain 07/30/2018 FINDINGS: Contiguous axial images obtained from skull base to the convexities without contrast utili zing 5-mm collimation. Sagittal and coronal reconstructions were imaged and reviewed.. The ventricl es and CSF spaces are prominent compared with age appropriate atrophy. There is periventricular hypo density noted compatible with chronic microvascular disease. Atherosclerotic changes are seen involv ing cavernous internal carotid arteries. The visualized paranasal sinuses and mastoid air cells are clear. The calvarium is intact. IMPRESSION: No intracranial findings.
--- NOTE | 2018-10-22 02:25 | CT ---
EXAM: CT scan cervical spine HISTORY: Fall COMPARISON: CT scan cervical spine 02/06/2018 FINDINGS: Contiguous axial images obtained through the cervical spine utilizing 2-mm collimation. S agittal and coronal structures were imaged and reviewed.. The vertebral bodies normal height. There is 2.5 mm retrolisthesis C4/C5. Degenerate disc disease is noted at C4-C5. There is no acute fract ure or dislocation... There is facet arthropathy with multilevel neural foraminal narrowing IMPRESSION: No acute findings.
--- NOTE | 2018-10-22 02:31 | CT ---
EXAM: CT scan lumbar spine HISTORY: Fall COMPARISON: CT scan lumbar spine 09/05 2018 FINDINGS: Contiguous axial images obtained through the lumbar spine utilizing 3-mm collimation. Sag ittal and coronal reconstructions were imaged and reviewed. There is moderate generalized osteopenia . There is a remote compression deformity of the superior endplate of L1. There is no acute fractur e or dislocation.. There has been a left sided laminectomy L4-L5. IMPRESSION: No acute findings.
--- NOTE | 2018-10-22 02:32 | CT ---
EXAM: CT thoracic spine without contrast. HISTORY: Fall. PROCEDURE: Contiguous axial CT images of the thoracic spine without contrast with coronal and sagitt al reformats. FINDINGS: Comparison made with CT of 09/05/2018. The axial images are obliqued which limits the exam . There is levoscoliosis of the thoracic spine. There is kyphosis of the thoracic spine. There is normal alignment of the thoracic vertebral bodies and facets. There are chronic anterior wedging and compression deformities of the T6 and T7 vertebral bodies. There is an old fracture of the right T8 transverse process. No evidence of acute fracture in the thoracic spine. The intervertebral disc s paces are maintained. There is multilevel vacuum disc phenomenon. There is multilevel facet arthrop athy. Redemonstrated is irregular consolidation in the right upper lobe. Impression: No evidence of acute fracture. Chronic T6 and T7 compression fractures. Chronic right T8 transverse process fracture. Normal alignment of the thoracic spine with degenerative changes as described. Levoscoliosis and kyphosis of the thoracic spine. Right upper lobe consolidation. Please see report from CT chest of 09/05/2018 for further details.
--- NOTE | 2018-10-22 02:33 | DI ---
EXAM: Three-view right shoulder. HISTORY: Fall. FINDINGS: There is a minimally displaced fracture of the distal right clavicle. The acromioclavicula r joint is maintained. Evaluation of the glenohumeral joint is limited without a Y-view. There is a displaced fracture of the right lateral fourth rib. There is irregular consolidation in the right u pper lobe. Impression: Minimally-displaced fracture of the distal right clavicle. Displaced fracture of the right lateral fourth rib. Irregular consolidation in the right upper lobe. Please see report from CT chest of 09/05/2018 for f enriquether details.
--- NOTE | 2018-10-22 02:35 | CT ---
EXAM: CT scan pelvis without contrast HISTORY: Fall COMPARISON: CT scan abdomen 11/09/2016 FINDINGS: Contiguous axial images obtained of the pelvis without contrast utilizing 3-mm collimation . Sagittal and coronal reconstructions were imaged and reviewed.. There is mild generalized osteope tiffanie. The hip joints and SI joints are intact.. No acute fracture or dislocation . There is mild co lonic fecal stasis. IMPRESSION: No acute findings
--- NOTE | 2018-10-22 02:36 | DI ---
EXAM: Three-view right elbow. HISTORY: Fall. FINDINGS: The bones are intact with no evidence of fracture. The joint spaces are maintained. No so ft tissue abnormality. Impression: Negative right elbow.
--- NOTE | 2018-10-22 03:01 | ED.PDOC ---
General ED Provider: Dr. MARYAM FERGUSON-ER Chief Complaint: Multiple Trauma Stated Complaint: i fell over a dogs leash Time Seen by Physician: 00:20 Mode of Arrival: Ambulance Information Source: Patient Exam Limitations: No limitations Primary Care Provider: TENISHA KIM Nursing and Triage Documentation Reviewed and Agree: Yes Does patient meet sepsis criteria?: No System Inflammatory Response Syndrome: Not Applicable Sepsis Protocol: For patient's 13 years and over: Temp is 96.8 and below OR 101 and greater Pulse >90 BPM Resp >20/minute Acutely Altered Mental Status Are patient's symptoms suggestive of a new infection, such as: -Pneumonia -Skin, Soft Tissue -Endocarditis -UTI -Bone, Joint Infection -Implantable Device -Acute Abdominal Infection -Wound Infection -Meningitis -Blood Stream Catheter Infection -Unknown Trauma/Injury Complaint Exam - Truncal Trauma Complaint/Exam Location of Pain: Reports: Right, Chest Symptoms Are: Still present Onset of Pain: Reports: Immediate Initial Severity: Mild Current Severity: Mild Mechanism: Reports: Fall Aggravating: Reports: Movement, Deep breathing Alleviating: Reports: None Associated Signs and Symptoms: Denies: Short of air, Chest pain, Cough, Hematuria, Abdominal pain, Fever, Nausea, Vomiting Immobilization Removed Post Exam: Yes Vertebral Tenderness Present: No Vertebral Deformity Present: No Trachial Deviation Present: No JVD Present: No Crepitus Present: No Diminished Breath Sounds: No Reproducible Pain at: right cheset Muffled Heart Sounds Present: No Paradoxical Chest Wall Movement Present: No Abdominal Guarding Present: No Abdominal Rigidity Present: No Referred Shoulder Pain (Kehr's Sign) Present: No Review of Systems - Review Of Systems Constitutional: Reports: No symptoms Eyes: Reports: No symptoms Ears, Nose, Mouth, Throat: Reports: No symptoms Respiratory: Reports: No symptoms Cardiac: Reports: No symptoms GI: Reports: No symptoms : Reports: No symptoms Musculoskeletal: Reports: No symptoms Skin: Reports: No symptoms Neurological: Reports: Headache Endocrine: Reports: No symptoms Hematologic/Lymphatic: Reports: No symptoms All Other Systems: Reviewed and Negative Past Medical History - Past Medical History Previously Healthy: No Endocrine: Reports: None Cardiovascular: Reports: None Respiratory: Reports: COPD, Asthma Hematological: Reports: Anemia, Other (Von Willebrand's Dz) Gastrointestinal: Reports: Liver (Hepatitis C) Genitourinary: Reports: Kidney stones Neuro/Psych: Reports: Anxiety, Depression, Parkinson's Musculoskeletal: Reports: None, Other Cancer: Reports: Lung (CA right lung: October 15, 2014 appt with oncologist in [place]) Last Menstrual Period: UNKNOWN Other Pertinent Past Medical History: necrotizing fascitis right butt - Surgical History General Surgical History: Reports: , Cholecystectomy, Orthopedic (hip femur(x6), right knee, mandible surgery) - Family History Family History: Reports: Unknown - Social History Smoking Status: Current every day smoker, Light tobacco smoker Hx Substance Use: Yes (Smokes [place].) Alcohol Screening: None - Immunizations Tetanus Shot up to Date: (UNKNOWN) Influenza Vaccine within 12 Months: No Pneumococcal Vaccine up to Date: No Physical Exam - Physical Exam Appearance: Well-appearing, No pain distress, Well-nourished Pain Distress: Moderate Eyes: SAMEERA, EOMI, Conjunctiva clear ENT: Ears normal, Nose normal, Oropharynx normal Neck: Supple Respiratory: Airway patent, Breath sounds clear, Breath sounds equal, Respirations nonlabored Cardiovascular: RRR, Pulses normal, No rub, No murmur GI/: Soft, Nontender, No masses, Bowel sounds normal, No Organomegaly Musculoskeletal: Normal strength, No edema, No calf tenderness, Limited ROM Skin: Warm, Dry, Normal color Neurological: Sensation intact, Motor intact, Reflexes intact, Cranial nerves intact, Alert, Oriented Psychiatric: Affect appropriate, Mood appropriate Interpretation - Radiology Interpretation Radiology Interpretation By: Radiologist Radiology Results: Positive Exam Interpreted: CT Scan Critical Care Note - Critical Care Note Total Time (mins): 0 Course - Course Orders, Labs, Meds: Orders Category Date Time Status Tetanus and Diphtheria Tox/Pf [Tenivac] MEDS 10/22/18 00:25 Discontinued 0.5 ml IM .ONCE ONE CT CERVICAL SPINE W/O CONTRAST Stat RADS 10/22/18 00:[address] HEAD W/O CONTRAST Stat RADS 10/22/18 00:[address] LUMBAR SPINE W/O CONTRAST Stat RADS 10/22/18 00:[address] PELVIS W/O CONTRAST Stat RADS 10/22/18 00:[address] THORACIC SPINE W/O CONTRAST Stat RADS 10/22/18 00:23 Completed ELBOW, RIGHT MIN 3 VIEWS Stat RADS 10/22/18 00:24 Completed SHOULDER, RIGHT MIN 2V Stat RADS 10/22/18 00:24 Completed Medications Discontinued Medications Generic Name Dose Route Start Last Admin Trade Name Freq PRN Reason Stop Dose Admin Tetanus/Diphtheria Toxoids Adsorbed 0.5 ml 10/22/18 00:25 10/22/18 01:55 Tenivac IM 10/22/18 00:26 0.5 ml .ONCE ONE Administration Vital Signs: Temp Pulse Resp BP Pulse Ox 10/22/18 01:50 130/72 10/22/18 00:16 99 F 95 H 20 140/103 H 93 L Departure - Departure Time of Disposition: 03:01 Disposition: HOME SELF-CARE Discharge Problem: Rib fracture Qualifiers: Encounter type: initial encounter Rib fracture type: single rib Fracture type: closed Laterality: right Qualified Code(s): S22.31XA - Fracture of one rib, right side, initial encounter for closed fracture Clavicle fracture Qualifiers: Encounter type: initial encounter Clavicle location: unspecified part of clavicle Fracture type: closed Fracture alignment: nondisplaced Laterality: right Qualified Code(s): S42.001A - Fracture of unspecified part of right clavicle, initial encounter for closed fracture Instructions: Diphtheria/Tetanus Vaccine (By injection) Condition: Fair Pt referred to PMD for follow-up: Yes IPMP verified?: No Additional Instructions: percocet 5mg q 4hrs prn pain #12---f/u with your oncologist abnormal xray of the chest Allergies/Adverse Reactions: Allergies varenicline tartrate [From Chantix] Allergy (Severe, Verified 09/05/18 09:52) hypertension ketorolac tromethamine [From Toradol] Adverse Reaction (Mild, Verified 09/05/18 09:52) acetaminophen [From Fioricet] Adverse Reaction (Verified 09/05/18 09:52) butalbital [From Fioricet] Adverse Reaction (Verified 09/05/18 09:52) caffeine [From Fioricet] Adverse Reaction (Verified 09/05/18 09:52) morphine Adverse Reaction (Verified 09/05/18 09:52) nalbuphine HCl [From Nubain] Adverse Reaction (Verified 09/05/18 09:52) ondansetron HCl [From Zofran (as hydrochloride)] Adverse Reaction (Verified 04/15 09:52) pentazocine lactate [From Talwin] Adverse Reaction (Verified 09/05/18 09:52) propoxyphene napsylate [From Darvocet-N 100] Adverse Reaction (Verified 09:52) Home Medications: Ambulatory Orders Gabapentin [Neurontin] 800 mg PO QID 09/25/14 Albuterol Sulfate [Albuterol Sulfate Hfa] 1 - 2 inh IH Q4-6H PRN 10/22/18 Disposition Discussed With: Patient
== END 2018-10-22 03:46 | disposition home or self-care (01) ==
LOC: ED 00:14
DX: S22.31XA Fracture of one rib, right side, initial encounter for closed fracture (principal); S42.031A Displaced fracture of lateral end of right clavicle, initial encounter for closed fracture; W01.0XXA Fall on same level from slipping, tripping and stumbling without subsequent striking against object, initial encounter; F17.210 Nicotine dependence, cigarettes, uncomplicated
CPT/HCPCS: 90471; 90714; 99284; 99285

== ENCOUNTER 2018-10-24 21:06 | Emergency (ER) ==
[2018-10-24 21:19] VITALS: BP 114/78; TEMP 97.9; BMI 17.6
[2018-10-24] MEDS ORDERED: STADOL IM STA (21:37)
--- NOTE | 2018-10-24 22:31 | ED.PDOC ---
General ED Provider: Dr. ELOISA KHAN Chief Complaint: Fall Stated Complaint: Patient is a 68 year old who comes to the ER two days after a fall with Fractured clavical and right rib. She was treated with pain medication and a sling. She State that she fell again but does not think she got injured. She has run out of her medications for pain and next PCP appointment is next week. Time Seen by Physician: 21:15 Mode of Arrival: Walk-In Information Source: Patient Primary Care Provider: TENISHA KIM Nursing and Triage Documentation Reviewed and Agree: Yes Does patient meet sepsis criteria?: No System Inflammatory Response Syndrome: Not Applicable Sepsis Protocol: For patient's 13 years and over: Temp is 96.8 and below OR 101 and greater Pulse >90 BPM Resp >20/minute Acutely Altered Mental Status Are patient's symptoms suggestive of a new infection, such as: -Pneumonia -Skin, Soft Tissue -Endocarditis -UTI -Bone, Joint Infection -Implantable Device -Acute Abdominal Infection -Wound Infection -Meningitis -Blood Stream Catheter Infection -Unknown Review of Systems - Review Of Systems Constitutional: Reports: No symptoms Eyes: Reports: No symptoms Ears, Nose, Mouth, Throat: Reports: No symptoms Respiratory: Reports: No symptoms Cardiac: Reports: Chest pain (Right chest wall ) GI: Reports: No symptoms Musculoskeletal: Reports: Joint pain (right clavical ), Muscle pain Skin: Reports: Bruising Neurological: Reports: Anxiety Endocrine: Reports: No symptoms Hematologic/Lymphatic: Reports: No symptoms All Other Systems: Reviewed and Negative Past Medical History - Past Medical History Previously Healthy: No Endocrine: Reports: None Cardiovascular: Reports: None Respiratory: Reports: COPD, Asthma Hematological: Reports: Anemia, Other (Von Willebrand's Dz) Gastrointestinal: Reports: Liver (Hepatitis C) Genitourinary: Reports: Kidney stones Neuro/Psych: Reports: Anxiety, Depression, Parkinson's Musculoskeletal: Reports: None, Other Cancer: Reports: Lung (CA right lung: October 15, 2014 appt with oncologist in [place]) Last Menstrual Period: menopausal at 46 y/o Other Pertinent Past Medical History: necrotizing fascitis right butt - Surgical History General Surgical History: Reports: , Cholecystectomy, Orthopedic (hip femur(x6), right knee, mandible surgery) - Family History Family History: Reports: Unknown - Social History Smoking Status: Current every day smoker, Light tobacco smoker Hx Substance Use: No Alcohol Screening: None - Immunizations Tetanus Shot up to Date: Yes (3 days ago) Influenza Vaccine within 12 Months: No Pneumococcal Vaccine up to Date: No Physical Exam - Physical Exam Appearance: Ill-appearing Ill-appearing: Mild Pain Distress: Severe Eyes: SAMEERA, EOMI, Conjunctiva clear Neck: Supple Respiratory: Airway patent, Breath sounds clear, Breath sounds equal, Respirations nonlabored GI/: Soft Musculoskeletal: Limited ROM (on the right shoulder) Skin: Warm, Dry Neurological: Alert, Oriented Psychiatric: Anxious Re-Evaluation - Re-Evaluation Time of Re-Evaluation: 22:50 Status: Improved (after Stadol ) Pain Level: better Critical Care Note - Critical Care Note Total Time (mins): 0 Course - Course Orders, Labs, Meds: Orders Category Date Time Status Butorphanol Tartrate [Stadol] MEDS 10/24/18 21:37 Discontinued 1 mg IM ONCE STA Medications Discontinued Medications Generic Name Dose Route Start Last Admin Trade Name Freq PRN Reason Stop Dose Admin Butorphanol Tartrate 1 mg 10/24/18 21:37 10/24/18 21:47 Stadol IM 10/24/18 21:38 1 mg ONCE STA Administration Vital Signs: Temp Pulse Resp BP Pulse Ox 10/24/18 21:07 97.9 F 99 H 20 114/78 94 L Departure - Departure Time of Disposition: 22:50 Disposition: HOME SELF-CARE Discharge Problem: Rib fracture Qualifiers: Encounter type: subsequent encounter Rib fracture type: single rib Fracture type: closed Laterality: right Fracture healing: with routine healing Qualified Code(s): S22.31XD - Fracture of one rib, right side, subsequent encounter for fracture with routine healing Clavicle fracture Qualifiers: Encounter type: subsequent encounter Clavicle location: unspecified part of clavicle Fracture type: closed Fracture alignment: displaced Laterality: right Fracture healing: with routine healing Qualified Code(s): S42.001D - Fracture of unspecified part of right clavicle, subsequent encounter for fracture with routine healing Contusion Qualifiers: Encounter type: initial encounter Contusion area: shoulder Laterality: right Qualified Code(s): S40.011A - Contusion of right shoulder, initial encounter Instructions: Rib Fracture (ED), Shoulder Pain (ED) Condition: Fair Pt referred to PMD for follow-up: Yes IPMP verified?: No Additional Instructions: take Medications as prescribed Follow up with PCP in 3 days. Prescriptions: Oxycodone HCl [Oxycodone] 5 mg PO Q6H #25 tablet Allergies/Adverse Reactions: Allergies varenicline tartrate [From Chantix] Allergy (Severe, Verified 10/24/18 21:19) hypertension ketorolac tromethamine [From Toradol] Adverse Reaction (Mild, Verified 10/24/18 21:19) acetaminophen [From Fioricet] Adverse Reaction (Verified 10/24/18 21:19) butalbital [From Fioricet] Adverse Reaction (Verified 10/24/18 21:19) caffeine [From Fioricet] Adverse Reaction (Verified 10/24/18 21:19) morphine Adverse Reaction (Verified 10/24/18 21:19) nalbuphine HCl [From Nubain] Adverse Reaction (Verified 10/24/18 21:19) ondansetron HCl [From Zofran (as hydrochloride)] Adverse Reaction (Verified 21:19) pentazocine lactate [From Talwin] Adverse Reaction (Verified 10/24/18 21:19) propoxyphene napsylate [From Darvocet-N 100] Adverse Reaction (Verified 21:19) Home Medications: Ambulatory Orders Gabapentin [Neurontin] 800 mg PO QID 09/25/14 Albuterol Sulfate [Albuterol Sulfate Hfa] 1 - 2 inh IH Q4-6H PRN 10/22/18 Oxycodone HCl [Oxycodone] 5 mg PO Q6H #25 tablet 10/24/18 Disposition Discussed With: Patient
== END 2018-10-24 22:52 | disposition home or self-care (01) ==
LOC: ED 21:06
DX: S40.011A Contusion of right shoulder, initial encounter (principal); W19.XXXA Unspecified fall, initial encounter; S22.31XD Fracture of one rib, right side, subsequent encounter for fracture with routine healing; S42.001D Fracture of unspecified part of right clavicle, subsequent encounter for fracture with routine healing; F17.210 Nicotine dependence, cigarettes, uncomplicated
CPT/HCPCS: 96372; 99282

== ENCOUNTER 2018-11-08 16:30 | Emergency (ER) ==
[2018-11-08 16:31] VITALS: BMI 17.6
[2018-11-08 16:34] VITALS: BP 154/88; TEMP 99.5
[2018-11-08] MEDS ORDERED: DILAUDID 0.5 MG/0.5 ML SYRINGE IM STA (16:46)
[2018-11-08] MEDS ORDERED: ZOFRAN 4 MG/2 ML IM STA (16:47)
--- NOTE | 2018-11-08 17:12 | ED.PDOC ---
General ED Provider: Dr. OJ KING Chief Complaint: Chest Wall Injury/Pain Stated Complaint: CHEST WALL INJURY, RIGHT ELBOW, CLAVICLE PAIN SINCE SEPTEMBER/2818. NO NEW INJURY Time Seen by Physician: 17:00 Mode of Arrival: Walk-In Information Source: Patient Exam Limitations: No limitations Primary Care Provider: TENISHA KIM Nursing and Triage Documentation Reviewed and Agree: Yes Does patient meet sepsis criteria?: No System Inflammatory Response Syndrome: Not Applicable Sepsis Protocol: For patient's 13 years and over: Temp is 96.8 and below OR 101 and greater Pulse >90 BPM Resp >20/minute Acutely Altered Mental Status Are patient's symptoms suggestive of a new infection, such as: -Pneumonia -Skin, Soft Tissue -Endocarditis -UTI -Bone, Joint Infection -Implantable Device -Acute Abdominal Infection -Wound Infection -Meningitis -Blood Stream Catheter Infection -Unknown Musculoskeletal Complaint Exam - Upper Extremity Complaint/Exam Location of Pain: Reports: Right (ELBOW, CHEST WALL INJURY AFTER A FALL A FEW DAYS ) Mechanism of Injury: Reports: Trauma (A FEW DAYS ), Other (RIGHT ELBOW AND RIGHT CLAVICLE INJURY ) Onset/Duration: LAST WEEK Symptoms Are: Still present Timing: Intermittent Episodes Lasting: Hours Initial Severity: Moderate Current Severity: Moderate Location: Reports: Discrete (ELBOW ) Character: Reports: Aching, Throbbing, Spasmodic Aggravating: Reports: Movement, Lifting, Flexion, Extension Alleviating: Reports: Rest Related History: Reports: Similar episode Non-Orthopedic Risk Factors: Reports: None DVT Risk Factors: Reports: None Septic Arthritis Risk Factors: Reports: Extremes of age Related Surgical History: Reports: None Upper Extremity Findings: Present: Limited range of motion. Absent: Ecchymosis , Abnormal contour, Rotation, Laceration, Erythema, Warmth Compartment Syndrome Risk Factors: Present: Pain Differential Diagnoses: Closed Fracure (FALL WAS ON THE September) Review of Systems - Review Of Systems Constitutional: Reports: No symptoms Eyes: Reports: No symptoms Ears, Nose, Mouth, Throat: Reports: No symptoms Respiratory: Reports: Cough Cardiac: Reports: No symptoms GI: Reports: No symptoms : Reports: No symptoms Musculoskeletal: Reports: Other (chest wall pain right sided after a fall . the fall is not a new injury) Skin: Reports: No symptoms Neurological: Reports: No symptoms Endocrine: Reports: No symptoms Hematologic/Lymphatic: Reports: No symptoms All Other Systems: Reviewed and Negative Past Medical History - Past Medical History Previously Healthy: No Endocrine: Reports: None Cardiovascular: Reports: None Respiratory: Reports: COPD, Asthma Hematological: Reports: Anemia, Other (Von Willebrand's Dz) Gastrointestinal: Reports: Liver (Hepatitis C) Genitourinary: Reports: Kidney stones Neuro/Psych: Reports: Anxiety, Depression, Parkinson's Musculoskeletal: Reports: None, Other Cancer: Reports: Lung (CA right lung: October 15, 2014 appt with oncologist in [place]) Last Menstrual Period: N/A Other Pertinent Past Medical History: necrotizing fascitis right butt - Surgical History General Surgical History: Reports: , Cholecystectomy, Orthopedic (hip femur(x6), right knee, mandible surgery) - Family History Family History: Reports: Unknown - Social History Smoking Status: Current every day smoker, Light tobacco smoker Hx Substance Use: No Alcohol Screening: None - Immunizations Tetanus Shot up to Date: No Influenza Vaccine within 12 Months: No Pneumococcal Vaccine up to Date: No Physical Exam - Physical Exam Appearance: Well-appearing, No pain distress, Well-nourished Eyes: SAMEERA, EOMI, Conjunctiva clear ENT: Ears normal, Nose normal, Oropharynx normal Respiratory: Airway patent, Breath sounds clear, Breath sounds equal, Respirations nonlabored Cardiovascular: RRR, Pulses normal, No rub, No murmur GI/: Soft, Nontender, No masses, Bowel sounds normal, No Organomegaly Musculoskeletal: Limited ROM (right arm right shoulder right chest wall) Skin: Warm, Dry, Normal color Neurological: Sensation intact, Motor intact, Reflexes intact, Cranial nerves intact, Alert, Oriented Psychiatric: Affect appropriate, Mood appropriate Critical Care Note - Critical Care Note Total Time (mins): 0 Course - Course Orders, Labs, Meds: Orders Category Date Time Status Hydromorphone HCl [Dilaudid 0.5 mg/0.5 ml Syringe] MEDS 11/08/18 16:46 Discontinued 2 mg IM ONCE STA Ondansetron HCl/Pf [Zofran 4 mg/2 ml] MEDS 11/08/18 16:47 Discontinued 4 mg IM ONCE STA Medications Discontinued Medications Generic Name Dose Route Start Last Admin Trade Name Freq PRN Reason Stop Dose Admin Hydromorphone HCl 2 mg 11/08/18 16:46 11/08/18 17:09 Dilaudid 0.5 Mg/0.5 Ml Syringe IM 11/08/18 16:47 2 mg ONCE STA Administration Ondansetron HCl 4 mg 11/08/18 16:47 11/08/18 17:11 Zofran 4 Mg/2 Ml IM 11/08/18 16:48 Not Given ONCE STA Vital Signs: Temp Pulse Resp BP Pulse Ox 11/08/18 16:31 99.5 F 92 H 20 154/88 H 98 Departure - Departure Time of Disposition: 19:00 Disposition: HOME SELF-CARE Discharge Problem: Chest wall pain Instructions: Arm Pain (ED) Condition: Good Pt referred to PMD for follow-up: Yes IPMP verified?: No Additional Instructions: Follow up with your PCP Take medication as prescribed Avoid heavy lifting/exercise Prescriptions: Hydrocodone Bit/Acetaminophen [Rowe 10-325] 1 each PO Q6HR #14 tablet Allergies/Adverse Reactions: Allergies varenicline tartrate [From Chantix] Allergy (Severe, Verified 11/08/18 16:35) hypertension ketorolac tromethamine [From Toradol] Adverse Reaction (Mild, Verified 11/08/18 16:35) acetaminophen [From Fioricet] Adverse Reaction (Verified 11/08/18 16:35) butalbital [From Fioricet] Adverse Reaction (Verified 11/08/18 16:35) caffeine [From Fioricet] Adverse Reaction (Verified 11/08/18 16:35) morphine Adverse Reaction (Verified 11/08/18 16:35) nalbuphine HCl [From Nubain] Adverse Reaction (Verified 11/08/18 16:35) ondansetron HCl [From Zofran (as hydrochloride)] Adverse Reaction (Verified 16:35) pentazocine lactate [From Talwin] Adverse Reaction (Verified 11/08/18 16:35) propoxyphene napsylate [From Darvocet-N 100] Adverse Reaction (Verified 16:35) Home Medications: Ambulatory Orders Gabapentin [Neurontin] 800 mg PO QID 09/25/14 Hydrocodone Bit/Acetaminophen [Rowe 10-325] 1 each PO Q6HR #14 tablet 11/08/18
== END 2018-11-08 18:00 | disposition home or self-care (01) ==
LOC: ED 16:30
DX: R07.89 Other chest pain (principal); S59.901A Unspecified injury of right elbow, initial encounter; S49.91XA Unspecified injury of right shoulder and upper arm, initial encounter; W19.XXXA Unspecified fall, initial encounter; F17.210 Nicotine dependence, cigarettes, uncomplicated
CPT/HCPCS: 96372; 99283

== ENCOUNTER 2019-01-06 19:20 | Emergency (ER) ==
[2019-01-06 19:20] VITALS: BMI 17.6
[2019-01-06 19:31] VITALS: BP 136/81; TEMP 98.3
[2019-01-06] MEDS ORDERED: SOLU-MEDROL 125 MG IM STA (20:14)
--- NOTE | 2019-01-06 20:18 | ED.PDOC ---
General ED Provider: Dr. ELOISA KHAN Chief Complaint: Rash Stated Complaint: Patient is a 68 year old female who comes to the ER with rash on the body that she was seen for by PCP. She was given Keflex which even though she says it does not help she states that the itching is better. Was in [place] recently and had an IV placed and thinks that it caused infection. PCP thought is was bug bites. She begs to differ. Time Seen by Physician: 20:16 Mode of Arrival: Walk-In Information Source: Patient Primary Care Provider: TENISHA KIM Nursing and Triage Documentation Reviewed and Agree: Yes Does patient meet sepsis criteria?: No System Inflammatory Response Syndrome: Not Applicable Sepsis Protocol: For patient's 13 years and over: Temp is 96.8 and below OR 101 and greater Pulse >90 BPM Resp >20/minute Acutely Altered Mental Status Are patient's symptoms suggestive of a new infection, such as: -Pneumonia -Skin, Soft Tissue -Endocarditis -UTI -Bone, Joint Infection -Implantable Device -Acute Abdominal Infection -Wound Infection -Meningitis -Blood Stream Catheter Infection -Unknown Skin Complaint Exam - Skin/Soft Tissue Complaint/Exam Onset/Duration: 1 week Symptoms Are: Still present Timing: Constant Initial Severity: Severe Current Severity: Moderate Character: Reports: Redness, Swelling, Raised, Painful Aggravating: Reports: Touch Associated Signs and Symptoms: Reports: Itching, Tenderness Related History: Reports: Insect bite/sting, Recent travel Related Surgical History: Reports: None Recent Exposure to Others w/Similar Symptoms: No Skin Findings: Present: Erythema, Skin lesion (miltiple raised skin Lesions) Joint Tenderness Present: No Differential Diagnoses: Infection Review of Systems - Review Of Systems Constitutional: Reports: No symptoms Eyes: Reports: No symptoms Ears, Nose, Mouth, Throat: Reports: No symptoms Respiratory: Reports: No symptoms Cardiac: Reports: No symptoms GI: Reports: No symptoms : Reports: No symptoms Musculoskeletal: Reports: No symptoms Skin: Reports: Lesions, Rash Neurological: Reports: No symptoms Endocrine: Reports: No symptoms Hematologic/Lymphatic: Reports: No symptoms All Other Systems: Reviewed and Negative Past Medical History - Past Medical History Previously Healthy: No Endocrine: Reports: None Cardiovascular: Reports: None Respiratory: Reports: COPD, Asthma Hematological: Reports: Anemia, Other (Von Willebrand's Dz) Gastrointestinal: Reports: Liver (Hepatitis C) Genitourinary: Reports: Kidney stones Neuro/Psych: Reports: Anxiety, Depression, Parkinson's Musculoskeletal: Reports: None, Other Cancer: Reports: Lung (CA right lung: October 15, 2014 appt with oncologist in [place]) Last Menstrual Period: menopausal/ tubal lig Other Pertinent Past Medical History: necrotizing fascitis right butt - Surgical History General Surgical History: Reports: , Cholecystectomy, Orthopedic (hip femur(x6), right knee, mandible surgery) - Family History Family History: Reports: Unknown - Social History Smoking Status: Current every day smoker, Light tobacco smoker Hx Substance Use: No Alcohol Screening: None - Immunizations Tetanus Shot up to Date: Yes Influenza Vaccine within 12 Months: No Pneumococcal Vaccine up to Date: No Physical Exam - Physical Exam Appearance: Well-appearing Ill-appearing: None Pain Distress: None Neck: Supple Respiratory: Airway patent, Breath sounds clear, Breath sounds equal, Respirations nonlabored Cardiovascular: RRR, Pulses normal, No rub, No murmur GI/: Soft, Nontender, No masses, Bowel sounds normal, No Organomegaly Musculoskeletal: Normal strength Skin: Warm, Dry Neurological: Alert, Oriented Psychiatric: Anxious Critical Care Note - Critical Care Note Total Time (mins): 0 Course - Course Orders, Labs, Meds: Orders Category Date Time Status Methylprednisolone Sod Succ/Pf [Solu-Medrol 125 mg] MEDS 01/06/19 20:14 Discontinued 125 mg IM ONCE STA Medications Discontinued Medications Generic Name Dose Route Start Last Admin Trade Name Freq PRN Reason Stop Dose Admin Methylprednisolone Sodium Succinate 125 mg 01/06/19 20:14 01/06/19 20:23 Solu-Medrol 125 Mg IM 01/06/19 20:15 125 mg ONCE STA Administration Vital Signs: Temp Pulse Resp BP Pulse Ox 01/06/19 19:21 98.3 F 99 H 20 136/81 93 L Departure - Departure Time of Disposition: 20:39 Disposition: HOME SELF-CARE Discharge Problem: Dermatitis, Impetigo due to Staphylococcus aureus Instructions: Impetigo (ED), Dermatitis (ED) Condition: Stable Pt referred to PMD for follow-up: Yes IPMP verified?: No Additional Instructions: continue taking your prescribed Keflex until gone Take steroids as prescribed Follow up with PCP in 3 days Prescriptions: Prednisone 20 mg PO DAILYWM #5 tablet Allergies/Adverse Reactions: Allergies varenicline tartrate [From Chantix] Allergy (Severe, Verified 01/06/19 19:28) hypertension ketorolac tromethamine [From Toradol] Adverse Reaction (Mild, Verified 01/06/19 19:28) acetaminophen [From Fioricet] Adverse Reaction (Verified 01/06/19 19:28) butalbital [From Fioricet] Adverse Reaction (Verified 01/06/19 19:28) caffeine [From Fioricet] Adverse Reaction (Verified 01/06/19 19:28) morphine Adverse Reaction (Verified 01/06/19 19:28) nalbuphine HCl [From Nubain] Adverse Reaction (Verified 01/06/19 19:28) ondansetron HCl [From Zofran (as hydrochloride)] Adverse Reaction (Verified 05/15 19:28) pentazocine lactate [From Talwin] Adverse Reaction (Verified 01/06/19 19:28) propoxyphene napsylate [From Darvocet-N 100] Adverse Reaction (Verified 19:28) Home Medications: Ambulatory Orders Gabapentin [Neurontin] 800 mg PO QID 09/25/14 Cyclobenzaprine HCl 10 mg PO PRN 01/03/19 Prednisone 20 mg PO DAILYWM #5 tablet 01/06/19 Disposition Discussed With: Patient
== END 2019-01-06 20:40 | disposition home or self-care (01) ==
LOC: ED 19:20
DX: L01.00 Impetigo, unspecified (principal); B95.61 Methicillin susceptible Staphylococcus aureus infection as the cause of diseases classified elsewhere; F17.210 Nicotine dependence, cigarettes, uncomplicated
CPT/HCPCS: 96372; 99282

== ENCOUNTER 2019-01-24 13:09 | Emergency (ER) ==
[2019-01-24 13:09] VITALS: BMI 17.6
[2019-01-24 13:11] VITALS: BP 123/76; TEMP 98.3
[2019-01-24] MEDS ORDERED: MORPHINE 2 MG/ML SYRINGE IM STA (13:23)
[2019-01-24] MEDS ORDERED: ZOFRAN 4 MG/2 ML IM STA (13:23)
--- NOTE | 2019-01-24 14:21 | CT ---
EXAM: CT of the abdomen pelvis without contrast History: Abdominal trauma and right hip pain. Comparison: Chest CT 01/24/2019, CT abdomen pelvis 11/09/2016 Technique: Multiplanar CT images through the abdomen pelvis were obtained without the administration of IV contrast Findings: Subsegmental atelectasis seen within the lower lungs. Stable chronic compression fracture involving superior endplate of L1. No acute osseous abnormalities. Atherosclerotic vascular calcifications. Status post cholecystectomy. Spleen is not seen and likely has been surgically removed. Small nonobstructing bilateral renal calculi. A few bilateral renal c ysts are seen. The liver is mildly enlarged. No focal liver lesions. No peripancreatic inflammatio n. Adrenal glands are unremarkable. Large amount of colonic stool. No bladder wall thickening. Po stsurgical changes of the colon. There is subcutaneous air within the left gluteal musculature proba estefani from injection. The colon is distended. Postsurgical changes of the rectosigmoid colon. The re ctum is decompressed. Impression: 1. No acute traumatic injury identified within the abdomen or pelvis. 2. Large amount of colonic stool compatible with constipation. 3. The colon is distended and cannot exclude a partial obstruction at the level of postsurgical reaves ge involving the rectosigmoid colon.
--- NOTE | 2019-01-24 14:22 | CT ---
EXAM: CT of the cervical spine without contrast History: Head and neck trauma. Comparison: CT cervical spine 10/22/2018 Technique: Multiplanar CT images through the cervical spine were obtained without the administration of IV contrast Findings: Emphysema seen within the upper lungs. The visualized airway remains patent. No acute fracture or subluxation of the cervical spine. No prevertebral soft tissue swelling. Prede ntal space is not widened. Moderate disc space narrowing at C4-5. Bony spinal canal is not signific antly compromised. Multilevel bilateral bony neural foraminal narrowing secondary to uncovertebral a nd facet hypertrophy. Impression: No acute osseous abnormality of the cervical spine
--- NOTE | 2019-01-24 14:23 | CT ---
Exam: CT of the chest without intravenous contrast. Comparison: 09/05/2018. Reason for exam: Fall. FINDINGS: Image interpretation is limited by the lack of intravenous contrast. 3-D MIP reformatted images of the osseous structures were obtained. Similar appearing nodular consolidation with air bronchograms in the right upper lobe as seen on axia l image number 17 not significantly changed from previous study. No pneumothorax or pleural effusion . There is mild basilar atelectasis/early infection. The aorta measures up to 3 cm at the level of the arch. Atherosclerotic disease is seen within the coronary arterial vasculature. Similar appearing healing left-sided rib fractures. No acute fracture or malalignment is seen. Ther e are also likely healed right-sided rib fractures. The gallbladder has been removed. Nonspecific calcifications are seen in the right kidney with a hig h density nodule in the right renal parenchyma. Impression: 1. Similar appearing right upper lobe consolidation with air bronchograms. Imaging findings may rep resent scarring or recurrent malignancy. 2. Emphysematous disease without evidence of pneumothorax or pleural effusion. 3. Nonspecific calcification in the right kidney with high density nodule in the right renal parench yma. Findings likely represent a renal cyst. If clinical concern exists, ultrasound could be perfor med for further characterization
--- NOTE | 2019-01-24 14:28 | ED.PDOC ---
General ED Provider: Dr. OJ KING Chief Complaint: Fall Stated Complaint: FALL DUE TO TRIPPPING OVER DOG Time Seen by Physician: 13:10 Mode of Arrival: Walk-In Information Source: Patient Exam Limitations: No limitations Primary Care Provider: TENISHA KIM Nursing and Triage Documentation Reviewed and Agree: Yes Does patient meet sepsis criteria?: No If yes, has appropriate treatment been initiated?: No System Inflammatory Response Syndrome: Not Applicable Sepsis Protocol: For patient's 13 years and over: Temp is 96.8 and below OR 101 and greater Pulse >90 BPM Resp >20/minute Acutely Altered Mental Status Are patient's symptoms suggestive of a new infection, such as: -Pneumonia -Skin, Soft Tissue -Endocarditis -UTI -Bone, Joint Infection -Implantable Device -Acute Abdominal Infection -Wound Infection -Meningitis -Blood Stream Catheter Infection -Unknown Trauma/Injury Complaint Exam - Trauma Complaint/Exam Location of Pain or Injury: Reports: Chest, Other (PELVIS) Mechanism of Injury: Reports: Fall Symptoms Are: Still present Timing of Treatment: Immediate Initial Severity: Moderate Current Severity: Moderate Character: Reports: Aching Aggravating: Reports: Movement Alleviating: Reports: None Associated Signs and Symptoms: Denies: LOC, Confusion, Memory loss, Lethargy, Vomiting, Bleeding, Bruising, Swelling, Extremity disuse, Painful respiration, Hoarseness, Dysphagia, Hemoptysis, Significant blood loss Related History: Reports: Similar episode Penetrating Injury Risk Factors: Reports: None Nexus Low Risk Criteria: No post-midline CS tender, No evidence of intoxicat., No Altered LOC, No focal neuro deficit, No distracting injuries Immobilization Removed Post Exam: No Glascow Coma Scale (see protocol): 15 Trauma Findings: Absent: [place] eyes, Hemotympanum, Nasal deformity, Dental tenderness, Dental injury, Dental malocclusion, Neck tenderness, Neck spasm, SubQ Air, Crepitus, Airway obstructed, Trachea displaced, Labored respirations, Decreased breath sounds, Muffled heart sounds, Weak pulses, Absent pulses, Abdominal distention Review of Systems - Review Of Systems Constitutional: Reports: No symptoms Eyes: Reports: No symptoms Ears, Nose, Mouth, Throat: Reports: No symptoms Respiratory: Reports: No symptoms Cardiac: Reports: Chest pain (WALL PAIN AFTER A FALL) GI: Reports: Abdominal pain (RUQ PAIN AFTER THE FALL) : Reports: No symptoms Musculoskeletal: Reports: No symptoms Skin: Reports: No symptoms Neurological: Reports: No symptoms Endocrine: Reports: No symptoms Hematologic/Lymphatic: Reports: No symptoms All Other Systems: Reviewed and Negative Past Medical History - Past Medical History Previously Healthy: No Endocrine: Reports: None Cardiovascular: Reports: None Respiratory: Reports: COPD, Asthma Hematological: Reports: Anemia, Other (Von Willebrand's Dz) Gastrointestinal: Reports: Liver (Hepatitis C) Genitourinary: Reports: Kidney stones Neuro/Psych: Reports: Anxiety, Depression, Parkinson's Musculoskeletal: Reports: None, Other Cancer: Reports: Lung (CA right lung: October 15, 2014 appt with oncologist in [place]) Last Menstrual Period: n/a Other Pertinent Past Medical History: necrotizing fascitis right butt - Surgical History General Surgical History: Reports: , Cholecystectomy, Orthopedic (hip femur(x6), right knee, mandible surgery) - Family History Family History: Reports: Unknown - Social History Smoking Status: Current every day smoker, Light tobacco smoker Hx Substance Use: No Alcohol Screening: None - Immunizations Influenza Vaccine within 12 Months: No Pneumococcal Vaccine up to Date: No Physical Exam - Physical Exam Appearance: Well-appearing, No pain distress, Well-nourished Eyes: SAMEERA, EOMI, Conjunctiva clear ENT: Ears normal, Nose normal, Oropharynx normal Respiratory: Airway patent, Breath sounds clear, Breath sounds equal, Respirations nonlabored Cardiovascular: RRR, Pulses normal, No rub, No murmur GI/: Soft, Nontender, No masses, Bowel sounds normal, No Organomegaly Musculoskeletal: Normal strength, ROM intact, No edema, No calf tenderness Skin: Warm, Dry, Normal color Neurological: Sensation intact, Motor intact, Reflexes intact, Cranial nerves intact, Alert, Oriented Psychiatric: Affect appropriate, Mood appropriate Interpretation - Radiology Interpretation Radiology Interpretation By: Radiologist Radiology Results: Positive (PULMONARY NODULE) Critical Care Note - Critical Care Note Total Time (mins): 0 Course - Course Orders, Labs, Meds: Orders Category Date Time Status Morphine Sulfate [Morphine 2 mg/ml Syringe] MEDS 01/24/19 13:23 Discontinued 4 mg IM ONCE STA Ondansetron HCl/Pf [Zofran 4 mg/2 ml] MEDS 01/24/19 13:23 Discontinued 4 mg IM ONCE STA CT ABDOMEN/PELVIS WO CONTRAST Stat RADS 01/24/19 13:[address] CERVICAL SPINE W/O CONTRAST Stat RADS 01/24/19 13:[address] CHEST W/O CONTRAST Stat RADS 01/24/19 13:24 Completed Medications Discontinued Medications Generic Name Dose Route Start Last Admin Trade Name Himasnhu PRN Reason Stop Dose Admin Morphine Sulfate 4 mg 01/24/19 13:23 01/24/19 13:34 Morphine 2 Mg/Ml Syringe IM 01/24/19 13:24 4 mg ONCE STA Administration Ondansetron HCl 4 mg 01/24/19 13:23 01/24/19 13:34 Zofran 4 Mg/2 Ml IM 01/24/19 13:24 4 mg ONCE STA Administration Vital Signs: Temp Pulse Resp BP Pulse Ox 01/24/19 13:09 98.3 F 84 16 123/76 94 L Departure - Departure Time of Disposition: 14:28 Disposition: HOME SELF-CARE Discharge Problem: Pulmonary nodule Sprain of chest wall Qualifiers: Encounter type: initial encounter Qualified Code(s): S23.8XXA - Sprain of other specified parts of thorax, initial encounter Chest pain Qualifiers: Chest pain type: unspecified Qualified Code(s): R07.9 - Chest pain, unspecified Instructions: Chest Wall Pain (ED), Thoracic Pain (ED), Pulmonary Nodules (ED) Condition: Good Pt referred to PMD for follow-up: Yes IPMP verified?: No Additional Instructions: Please call your Family Physician as soon as possible to schedule a follow-up appointment.YOU MUST HAVE CT SCAN CHEST IN 3 MONTHS SEE YOUR MD Allergies/Adverse Reactions: Allergies varenicline tartrate [From Chantix] Allergy (Severe, Verified 01/06/19 19:28) hypertension ketorolac tromethamine [From Toradol] Adverse Reaction (Mild, Verified 01/06/19 19:28) acetaminophen [From Fioricet] Adverse Reaction (Verified 01/06/19 19:28) butalbital [From Fioricet] Adverse Reaction (Verified 01/06/19 19:28) caffeine [From Fioricet] Adverse Reaction (Verified 01/06/19 19:28) nalbuphine HCl [From Nubain] Adverse Reaction (Verified 01/06/19 19:28) ondansetron HCl [From Zofran (as hydrochloride)] Adverse Reaction (Verified 05/15 19:28) pentazocine lactate [From Dwight] Adverse Reaction (Verified 01/06/19 19:28) propoxyphene napsylate [From Darvocet-N 100] Adverse Reaction (Verified 19:28) Home Medications: Ambulatory Orders Albuterol Sulfate [Albuterol Sulfate Hfa] 8.5 puff IN QID PRN 01/24/19
[2019-01-24] MEDS ORDERED: DECADRON 4 MG/ML SDV IM STA (14:34)
== END 2019-01-24 15:02 | disposition home or self-care (01) ==
LOC: ED 13:09
DX: S23.8XXA Sprain of other specified parts of thorax, initial encounter (principal); R07.9 Chest pain, unspecified; R91.1 Solitary pulmonary nodule; S39.93XA Unspecified injury of pelvis, initial encounter; R10.11 Right upper quadrant pain; W01.0XXA Fall on same level from slipping, tripping and stumbling without subsequent striking against object, initial encounter; G20 Parkinson's disease; F17.210 Nicotine dependence, cigarettes, uncomplicated
CPT/HCPCS: 96372; 99282